=== PATIENT | male | born 1950 | race Caucasian/White ===

== ENCOUNTER 2017-08-27 18:04 | Inpatient (IN) | payer MEDICARE, MEDICAID ==
[2017-08-27] MEDS ORDERED: Pantoprazole 40 mg EC Tab PO STA (18:21)
--- NOTE | 2017-08-27 18:21 | ED Physician Chart ---
ED Chief Complaint/HPI - Patient Information Date Seen:: 08/27/17 Time Seen:: 18:21 Chief Complaint:: Left leg pain, unsteady gait History of Present Illness:: 67 yo male with a history of diabetic neuropathy, has left leg pain and unsteady gait requiring walker and/or wheelchair for 2 years worsening for a few weeks. [facility] and was brought to ER for further evaluation. He has a history of left lower extremity DVT 2 years ago. Allergies:: Allergies Allergy/AdvReac Type Severity Reaction Status Date / Time aspirin Allergy Verified 08/27/17 18:05 Vitals:: Vital Signs - 8 hr 08/27/17 18:10 Temp 99.6 F HR 62 RR 17 BP 151/78 O2 Sat % 97 ED Review of Systems - Review of Systems General/Constitutional: No fever, No chills, Weakness Skin: No skin lesions Head: No headache Eyes: No loss of vision Neck: No neck pain Cardio Vascular: No chest pain, edema Pulmonary: No SOB GI: No nausea, No vomiting G/U: No dysuria Musculoskeletal: Other (leg pain) Psychiatric: Depression ED Past Medical History - Past Medical History Obtainable: Yes Past Medical History: HTN, DM, Asthma/COPD, DVT/PE Social History: Non Smoker, No Alcohol, No Drug Use Surgical History: other (basal cell carcinoma removal) Family Medical History - Family Member Mother History Unknown: Yes ED Physical Exam - Physical Examination General/Constitutional: Awake, Alert Other Gen/Cons comments:: oriented to self, time and place. Head: Atraumatic Eyes: PERRL, EOMI Skin: No ecchymosis ENMT: External ears, nose nl Neck: Full ROM w/o pain Respiratory: Clear to Auscultation, No Wheeze/Rhonchi/Rales Cardio Vascular: RRR, No murmur, gallop, rubs, NL S1 S2 GI: No tenderness/rebounding/guarding Other Extremities comments:: Right ankle edema 2+ Other Neuro/Psych comments:: DTR bilateral patellar reflex 1+, decreased sensation on the left lower extremity ED Assessment - Assessment General Assessment: 67 yo male has DM II, diabetic neuropathy, anemia, right lower extremity edema, unsteady gait and dehydration. Critical Care Time: 45 min Excludes all billable procedures: Yes This condition life threatening/high prob of deterioration: No Assessment/Comments:: CBC, CMP, A1c, BNP, Trop I right lower extremity venous u/s to rule out DVT given history of DVT. Lumbar spine X ray to evaluate potential degenerative lumbar spine disease causing lumbar radiculopathy. ED Septic Shock - . Is Septic Shock (SBP<90, OR Lactate>4 mmol\L) present?: No - <6hrs of presentation: Vital Signs: Vital Signs - 8 hr 08/27/17 18:10 Temp 99.6 F HR 62 RR 17 BP 151/78 O2 Sat % 97
[2017-08-27] MEDS ORDERED: Pantoprazole 40 mg EC Tab PO ONE (18:25)
[2017-08-27 19:16] LABS: % BASOPHILS 0.1 % (0.0-2.0); % EOSINOPHILS 1.9 % (0.0-5.0); % LYMPHOCYTES 22.8 % (20.0-50.0); % MONOCYTES 5.5 % (2.0-10.0); % NEUTROPHILS 69.7 % (40.0-80.0); HEMOGLOBIN 11.9 gm/dL (12-16); MEAN CELL VOLUME 90.6 fl (80-99); MEAN CORPUSCULAR HEMOGLOBIN 30.7 pg (27.0-31.0); MEAN CORPUSCULAR HGB CONC 33.9 pg (28.0-36.0); MEAN PLATELET VOLUME 10.8 fl; NEUTROPHILE ABSOLUTE 5.4 Th/cmm (1.8-8.0); PLATELET COUNT 128 Th/cmm (150-400); RED BLOOD COUNT 3.86 Mil/cmm (3.80-5.80); RED CELL DISTRIBUTION WIDTH 12.6 % (11.5-20.0); WHITE BLOOD COUNT 7.6 Th/cmm (4.8-10.8)
[2017-08-27 19:34] LABS: ALB/GLOB RATIO 1.2 (1.0-1.8); ALKALINE PHOSPHATASE 87 U/L (34-104); ANION GAP 9.5 (7.0-16.0); BILIRUBIN,TOTAL 0.2 mg/dL (0.3-1.0); BUN - UREA NITROGEN 30 mg/dL (7-25); BUN/CREATININE RATIO 23.1; CALCIUM SERUM 9.3 mg/dL (8.6-10.3); CARBON DIOXIDE 23.9 mEq/L (21.0-31.0); CHLORIDE 111 mEq/L (98-107); CREATININE - SERUM 1.3 mg/dL (0.7-1.3); GLUCOSE 143 mg/dL (70-105); POTASSIUM SERUM 4.4 mEq/L (3.5-5.1); SGOT 12 U/L (13-39); SGPT/ALT 16 U/L (7-52); SODIUM SERUM 140 mEq/L (136-145)
[2017-08-27 19:42] LABS: BNP 33.5 pg/mL (5.0-100.0)
--- NOTE | 2017-08-27 22:49 | ER Physician Documentation ---
DATE OF SERVICE: HISTORY OF PRESENT ILLNESS: I was endorsed by previous ER physician, Dr. Barraza who advised that to call Dr. Miller who referred the patient to the Emergency Room because of the patient having pain in the left lower extremity. He had a previous history of some kind of venous problems in the legs or arterial problem in the leg and his leg is hurting. He has diabetes mellitus and other medical problems. Laboratory workup was done. He ordered EKG, which was within normal limits. Troponin was within normal limits. Hemoglobin A1c is elevated to 6.6 and the patient's electrolytes were sodium 140, potassium 4.4, chloride 111, CO2 23.9, glucose is 143, BUN 30, creatinine is 1.3, BUN and creatinine ratio is 23.1, albumin is 3.8, SGOT 12, and SGPT is 16. The patient was on multiple medications. Just I am dictating in case of if Dr. Barraza has not dictated. [facility] believe a [facility]term care facility, [facility] just in case if Dr. Barraza has not dictated, I just will mention what he is taking in order to facilitate the availability to Dr. Miller about the medication is solifenacin succinate, that is VESIcare 5 mg p.o. daily; Tylenol on a p.r.n. basis; Tylenol with codeine 300 mg/30 mg #3 p.r.n.; guaifenesin; Robitussin-DM; Tylenol p.r.n.; Pepcid 20 mg p.o. b.i.d.; Plavix 75 mg p.o. once a day; amlodipine 10 mg p.o. daily; multivitamin 1 capsule daily; gabapentin 300 mg p.o. daily; metformin 500 mg p.o. b.i.d.; magnesium hydroxide 30 mL p.r.n.; psyllium 1 packet p.o. daily, melatonin 10 mg p.o. at bedtime; lisinopril 5 mg p.o. daily; loperamide 2 mg p.o. q.6 hourly; atorvastatin; calcium; Lipitor 40 mg p.o. at bedtime; Coreg 12.5 mg b.i.d.; and docusate sodium 100 mg b.i.d. FINAL DIAGNOSES: 1. Pain in the lower extremities. 2. Diabetes mellitus. 3. The patient has peripheral neuropathy. 4. The patient has cough. 5. History of constipation. 6. Hypertension. 7. Hypercholesterolemia. 8. Hypertensive heart disease. 9. Inability to walk and uses walker to walk. The plan is to admit the patient and do further workup as needed. We will call Dr. Miller and ask what further things he wants to do and I believe he would like to admit the patient, so we will give him more advice and follow up his instructions. So plan, I was told that he would like to admit the patient to do a workup on this patient, probably ultrasound of the carotids, ultrasound of the lower extremities. EKG, I saw was within normal limits. [facility]# [id number]
[2017-08-27 23:40] VITALS: BP 131/82
[2017-08-28] MEDS: INSULIN ASPART SLIDING SCALE 100 UNITS/ML UNIT SUBQ SCH ×4 (00:50→17:24)
[2017-08-28 05:26] LABS: % BASOPHILS 0.2 % (0.0-2.0); % EOSINOPHILS 1.8 % (0.0-5.0); % LYMPHOCYTES 28.5 % (20.0-50.0); % MONOCYTES 8.6 % (2.0-10.0); % NEUTROPHILS 60.9 % (40.0-80.0); MEAN CELL VOLUME 90.4 fl (80-99); MEAN CORPUSCULAR HEMOGLOBIN 30.1 pg (27.0-31.0); MEAN CORPUSCULAR HGB CONC 33.3 pg (28.0-36.0); NEUTROPHILE ABSOLUTE 4.8 Th/cmm (1.8-8.0); PLATELET COUNT 128 Th/cmm (150-400); RED BLOOD COUNT 3.65 Mil/cmm (3.80-5.80); RED CELL DISTRIBUTION WIDTH 12.6 % (11.5-20.0); WHITE BLOOD COUNT 7.9 Th/cmm (4.8-10.8)
[2017-08-28 05:39] LABS: BUN - UREA NITROGEN 31 mg/dL (7-25); BUN/CREATININE RATIO 23.8; CARBON DIOXIDE 22.9 mEq/L (21.0-31.0); CHLORIDE 113 mEq/L (98-107); CHOLESTEROL 87 mg/dL (<200); CREATININE - SERUM 1.3 mg/dL (0.7-1.3); GLUCOSE 157 mg/dL (70-105); POTASSIUM SERUM 3.9 mEq/L (3.5-5.1); SODIUM SERUM 142 mEq/L (136-145); TRIGLYCERIDES 143 mg/dL (<150)
--- NOTE | 2017-08-28 07:37 | Diagnostic Imaging Report ---
Portable chest x-ray Time: 1859 hours History: Cough Allowing for portable technique the heart size is normal. No focal pulmonary parenchymal processes. No hilar or mediastinal abnormalities. Impression: No acute abnormalities.
--- NOTE | 2017-08-28 12:49 | Diagnostic Imaging Report ---
Bilateral lower extremity DVT study HISTORY: Pain, weakness COMPARISON: None Technique: Longitudinal and transverse sonographic images of the bilateral lower extremity veins were obtained with doppler analysis. FINDINGS: There is normal compressibility, augmentation and phasicity of the bilateral common femoral, superficial femoral, popliteal, and posterior tibial veins. No thrombus is visualized. IMPRESSION: No evidence of thrombus within the bilateral lower extremity veins.
--- NOTE | 2017-08-28 12:52 | Diagnostic Imaging Report ---
Bilateral lower extremity arterial Doppler study HISTORY: Pain COMPARISON: None Technique: Longitudinal and transverse sonographic images of the bilateral lower extremity arteries were obtained with doppler analysis. FINDINGS: Exam of the right side demonstrates moderate generalized atherosclerotic vascular disease. There is triphasic flow extending from the right common femoral artery to the right posterior tibial artery. There is monophasic flow and decreased velocity of the right dorsalis pedis artery at 22 cm/second. Right WES:1 Exam of the left side demonstrates moderate atherosclerotic vascular disease greatest distally. There is triphasic flow extending from the left common femoral to the left popliteal arteries. There is biphasic flow within the left tibialis anterior, tibialis posterior, and dorsalis pedis arteries. Increased velocity of the left posterior tibialis artery is seen is 135 cm/second. Left WES: 1 IMPRESSION: Moderate generalized atherosclerotic vascular disease, greatest distally. No sonographic evidence of occlusion. If indicated CT angiography of the lower extremities may also be obtained.
[2017-08-28] MEDS ORDERED: Fleet Enema 135 mL RC PRN (14:18)
[2017-08-28] MEDS ORDERED: APAP/Codeine 300 mg/30 mg Tab PO PRN (14:18)
[2017-08-28] MEDS ORDERED: Guaifenesin DM 10 ML UDC PO PRN (14:18)
[2017-08-28] MEDS ORDERED: Acetaminophen 500 MG TAB PO PRN (14:18)
[2017-08-28] MEDS ORDERED: Magnesium Hydroxide (MOM) 30 mL UDC PO PRN (14:18)
[2017-08-28] MEDS ORDERED: VTE Chemical Prophylaxis Screen/Admission MC PRN (15:56)
[2017-08-28] MEDS ORDERED: Non-Formulary Item 1 EA (Melatonin [Melatonin] 10 MG) PO SCH (21:00)
[2017-08-29] MEDS: INSULIN ASPART SLIDING SCALE 100 UNITS/ML UNIT SUBQ SCH ×4 (00:13→17:32)
[2017-08-29] MEDS ORDERED: Non-Formulary Item 1 EA (Solifenacin Succinate [Vesicare] 5 MG) PO SCH (09:00)
[2017-08-29 09:30] LABS: % BASOPHILS 0.6 % (0.0-2.0); % EOSINOPHILS 2.4 % (0.0-5.0); % LYMPHOCYTES 28.7 % (20.0-50.0); % MONOCYTES 7.7 % (2.0-10.0); % NEUTROPHILS 60.6 % (40.0-80.0); HEMATOCRIT 36.1 % (41.0-60); MEAN CELL VOLUME 91.3 fl (80-99); MEAN CORPUSCULAR HEMOGLOBIN 30.5 pg (27.0-31.0); MEAN CORPUSCULAR HGB CONC 33.4 pg (28.0-36.0); MEAN PLATELET VOLUME 10.6 fl; NEUTROPHILE ABSOLUTE 5.1 Th/cmm (1.8-8.0); PLATELET COUNT 132 Th/cmm (150-400); RED BLOOD COUNT 3.95 Mil/cmm (3.80-5.80); RED CELL DISTRIBUTION WIDTH 12.7 % (11.5-20.0); WHITE BLOOD COUNT 8.6 Th/cmm (4.8-10.8)
[2017-08-29 09:50] LABS: ANION GAP 9.4 (7.0-16.0); BUN - UREA NITROGEN 25 mg/dL (7-25); BUN/CREATININE RATIO 19.2; CALCIUM SERUM 8.7 mg/dL (8.6-10.3); CARBON DIOXIDE 23.5 mEq/L (21.0-31.0); CHLORIDE 110 mEq/L (98-107); CREATININE - SERUM 1.3 mg/dL (0.7-1.3); GLUCOSE 181 mg/dL (70-105); POTASSIUM SERUM 3.9 mEq/L (3.5-5.1); SODIUM SERUM 139 mEq/L (136-145)
[2017-08-29] MEDS: Multivitamin Tab PO SCH (09:56)
--- NOTE | 2017-08-29 12:00 | Diagnostic Imaging Report ---
Stenosis Findings: Real-time ultrasound examination of the extracranial carotid circulation was performed utilizing color Doppler technique. The study demonstrates calcified plaque formation along the course of common carotid arteries extending into origin of the external and external carotid arteries bilaterally with mild to moderate plaquing in the origin of internal carotid arteries bilaterally with subintimal thickening carotid bulbs bilaterally. Right internal carotid artery ratio 0.8 left internal correlation 1.9. Antegrade flow is noted in the vertebral circulation bilaterally. IMPRESSION: Mild to moderate plaque formation in the origin internal carotid arteries bilaterally without significant stenosis or alteration of flow. The intimal thickening carotid bulbs bilaterally.
[2017-08-30] MEDS: INSULIN ASPART SLIDING SCALE 100 UNITS/ML UNIT SUBQ SCH ×3 (01:13→12:33)
[2017-08-30] MEDS: Multivitamin Tab PO SCH (10:05)
--- NOTE | 2017-08-30 20:54 | History & Physical ---
ADMIT DATE: 08/27/2017 HISTORY OF PRESENT ILLNESS: A very well known patient to me. The patient lives in a correction, having a problem walking, and ataxia. The patient was complaining of leg pain. The patient is known to have a history of diabetes, history of hypertension, history of peripheral vascular disease, and the patient was evaluated in [facility], was seen by ____ and followed by ____ and the patient was admitted for severe neuropathy and ataxia, rule out TIA. PAST MEDICAL HISTORY: Hypertension, history of diabetes, history of cough, history of hypertensive cardiovascular disease, and difficulty walking. PHYSICAL EXAMINATION: HEAD: Normal. ENT: Normal. NECK: Supple and nontender. LUNGS: Clear. CARDIOVASCULAR SYSTEM: S1 and S2 heard. ABDOMEN: Soft. Bowel sounds are heard. CENTRAL NERVOUS SYSTEM: The patient is awake and alert, but complaining of severe neuropathy pain. DIAGNOSES: Severe neuropathy, ataxia, anemia, right lower extremity pain, unsteady gait, dehydration, diabetes, and hypertension. PLAN: The patient is being admitted for further workup with neurological and cardiovascular studies and I will follow the patient. JOB# [id number]
--- NOTE | 2017-09-01 22:36 | Discharge Summary ---
DATE OF DISCHARGE: 08/30/2017 COURSE OF TREATMENT: This is a 67-year-old male who was admitted from assisted facility through the Emergency Room due to severe leg pain on which series of treatment were done in the Emergency Room and the patient was found to have neuropathy. The patient was admitted to med/surg unit for observation and possible series of ultrasound with the diagnosis of severe neuropathy. The patient was discharged back to [facility]. Medication reconciliation done accordingly. Dr. Miller to follow the patient in assisted facility. JOB# [id number]
== END 2017-08-30 13:58 | disposition home or self-care (01) | DRG 74 ==
LOC: ER 18:04 → MSI 20:30 → TELE 08-28 02:31
PROVIDERS: ADMIT Internal Medicine; ATTEND Internal Medicine
DX: E11.42 Type 2 diabetes mellitus with diabetic polyneuropathy (principal); E11.51 Type 2 diabetes mellitus with diabetic peripheral angiopathy without gangrene; I11.9 Hypertensive heart disease without heart failure; K59.00 Constipation, unspecified; E86.0 Dehydration; J44.9 Chronic obstructive pulmonary disease, unspecified; D64.9 Anemia, unspecified; E78.00 Pure hypercholesterolemia, unspecified; R27.0 Ataxia, unspecified; Z88.8 Allergy status to other drugs, medicaments and biological substances; Z86.718 Personal history of other venous thrombosis and embolism
CPT/HCPCS: 36415-UA; 71010-TC; 80048-TC; 80053-TC; 80061-TC; 82948-90; 83036-90; 83880-TC; 84443-TC; 84484-TC; 85025-TC; 93005; 93880-TC; 93925-TC; 93970-TC-50; 97530; J1815; X3904; Z7502; Z7610

== ENCOUNTER 2018-05-03 14:40 | Inpatient (IN) | payer MEDICARE, MEDICAID ==
--- NOTE | 2018-05-03 15:17 | ED Physician Chart ---
ED Chief Complaint/HPI - Patient Information Date Seen:: 05/03/18 Time Seen:: 14:20 Chief Complaint:: Dizziness History of Present Illness:: onset x 3 days of weakness, dizziness, gait changes, unsteady gait, and vertigo ; no report of trauma, H/As, neck pain, C/P, SOB, Abd. Pain, A/N/V/D/C, fever, chills, or urinary s/s Allergies:: Allergies Allergy/AdvReac Type Severity Reaction Status Date / Time aspirin Allergy Verified 08/27/17 18:05 Historian:: Patient, EMS Review:: Nurse's Note Reviewed, Old Chart Reviewed, EMS run form Reviewed ED Review of Systems - Review of Systems General/Constitutional: No fever, No chills, No weight loss, No weakness, No diaphoresis, No edema, No loss of appetite Skin: No skin lesions, No rash, No bruising Head: No headache, No light-headedness Eyes: No loss of vision, No pain, No diplopia ENT: No earache, No nasal drainage, No sore throat, No tinnitus Neck: No neck pain, No swelling, No thyromegaly, No stiffness, No mass noted Cardio Vascular: No chest pain, No palpitations, No PND, No orthopnea, No edema Pulmonary: No SOB, No cough, No sputum, No wheezing GI: No nausea, No vomiting, No diarrhea, No pain, No melena, No hematochezia, No constipation, No hematemesis G/U: No dysuria, No frequency, No hematuria, No nacturia Musculoskeletal: No bone or joint pain, No back pain, No muscle pain Endocrine: No polyuria, No polydipsia Psychiatric: No prior psych history, No depression, No anxiety, No suicidal ideation, No homicidal ideation, No auditory hallucination, No visual hallucination Hematopoietic: No bruising, No lymphadenopathy Allergic/Immuno: No urticaria, No angioedema Neurological: Syncope, No focal symptoms, Weakness, No paresthesia, No headache , No seizure, Dizziness, No confusion, Vertigo ED Past Medical History - Past Medical History Obtainable: Yes Past Medical History: HTN, Dyslipidemia Family History: HTN Social History: Non Smoker, No Alcohol, No Drug Use, Single, Care Facility Surgical History: None Psychiatricy History: None Medication: Reviewed Family Medical History - Family Member Mother History Unknown: Yes ED Physical Exam - Physical Examination General/Constitutional: Awake, Well-developed, well-nourished, Alert, No distress, GCS 15, Non-toxic appearing, Ambulatory Head: Atraumatic Eyes: Lids, conjuctiva normal, PERRL, EOMI Skin: Nl inspection, No rash, No skin lesions, No ecchymosis, Well hydrated, No lymphadenopathy ENMT: External ears, nose nl, TM canals nl, Nasal exam nl, Lips, teeth, gums nl , Oropharynx nl, Tonsils nl Neck: Nontender, Full ROM w/o pain, No JVD, No nuchal rigidity, No bruit, No mass, No stridor Respiratory: Nl effort/Exclusion, Clear to Auscultation, No Wheeze/Rhonchi/Rales Cardio Vascular: RRR, No murmur, gallop, rubs, NL S1 S2, Carotid/Femoral/Distal pulses equal bilaterally GI: No tenderness/rebounding/guarding, No organomegaly, No hernia, Normal BS's, Nondistended, No mass/bruits, No McBurney tenderness, Rectum exam nl : No CVA tenderness Extremities: No tenderness or effusion, Full ROM, normal strength in all extremities, No edema, Normal digits & nails Neuro/Psych: Alert/oriented, DTR's symmetric, Normal sensory exam, Normal motor strength, Judgement/insight normal, Mood normal, Normal gait, No focal deficits Misc: Normal back, No paraspinal tenderness ED Labs/Radiology/EKG Results - Lab Results Comments:: + Anemia - Radiology Results Comments:: NAD - EKG Interpretations EKG Time:: 15:03 Rate & Rhythm: 66; NSR Comments:: non-specific st-t changes ED Septic Shock - . Is Septic Shock (SBP<90, OR Lactate>4 mmol\L) present?: No ED Reassessment (Disposition) - Reassessment Reassessment Condition:: Improved - Diagnosis Diagnosis:: Dizziness; Vertigo; TIA; Cardiac Arrythmias; Anemia - Aftercare/Follow up Instructions Aftercare/Follow-Up Instructions:: Counseled pt regarding lab results/diagnosis & need follow up, Counseled pt & family regarding lab results/diagnosis & need follow up - Patient Disposition Discharge/Transfer:: Acute Care w/in this hosp Accepting Physician:: Dr. Miller Time Called:: 1700 Time Responded:: 17:00 Admitted to:: Telemetry Spoke to:: Dr. Miller Admitting Medical Physician:: Dr. Miller Condition at Disposition:: Stable, Improved
[2018-05-03 15:34] LABS: EOSINOPHILE ABSOLUTE 0.2 Th/cmm (0.1-0.4); LYMPHOCYTE ABSOLUTE 1.7 Th/cmm (1.5-3.0); NEUTROPHILE ABSOLUTE 4.3 Th/cmm (1.8-8.0)
[2018-05-03 15:35] LABS: INR 1.08 (0.5-1.4); PROTHROMBIN TIME (TEST) 11.2 SECONDS (9.5-11.5)
[2018-05-03 15:37] LABS: % BASOPHILS 0.8 % (0.0-2.0); % EOSINOPHILS 2.9 % (0.0-5.0); % LYMPHOCYTES 23.4 % (20.0-50.0); % MONOCYTES 12.2 % (2.0-10.0); % NEUTROPHILS 60.7 % (40.0-80.0); BASOPHILE ABSOLUTE 0.1 Th/cumm (0-0.2); HEMATOCRIT 32.9 % (41.0-60); HEMOGLOBIN 11.2 gm/dL (12-16); MEAN CELL VOLUME 90.4 fl (80-99); MEAN CORPUSCULAR HEMOGLOBIN 30.9 pg (27.0-31.0); MEAN CORPUSCULAR HGB CONC 34.2 pg (28.0-36.0); MONOCYTE ABSOLUTE 0.9 Th/cmm (0.3-1.0); PLATELET COUNT 137 Th/cmm (150-400); RED BLOOD COUNT 3.64 Mil/cmm (3.80-5.80); RED CELL DISTRIBUTION WIDTH 14.1 % (11.5-20.0); WHITE BLOOD COUNT 7.2 Th/cmm (4.8-10.8)
[2018-05-03 15:39] LABS: ALB/GLOB RATIO 1.1 (1.0-1.8); ALBUMIN 3.7 gm/dL (4.2-5.5); ANION GAP 12.1 (7.0-16.0); BILIRUBIN,TOTAL 0.3 mg/dL (0.3-1.0); CALCIUM SERUM 9.2 mg/dL (8.6-10.3); CARBON DIOXIDE 23.2 mEq/L (21.0-31.0); CREATININE - SERUM 1.8 mg/dL (0.7-1.3); GFR AFRICAN-AMERICAN 48.2 ml/min (>90); GFR NON AFRICAN-AMERICAN 39.8 ml/min; POTASSIUM SERUM 4.3 mEq/L (3.5-5.1)
[2018-05-03] MEDS ORDERED: Fleet Enema 135 mL RC PRN (21:02)
[2018-05-03] MEDS ORDERED: Magnesium Hydroxide (MOM) 30 mL UDC PO PRN (21:02)
[2018-05-03] MEDS: Sodium Chloride 0.45% 1,000 ML IV SCH (22:24)
[2018-05-03] MEDS: Atorvastatin Calcium 10 MG TAB PO SCH (22:56)
[2018-05-03] MEDS: INSULIN ASPART SLIDING SCALE 100 UNITS/ML UNIT SUBQ SCH (23:08)
[2018-05-04] MEDS: Guaifenesin DM 10 ML UDC PO PRN (00:28)
[2018-05-04] MEDS: INSULIN ASPART SLIDING SCALE 100 UNITS/ML UNIT SUBQ SCH ×3 (05:41→19:21)
[2018-05-04 06:31] LABS: ALB/GLOB RATIO 1.2 (1.0-1.8); ALBUMIN 3.5 gm/dL (4.2-5.5); ALKALINE PHOSPHATASE 88 U/L (34-104); ANION GAP 9.8 (7.0-16.0); BILIRUBIN,TOTAL 0.3 mg/dL (0.3-1.0); BUN - UREA NITROGEN 31 mg/dL (7-25); CALCIUM SERUM 8.9 mg/dL (8.6-10.3); CARBON DIOXIDE 23.2 mEq/L (21.0-31.0); CHLORIDE 111 mEq/L (98-107); CHOLESTEROL 93 mg/dL (<200); CREATININE - SERUM 1.4 mg/dL (0.7-1.3); GFR AFRICAN-AMERICAN > 60.0 ml/min (>90); GFR NON AFRICAN-AMERICAN 53.3 ml/min; GLUCOSE 162 mg/dL (70-105); HDL -HIGH DENSITY LIPOPROTEIN 29 mg/dL (23-92); SGOT 14 U/L (13-39); SGPT/ALT 17 U/L (7-52); SODIUM SERUM 140 mEq/L (136-145); TOTAL PROTEIN,SERUM 6.5 gm/dL (6.0-8.3); TRIGLYCERIDES 157 mg/dL (<150)
[2018-05-04 06:44] LABS: % BASOPHILS 0.6 % (0.0-2.0); % EOSINOPHILS 3.6 % (0.0-5.0); % LYMPHOCYTES 27.7 % (20.0-50.0); % NEUTROPHILS 57.1 % (40.0-80.0); EOSINOPHILE ABSOLUTE 0.2 Th/cmm (0.1-0.4); HEMATOCRIT 31.3 % (41.0-60); HEMOGLOBIN 10.9 gm/dL (12-16); LYMPHOCYTE ABSOLUTE 1.9 Th/cmm (1.5-3.0); MEAN CELL VOLUME 90.1 fl (80-99); MEAN CORPUSCULAR HEMOGLOBIN 31.3 pg (27.0-31.0); MEAN CORPUSCULAR HGB CONC 34.7 pg (28.0-36.0); MEAN PLATELET VOLUME 10.2 fl; MONOCYTE ABSOLUTE 0.7 Th/cmm (0.3-1.0); NEUTROPHILE ABSOLUTE 3.9 Th/cmm (1.8-8.0); PLATELET COUNT 129 Th/cmm (150-400); RED BLOOD COUNT 3.47 Mil/cmm (3.80-5.80); RED CELL DISTRIBUTION WIDTH 14.2 % (11.5-20.0); WHITE BLOOD COUNT 6.7 Th/cmm (4.8-10.8)
[2018-05-04] MEDS: Multivitamin Tab PO SCH ×2 (09:23→10:36)
--- NOTE | 2018-05-04 09:43 | Diagnostic Imaging Report ---
Exam: CT examination of brain. HISTORY: Unsteady gait. Total DLP equals 728 CTDI equals 40.9 Findings: Multiple contiguous thin section of the brain were obtained from the base of skull to the vertex without the administration of contrast material, no prior studies available comparison. The study demonstrates a prominence of cerebral sulci and ventricles. There is no evidence for hemorrhage midline shift or edema. Atherosclerotic vascular calcification appreciated. Bony calvarium is intact. The paranasal sinuses are well aerated. Mild mucosal thickening of the right mastoid air cells noted. IMPRESSION: Mild atrophy. Atherosclerotic vascular changes.
--- NOTE | 2018-05-04 10:03 | Diagnostic Imaging Report ---
Portable chest x-ray Time: 1513 History: Chest pain Allowing for portable technique the heart size is normal. No focal pulmonary parenchymal processes. No hilar or mediastinal abnormalities. Impression: No acute abnormalities.
--- NOTE | 2018-05-04 16:58 | History & Physical ---
ADMIT DATE: 05/04/2018 HISTORY OF PRESENT ILLNESS: This is a 68-year-old male who was admitted from a group home facility to the Emergency Room due to 3-day onset of dizziness. The patient denies any fall episode. Denies any loss of consciousness. REVIEW OF SYSTEMS: GENERAL: This is a 68-year-old male that appears as stated. Denies any weight loss. Denies any fever. HEAD: Positive dizziness. Denies headache. EYES: Denies eye pain. Denies blurring of vision. NECK: Denies neck pain. Denies nuchal rigidity. CHEST: Denies chest pain. Denies palpitation. PULMONARY: Denies coughing. Denies shortness of breath. GASTROINTESTINAL: Denies abdominal pain. Denies constipation. Denies diarrhea. MUSCULOSKELETAL: Denies muscle pain. Denies joint pain. SOCIAL HISTORY: The patient lives in a group home facility prior to hospitalization. PAST MEDICAL HISTORY: Includes hypertension, osteoarthritis, gout, hyperlipidemia, coronary artery disease, gastroesophageal reflux disease, neuropathy, diabetes mellitus. PAST SURGICAL HISTORY: Unremarkable. FAMILY HISTORY: Unremarkable. PHYSICAL EXAMINATION: VITAL SIGNS: Temperature 97.8, heart rate of 73, blood pressure 126/70, respiration of 20, 98% on room air. HEENT: Head is atraumatic and normocephalic. Eyes: Bilateral conjunctivae are clear. Bilateral pupils equal, round and reactive. NECK: Supple. No JVD. CARDIOVASCULAR: S1 and S2, without murmur. CHEST: Clear to auscultation. GASTROINTESTINAL: Soft and nontender without guarding. Positive bowel sounds. MUSCULOSKELETAL: No clubbing. No cyanosis noted. ASSESSMENT: 1. Vertigo. 2. Anemia. 3. Hypertension. 4. Osteoarthritis. 5. Gout. 6. Hyperlipidemia. 7. Coronary artery disease. 8. Gastroesophageal reflux disease. 9. Neuropathy. PLAN: We will keep the patient inpatient to telemetry. We will also get a consult with a neurologist. We will do medication reconciliation accordingly. Treatment plans were discussed with the patient's nurse. Treatment plans were discussed with Dr. Miller. JOB# [id number]
[2018-05-04 18:30] LABS: A1C % 7.6 % (4.0-6.0)
[2018-05-04] MEDS: Sodium Chloride 0.45% 1,000 ML IV SCH (19:18)
[2018-05-04] MEDS ORDERED: Maalox 30 mL Cup PO PRN (20:45)
[2018-05-04] MEDS ORDERED: Non-Formulary Item 1 EA (Melatonin [Melatonin] 10 MG) PO SCH (21:00)
[2018-05-04] MEDS ORDERED: Non-Formulary Item 1 EA (Atorvastatin Calcium [Lipitor] 40 MG) PO SCH (21:00)
[2018-05-04] MEDS: Atorvastatin Calcium 10 MG TAB PO SCH (22:23)
[2018-05-05] MEDS: Guaifenesin DM 10 ML UDC PO PRN ×2 (00:01→21:52)
[2018-05-05] MEDS: INSULIN ASPART SLIDING SCALE 100 UNITS/ML UNIT SUBQ SCH ×5 (00:47→23:51)
--- NOTE | 2018-05-05 09:43 | Diagnostic Imaging Report ---
Exam: Ultrasound summation abdomen HISTORY: Abdominal pain Findings: Real-time ultrasound examination abdomen performed multiple planes the study demonstrates normal echogenicity liver parenchyma. There is evidence for 2.5 x 2.57 the cyst in the right lobe of liver There is evidence for a sludge in gallbladder. There is no evidence for pericholecystic fluid collection. The common bile duct measures 4 mm The pancreas is not seen. There is evidence for a severe hydronephrosis of right kidney. There is evidence for hydronephrosis of left kidney. Left renal calculus measuring 2.2 cm appreciated. The spleen is intact. No free fluid is noted. IMPRESSION: 1. Gallbladder sludge 2. Bilateral hydronephrosis 3. Left renal calculus
--- NOTE | 2018-05-05 10:13 | GI Progress Note ---
Subjective - Review of Systems Service Date: 05/05/18 Subjective: EVENTS NOTED. TEODORA CLEARS. NO ABD PAIN. Objective - Results Result Diagrams: 05/04/18 06:00 05/04/18 06:00 Recent Labs: Laboratory Last Values WBC 6.7 Th/cmm (4.8-10.8) 05/04/18 06:00 RBC 3.47 Mil/cmm (3.80-5.80) L 05/04/18 06:00 Hgb 10.9 gm/dL (12-16) L 05/04/18 06:00 Hct 31.3 % (41.0-60) L 05/04/18 06:00 MCV 90.1 fl (80-99) 05/04/18 06:00 MCH 31.3 pg (27.0-31.0) H 05/04/18 06:00 MCHC Differential 34.7 pg (28.0-36.0) 05/04/18 06:00 RDW 14.2 % (11.5-20.0) 05/04/18 06:00 Plt Count 129 Th/cmm (150-400) L 05/04/18 06:00 MPV 10.2 fl 05/04/18 06:00 Neutrophils % 57.1 % (40.0-80.0) 05/04/18 06:00 Lymphocytes % 27.7 % (20.0-50.0) 05/04/18 06:00 Monocytes % 11.0 % (2.0-10.0) H 05/04/18 06:00 Eosinophils % 3.6 % (0.0-5.0) 05/04/18 06:00 Basophils % 0.6 % (0.0-2.0) 05/04/18 06:00 PT 11.2 SECONDS (9.5-11.5) 05/03/18 15:10 INR 1.08 (0.5-1.4) 05/03/18 15:10 Sodium 140 mEq/L (136-145) 05/04/18 06:00 Potassium 4.0 mEq/L (3.5-5.1) 05/04/18 06:00 Chloride 111 mEq/L (98-107) H 05/04/18 06:00 Carbon Dioxide 23.2 mEq/L (21.0-31.0) 05/04/18 06:00 Anion Gap 9.8 (7.0-16.0) 05/04/18 06:00 BUN 31 mg/dL (7-25) H 05/04/18 06:00 Creatinine 1.4 mg/dL (0.7-1.3) H 05/04/18 06:00 Est GFR ( Amer) > 60.0 ml/min (>90) 05/04/18 06:00 Est GFR (Non-Af Amer) 53.3 ml/min 05/04/18 06:00 BUN/Creatinine Ratio 22.1 05/04/18 06:00 Glucose 162 mg/dL (70-105) H 05/04/18 06:00 POC Glucose 145 MG/DL (70 - 105) H 05/05/18 06:57 Hemoglobin A1c % 7.6 % (4.0-6.0) H 05/03/18 15:10 Calcium 8.9 mg/dL (8.6-10.3) 05/04/18 06:00 Total Bilirubin 0.3 mg/dL (0.3-1.0) 05/04/18 06:00 AST 14 U/L (13-39) 05/04/18 06:00 ALT 17 U/L (7-52) 05/04/18 06:00 Alkaline Phosphatase 88 U/L (34-104) 05/04/18 06:00 Creatine Kinase 131 U/L (30-223) 05/03/18 15:10 Troponin I 0.01 ng/mL (0.01-0.05) 05/03/18 15:10 B-Natriuretic Peptide 116.0 pg/mL (5.0-100.0) H 05/03/18 15:10 Total Protein 6.5 gm/dL (6.0-8.3) 05/04/18 06:00 Albumin 3.5 gm/dL (4.2-5.5) L 05/04/18 06:00 Globulin 3.0 gm/dL 05/04/18 06:00 Albumin/Globulin Ratio 1.2 (1.0-1.8) 05/04/18 06:00 Triglycerides 157 mg/dL (<150) H 05/04/18 06:00 Cholesterol 93 mg/dL (<200) 05/04/18 06:00 LDL Cholesterol Direct 42 mg/dL (75-193) L 05/04/18 06:00 HDL Cholesterol 29 mg/dL (23-92) 05/04/18 06:00 TSH 6.87 uIU/ml (0.34-5.60) H 05/04/18 06:00 - Physical Exam Vitals and I&O: Vital Signs Temp 97.9 F 05/05/18 07:45 Pulse 63 05/05/18 07:45 Resp 18 05/05/18 07:45 BP 140/68 05/05/18 07:45 Pulse Ox 100 05/05/18 07:45 Intake & Output 05/04/18 05/05/18 05/05/18 18:59 06:59 18:59 Intake Total 1500 150 Output Total 700 Balance 800 150 Weight (lbs) 101.423 kg 101.151 kg Intake: Intake, IV Amount 1000 Sodium Chloride 0.45% 1, 1000 000 ml @ 50 mls/hr IV . Q20H [facility] Rx#:[id number] Oral 500 150 Output: Urine 700 Stool 0 Other: # Voids 3 # Bowel Movements 0 Weight Source Bedscale Bedscale Active Medications: Current Medications Acetaminophen (Tylenol) 650 mg PO Q4H PRN PRN Reason: Pain or Fever >101 Stop: 07/02/18 21:01 Acetaminophen/Codeine Phosphate (Tylenol W/Codeine #3) 1 tab PO Q8H PRN PRN Reason: FOR PAIN IF TYLENOL INEFFECTIV Stop: 07/02/18 21:01 Al Hydrox/Mg Hydrox/Simethicone (Maalox) 30 ml PO Q4HR PRN PRN Reason: Heartburn Stop: 07/03/18 20:44 Last Admin: 05/04/18 22:23 Dose: 30 ml Allopurinol (Zyloprim) 100 mg PO DAILY [facility] Stop: 07/03/18 08:59 Last Admin: 05/04/18 10:36 Dose: 100 mg Amlodipine Besylate (Norvasc) 10 mg PO DAILY [facility] Stop: 07/03/18 08:59 Last Admin: 05/04/18 10:37 Dose: 10 mg Atorvastatin Calcium (Lipitor) 40 mg PO HS [facility] Stop: 07/02/18 22:59 Last Admin: 05/04/18 22:23 Dose: 40 mg Bisacodyl (Dulcolax 10 Mg Supp) 10 mg RC DAILY PRN PRN Reason: IF MOM INEFFECTIVE Stop: 07/02/18 21:01 Carvedilol (Coreg) 12.5 mg PO BID [facility] Stop: 07/03/18 08:59 Last Admin: 05/04/18 16:51 Dose: 12.5 mg Clopidogrel Bisulfate (Plavix) 75 mg PO DAILY [facility] Stop: 07/03/18 08:59 Last Admin: 05/04/18 10:37 Dose: 75 mg Diphenhydramine HCl (Benadryl) 25 mg PO Q8HR [facility] Stop: 07/03/18 04:59 Last Admin: 05/05/18 06:08 Dose: Not Given Docusate Sodium (Colace) 100 mg PO BID [facility] Stop: 07/03/18 08:59 Last Admin: 05/04/18 16:55 Dose: Not Given Gabapentin (Neurontin) 300 mg PO DAILY [facility] Stop: 07/03/18 08:59 Last Admin: 05/04/18 10:36 Dose: 300 mg Guaifenesin/Dextromethorphan (Robitussin Dm) 10 ml PO Q6H PRN PRN Reason: Cough Stop: 07/02/18 21:01 Last Admin: 05/05/18 00:01 Dose: 10 ml Sodium Chloride (Nacl 0.45%) 1,000 mls @ 50 mls/hr IV .Q20H [facility] Stop: 07/02/18 22:14 Last Admin: 05/04/18 19:18 Dose: 50 mls/hr Insulin Aspart (Novolog Insulin Sliding Scale) 0 units SUBQ Q6HR [facility]; Protocol Stop: 07/03/18 00:00 Last Admin: 05/05/18 07:01 Dose: Not Given Lisinopril (Zestril) 5 mg PO DAILY [facility] Stop: 07/03/18 08:59 Last Admin: 05/04/18 10:37 Dose: 5 mg Loperamide HCl (Imodium) 2 mg PO Q6H PRN PRN Reason: Diarrhea Stop: 07/02/18 21:01 Magnesium Hydroxide (Milk Of Magnesia) 30 ml PO HS PRN PRN Reason: Constipation Stop: 07/02/18 21:01 Metformin HCl (Glucophage) 500 mg PO BID [facility] Stop: 07/03/18 08:59 Last Admin: 05/04/18 16:50 Dose: 500 mg Miscellaneous (Melatonin [Melatonin]) 10 mg PO HS [facility] Stop: 07/03/18 20:59 Miscellaneous (Solifenacin Succinate [Vesicare]) 5 mg PO DAILY [facility] Stop: 07/03/18 08:59 Multivitamins/Vitamin C (Theragran) 1 tab PO DAILY [facility] Stop: 07/03/18 08:59 Last Admin: 05/04/18 10:36 Dose: 1 tab Pantoprazole Sodium (Protonix) 40 mg IVP DAILY [facility] Stop: 07/04/18 03:29 Last Admin: 05/05/18 03:12 Dose: 40 mg Psyllium Hydrophilic Mucilloid (Metamucil) 1 pkt PO DAILY PRN PRN Reason: BOWEL MANAGEMENT Stop: 07/02/18 21:01 Sodium Phosphate (Fleet Enema) 135 ml RC Q48H PRN PRN Reason: IF DULCOLAX INEFFECTIVE Stop: 07/02/18 21:01 Zolpidem Tartrate (Ambien) 5 mg PO HS PRN PRN Reason: Insomnia Stop: 07/02/18 21:01 Last Admin: 05/05/18 00:01 Dose: 5 mg General: Alert, Cooperative HEENT: Atraumatic Neck: Supple Cardiovascular: Regular rate Lungs: Clear to auscultation Abdomen: Bowel sounds, Soft, Obese, no Tender Assessment/Plan - Assessment Assessment: 1. VAGUE ABD PAIN. 2. ANEMIA. 3. OBESITY. - Plan Plan: 1. EGD AND COLONOSCOPY TOMORROW. 2. BOWEL PREP OVERNIGHT. 3. CLEAR LIQUIDS TODAY. 4. MONITOR HGB.
[2018-05-05] MEDS: Multivitamin Tab PO SCH ×2 (10:14→11:23)
--- NOTE | 2018-05-05 10:23 | Consultation ---
DATE OF CONSULTATION: 05/04/2018 GASTROENTEROLOGY CONSULTATION REQUESTING PHYSICIAN: Dr. Hansel Miller. REASON FOR CONSULTATION: Abdominal pain. HISTORY OF PRESENT ILLNESS: A 68-year-old male who is otherwise a poor historian, admitted for weakness and dizziness and unsteady gait. He was also noted to have chronic acid reflux. He also complained of vague left lower quadrant abdominal pain that he gets with intake of caffeine, aspirin and NSAIDs. He reports occasional rectal bleeding. He last reported colonoscopy 25-30 years ago, which may have shown polyps. He has never had a previous endoscopy. He denies nausea, vomiting, diarrhea or constipation. He does have some fecal urgency and incontinence at times. PAST MEDICAL HISTORY: As above. MEDICATIONS: Here are Tylenol with codeine, allopurinol, Norvasc, Lipitor, Dulcolax suppository p.r.n., carvedilol, Plavix, Benadryl, Colace, Pepcid, Neurontin, Robitussin p.r.n., lisinopril, Imodium, milk of magnesia, Glucophage, VESIcare, melatonin, multivitamin, Metamucil, Fleet enema p.r.n., Ambien p.r.n. ALLERGIES: ASPIRIN. SOCIAL HISTORY: No recent tobacco, alcohol or drugs. FAMILY HISTORY: Noncontributory. REVIEW OF SYSTEMS: A comprehensive 12-point review of systems conducted and is only positive for those signs and symptoms present in history of present illness. PHYSICAL EXAMINATION: VITAL SIGNS: Temperature of 98.4, blood pressure is 118/69, pulse is 85, respirations 19, and O2 sat 98%. GENERAL: The patient is well-developed, well-nourished, obese male who is in no acute distress. He is awake. He is alert. HEENT: Sclerae nonicteric. Oropharynx is clear. CARDIOVASCULAR: Regular rate and rhythm. LUNGS: Clear to auscultation bilaterally. ABDOMEN: Soft, nontender, nondistended. Obese habitus. EXTREMITIES: No clubbing, cyanosis or edema. RECTAL: Deferred. LABORATORY AND IMAGING DATA: WBC 6.7, hemoglobin 10.9 which is slightly low, platelet count is 129 which is slightly low. INR is normal. Creatinine is 1.4, which is mildly elevated. Liver enzymes are normal. Albumin is 3.5. IMPRESSION: 1. Vague abdominal pain with GERD and mild anemia, rule out peptic ulcer disease, gastritis, GERD, occult neoplasm, colitis, diverticular disease, hemorrhoids, etc. 2. History of hypertension. 3. History of hyperlipidemia. 4. History of obesity. 5. History of colon polyps. RECOMMENDATIONS: 1. Upper endoscopy and colonoscopy likely in a couple of days. 2. Bowel preparation tomorrow. 3. Monitor hemoglobin, transfuse as necessary. 4. Pepcid. 5. Colace. 6. Hold Plavix. Thank you, Dr. Hansel Miller for involving us in the care of your patient. If you have any further questions, please call us. [facility]# [id number]
--- NOTE | 2018-05-05 11:22 | General Progress Note ---
Subjective - Review of Systems Service Date: 05/05/18 Events since last encounter: patient awake alert c/o dizziness unstedy gait Objective - Results Result Diagrams: 05/04/18 06:00 05/04/18 06:00 Recent Labs: Laboratory Last Values WBC 6.7 Th/cmm (4.8-10.8) 05/04/18 06:00 RBC 3.47 Mil/cmm (3.80-5.80) L 05/04/18 06:00 Hgb 10.9 gm/dL (12-16) L 05/04/18 06:00 Hct 31.3 % (41.0-60) L 05/04/18 06:00 MCV 90.1 fl (80-99) 05/04/18 06:00 MCH 31.3 pg (27.0-31.0) H 05/04/18 06:00 MCHC Differential 34.7 pg (28.0-36.0) 05/04/18 06:00 RDW 14.2 % (11.5-20.0) 05/04/18 06:00 Plt Count 129 Th/cmm (150-400) L 05/04/18 06:00 MPV 10.2 fl 05/04/18 06:00 Neutrophils % 57.1 % (40.0-80.0) 05/04/18 06:00 Lymphocytes % 27.7 % (20.0-50.0) 05/04/18 06:00 Monocytes % 11.0 % (2.0-10.0) H 05/04/18 06:00 Eosinophils % 3.6 % (0.0-5.0) 05/04/18 06:00 Basophils % 0.6 % (0.0-2.0) 05/04/18 06:00 PT 11.2 SECONDS (9.5-11.5) 05/03/18 15:10 INR 1.08 (0.5-1.4) 05/03/18 15:10 Sodium 140 mEq/L (136-145) 05/04/18 06:00 Potassium 4.0 mEq/L (3.5-5.1) 05/04/18 06:00 Chloride 111 mEq/L (98-107) H 05/04/18 06:00 Carbon Dioxide 23.2 mEq/L (21.0-31.0) 05/04/18 06:00 Anion Gap 9.8 (7.0-16.0) 05/04/18 06:00 BUN 31 mg/dL (7-25) H 05/04/18 06:00 Creatinine 1.4 mg/dL (0.7-1.3) H 05/04/18 06:00 Est GFR ( Amer) > 60.0 ml/min (>90) 05/04/18 06:00 Est GFR (Non-Af Amer) 53.3 ml/min 05/04/18 06:00 BUN/Creatinine Ratio 22.1 05/04/18 06:00 Glucose 162 mg/dL (70-105) H 05/04/18 06:00 POC Glucose 145 MG/DL (70 - 105) H 05/05/18 06:57 Hemoglobin A1c % 7.6 % (4.0-6.0) H 05/03/18 15:10 Calcium 8.9 mg/dL (8.6-10.3) 05/04/18 06:00 Total Bilirubin 0.3 mg/dL (0.3-1.0) 05/04/18 06:00 AST 14 U/L (13-39) 05/04/18 06:00 ALT 17 U/L (7-52) 05/04/18 06:00 Alkaline Phosphatase 88 U/L (34-104) 05/04/18 06:00 Creatine Kinase 131 U/L (30-223) 05/03/18 15:10 Troponin I 0.01 ng/mL (0.01-0.05) 05/03/18 15:10 B-Natriuretic Peptide 116.0 pg/mL (5.0-100.0) H 05/03/18 15:10 Total Protein 6.5 gm/dL (6.0-8.3) 05/04/18 06:00 Albumin 3.5 gm/dL (4.2-5.5) L 05/04/18 06:00 Globulin 3.0 gm/dL 05/04/18 06:00 Albumin/Globulin Ratio 1.2 (1.0-1.8) 05/04/18 06:00 Triglycerides 157 mg/dL (<150) H 05/04/18 06:00 Cholesterol 93 mg/dL (<200) 05/04/18 06:00 LDL Cholesterol Direct 42 mg/dL (75-193) L 05/04/18 06:00 HDL Cholesterol 29 mg/dL (23-92) 05/04/18 06:00 TSH 6.87 uIU/ml (0.34-5.60) H 05/04/18 06:00 - Physical Exam Vitals and I&O: Vital Signs Temp 97.9 F 05/05/18 07:45 Pulse 78 05/05/18 10:14 Resp 18 05/05/18 07:45 BP 126/83 05/05/18 10:14 Pulse Ox 100 05/05/18 07:45 Intake & Output 05/04/18 05/05/18 05/05/18 18:59 06:59 18:59 Intake Total 1500 150 Output Total 700 Balance 800 150 Weight (lbs) 101.423 kg 101.151 kg Intake: Intake, IV Amount 1000 Sodium Chloride 0.45% 1, 1000 000 ml @ 50 mls/hr IV . Q20H [facility] Rx#:[id number] Oral 500 150 Output: Urine 700 Stool 0 Other: # Voids 3 # Bowel Movements 0 Weight Source Bedscale Bedscale Active Medications: Current Medications Acetaminophen (Tylenol) 650 mg PO Q4H PRN PRN Reason: Pain or Fever >101 Stop: 07/02/18 21:01 Acetaminophen/Codeine Phosphate (Tylenol W/Codeine #3) 1 tab PO Q8H PRN PRN Reason: FOR PAIN IF TYLENOL INEFFECTIV Stop: 07/02/18 21:01 Al Hydrox/Mg Hydrox/Simethicone (Maalox) 30 ml PO Q4HR PRN PRN Reason: Heartburn Stop: 07/03/18 20:44 Last Admin: 05/04/18 22:23 Dose: 30 ml Allopurinol (Zyloprim) 100 mg PO DAILY [facility] Stop: 07/03/18 08:59 Last Admin: 05/05/18 10:12 Dose: Not Given Amlodipine Besylate (Norvasc) 10 mg PO DAILY [facility] Stop: 07/03/18 08:59 Last Admin: 05/05/18 10:13 Dose: Not Given Atorvastatin Calcium (Lipitor) 40 mg PO HS [facility] Stop: 07/02/18 22:59 Last Admin: 06/30/18 22:23 Dose: 40 mg Bisacodyl (Dulcolax 10 Mg Supp) 10 mg RC DAILY PRN PRN Reason: IF MOM INEFFECTIVE Stop: 07/02/18 21:01 Bisacodyl (Dulcolax 5 Mg Ec Tab) 10 mg PO X1 ONE Stop: 05/05/18 16:01 Carvedilol (Coreg) 12.5 mg PO BID [facility] Stop: 07/03/18 08:59 Last Admin: 05/05/18 10:13 Dose: Not Given Clopidogrel Bisulfate (Plavix) 75 mg PO DAILY [facility] Stop: 07/03/18 08:59 Last Admin: 05/05/18 10:13 Dose: Not Given Diphenhydramine HCl (Benadryl) 25 mg PO Q8HR [facility] Stop: 07/03/18 04:59 Last Admin: 05/05/18 06:08 Dose: Not Given Docusate Sodium (Colace) 100 mg PO BID [facility] Stop: 07/03/18 08:59 Last Admin: 05/05/18 10:13 Dose: Not Given Gabapentin (Neurontin) 300 mg PO DAILY [facility] Stop: 07/03/18 08:59 Last Admin: 05/05/18 10:13 Dose: Not Given Guaifenesin/Dextromethorphan (Robitussin Dm) 10 ml PO Q6H PRN PRN Reason: Cough Stop: 07/02/18 21:01 Last Admin: 05/05/18 00:01 Dose: 10 ml Sodium Chloride (Nacl 0.45%) 1,000 mls @ 50 mls/hr IV .Q20H [facility] Stop: 07/02/18 22:14 Last Admin: 05/04/18 19:18 Dose: 50 mls/hr Insulin Aspart (Novolog Insulin Sliding Scale) 0 units SUBQ Q6HR [facility]; Protocol Stop: 07/03/18 00:00 Last Admin: 05/05/18 07:01 Dose: Not Given Lisinopril (Zestril) 5 mg PO DAILY [facility] Stop: 07/03/18 08:59 Last Admin: 05/05/18 10:14 Dose: Not Given Loperamide HCl (Imodium) 2 mg PO Q6H PRN PRN Reason: Diarrhea Stop: 07/02/18 21:01 Magnesium Hydroxide (Milk Of Magnesia) 30 ml PO HS PRN PRN Reason: Constipation Stop: 07/02/18 21:01 Metformin HCl (Glucophage) 500 mg PO BID [facility] Stop: 07/03/18 08:59 Last Admin: 05/05/18 10:14 Dose: Not Given Miscellaneous (Melatonin [Melatonin]) 10 mg PO HS [facility] Stop: 07/03/18 20:59 Miscellaneous (Solifenacin Succinate [Vesicare]) 5 mg PO DAILY [facility] Stop: 07/03/18 08:59 Multivitamins/Vitamin C (Theragran) 1 tab PO DAILY [facility] Stop: 07/03/18 08:59 Last Admin: 05/05/18 10:14 Dose: Not Given Pantoprazole Sodium (Protonix) 40 mg IVP DAILY [facility] Stop: 07/04/18 03:29 Last Admin: 05/05/18 10:15 Dose: Not Given Psyllium Hydrophilic Mucilloid (Metamucil) 1 pkt PO DAILY PRN PRN Reason: BOWEL MANAGEMENT Stop: 07/02/18 21:01 Sodium Phosphate (Fleet Enema) 135 ml RC Q48H PRN PRN Reason: IF DULCOLAX INEFFECTIVE Stop: 07/02/18 21:01 Zolpidem Tartrate (Ambien) 5 mg PO HS PRN PRN Reason: Insomnia Stop: 07/02/18 21:01 Last Admin: 05/05/18 00:01 Dose: 5 mg General: Alert, Cooperative HEENT: Atraumatic Neck: Supple Cardiovascular: Regular rate Lungs: Clear to auscultation Abdomen: Bowel sounds, Soft, Obese, no Tender Assessment/Plan - Problem List Patient Problems: All Active Problems Anemia (Acute) D64.9 CAD (coronary artery disease) (Acute) I25.10 Gastroesophageal reflux disease (Acute) K21.9 Gout (Acute) M10.9 HTN (hypertension) (Acute) I10 Hyperlipidemia (Acute) E78.5 Neuropathy (Acute) G62.9 Osteoarthritis (Acute) M19.90 Vertigo (Acute) R42 - Plan Plan: will monitor
[2018-05-05] MEDS: Sodium Chloride 0.45% 1,000 ML IV SCH (13:42)
[2018-05-05] MEDS: Atorvastatin Calcium 10 MG TAB PO SCH (20:26)
--- NOTE | 2018-05-05 22:29 | Consultation ---
DATE OF CONSULTATION: 05/05/2018 ATTENDING PHYSICIAN: Dr. June Miller. [address] [employer] REPORTER: Dr. Matt Webster. REASON FOR CONSULTATION: Electrolyte imbalance, fluid management and worsening kidney function. HISTORY OF PRESENT ILLNESS: This is a 68-year-old male with past medical history of chronic kidney disease, who came in because of occasional dizziness. Three days prior to admission, the patient developed occasional dizziness exacerbated by turning sideways. He has been using a walker to ambulate. He also had associated plantar pain involving both feet. A few hours prior to admission, he also experienced weakness along with this worsening dizziness. He was then brought to the Emergency Room. CT scan of the head revealed atherosclerotic vascular changes. Chest x-ray showed no acute disease. Abdominal ultrasound revealed gallbladder sludge, bilateral hydronephrosis with left calculi. He was admitted with BUN/creatinine of 35/1.8. He was started on gentle hydration with improvement of BUN/creatinine today to 31/1.4. He did not have any fever/chills, nausea and vomiting, diarrhea, hematuria. PAST MEDICAL HISTORY: 1. History of chronic kidney disease. This was diagnosed a year ago. As per patient, he had labs drawn last November, which confirmed that he has CKD stage 3. He does have a history of bilateral hydronephrosis possibly due to calculi. 2. Type 2 diabetes mellitus. 3. Essential hypertension. 4. BPH. 5. Gout. 6. Dyslipidemia. 7. 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 Diabetic neuropathy. CURRENT MEDICATIONS: He is currently on acetaminophen, allopurinol, amlodipine, APAP/codeine, atorvastatin, bisacodyl, carvedilol, clopidogrel, diphenhydramine, famotidine, Neurontin, aspart, lisinopril, loperamide, magnesium hydroxide, metformin, multivitamins, pantoprazole, and zolpidem. ALLERGIES: ALLERGIC TO ASPIRIN. SOCIAL HISTORY: No history of smoking. He used to drink alcoholic beverages during his younger years. He is a network cabler, but retired in 2013. FAMILY HISTORY: Significant for diabetes on both sides. REVIEW OF SYSTEMS: GENERAL: He did complain of generalized weakness, also some dizziness. Appetite had been fair. No fever, no chills. HEENT: No mention of headaches. CHEST AND CARDIOVASCULAR: No chest pain, palpitations, diaphoresis or cough. He does have a history of hypertension. ENDOCRINE: History of diabetes, lipid abnormalities. MUSCULOSKELETAL: Multiple joint arthralgias. GENITOURINARY: History of chronic kidney disease. Denied any dysuria, no hematuria. HEMATOLOGIC: He has mild anemia. NEUROPSYCH: He has diabetic neuropathy. PHYSICAL EXAMINATION: GENERAL: The patient is alert, verbal, comfortable. VITAL SIGNS: Blood pressure is 135/70, pulse 68, temperature 97.1 degrees. SKIN: Good turgor, warm, no rash, no jaundice appreciated. HEENT: Head normocephalic, atraumatic. Eyes: Extraocular muscles intact. Pupils equal, round, reactive to light and accommodates. Anicteric sclerae. [place] conjunctivae. Nose, midline nasal septum. Mouth, moist mucosa, adequate dentition. NECK: Supple, no adenopathy, no thyromegaly, no bruits. Trachea palpated in the midline. CHEST AND CARDIOVASCULAR: S1, S2. No rub, murmur, nor gallop appreciated. Point of maximal impulse fifth intercostal space, left midclavicular line. No abdominal or femoral bruits appreciated. LUNGS: Equal expansion, no use of accessory muscles. No supraclavicular retractions. Decreased breath sounds. Clear to auscultation without any wheeze. ABDOMEN: Globular, soft. Positive for bowel sounds. No bruits either diastolic or systolic. RECTAL: Lax sphincter tone. GENITOURINARY: Normal appearing male genitalia. MUSCULOSKELETAL: No effusions present in his joints with adequate range of motion. EXTREMITIES: No evidence of any edema, cyanosis nor clubbing with palpable femoral, popliteal and dorsalis pedis pulses. NEUROLOGIC: The patient is awake, verbal, motor is 5/5. Cranial nerves 3-12 intact. Sensory intact. LABORATORY DATA: Did reveal white count 6.7, hemoglobin 10.9, hematocrit 31.3, platelets 129, polys 57%. Sodium was 140, potassium 4, chloride 111, bicarbonate 23, BUN 31, creatinine 1.4, glucose 162, calcium 8.9, albumin 3.5, TSH 6.87. Hemoglobin A1c is 7.6%. IMPRESSION: 1. Chronic kidney disease stage 2. The patient's chronic kidney disease is secondary to diabetic neuropathy with longstanding history of diabetes and also significant symptoms suggestive of diabetic neuropathy. He may also have some underlying hypertensive nephrosclerosis. 2. Bilateral hydronephrosis, acute on chronic event secondary to bilateral renal calculi or possibly longstanding history of BPH suggestive of outlet obstruction. 3. Benign prostatic hypertrophy. 4. Occasional vertigo suggestive of benign paroxysmal positional vertigo, also consider the possibility of evolving CVA with history of CVA in the past. 5. Subclinical hypothyroidism. 6. Cholelithiasis. 7. Thrombocytopenia. 8. Type 2 diabetes mellitus with chronic kidney disease. 9. Essential hypertension with chronic kidney disease. 10. Benign prostatic hypertrophy. 11. History of gout. 12. Dyslipidemia. 13. Status post cerebrovascular accident with longstanding history of ataxia. 14. Diabetic neuropathy. PLAN: 1. Urinalysis. 2. Urine spot sodium. 3. Urine microalbumin to creatinine ratio. 4. CT scan of the abdomen and pelvis. 5. Electrolytes as well as uric acid. 6. Free T4 and total T3. Thank you, Dr. Miller, for this consult. We will follow the patient closely with you. [facility]# [id number]
[2018-05-06] MEDS: INSULIN ASPART SLIDING SCALE 100 UNITS/ML UNIT SUBQ SCH ×3 (06:41→18:18)
[2018-05-06 06:44] LABS: % BASOPHILS 0.9 % (0.0-2.0); % LYMPHOCYTES 22.2 % (20.0-50.0); % MONOCYTES 7.4 % (2.0-10.0); % NEUTROPHILS 66.5 % (40.0-80.0); ANION GAP 12.2 (7.0-16.0); BASOPHILE ABSOLUTE 0.1 Th/cumm (0-0.2); BUN - UREA NITROGEN 18 mg/dL (7-25); CARBON DIOXIDE 23.7 mEq/L (21.0-31.0); CHLORIDE 108 mEq/L (98-107); CREATININE - SERUM 1.1 mg/dL (0.7-1.3); EOSINOPHILE ABSOLUTE 0.3 Th/cmm (0.1-0.4); GFR AFRICAN-AMERICAN > 60.0 ml/min (>90); GFR NON AFRICAN-AMERICAN > 60.0 ml/min; GLUCOSE 135 mg/dL (70-105); HEMATOCRIT 34.8 % (41.0-60); HEMOGLOBIN 11.6 gm/dL (12-16); MAGNESIUM 1.7 mg/dL (1.9-2.7); MEAN CELL VOLUME 90.3 fl (80-99); MEAN CORPUSCULAR HEMOGLOBIN 30.1 pg (27.0-31.0); MEAN CORPUSCULAR HGB CONC 33.4 pg (28.0-36.0); MEAN PLATELET VOLUME 10.5 fl; MONOCYTE ABSOLUTE 0.7 Th/cmm (0.3-1.0); NEUTROPHILE ABSOLUTE 5.9 Th/cmm (1.8-8.0); PHOSPHOROUS 2.3 mg/dL (2.5-5.0); PLATELET COUNT 136 Th/cmm (150-400); POTASSIUM SERUM 3.9 mEq/L (3.5-5.1); RED BLOOD COUNT 3.86 Mil/cmm (3.80-5.80); SODIUM SERUM 140 mEq/L (136-145)
[2018-05-06 06:49] LABS: INR 1.07 (0.5-1.4); PROTHROMBIN TIME (TEST) 11.1 SECONDS (9.5-11.5)
--- NOTE | 2018-05-06 07:36 | Diagnostic Imaging Report ---
Exam: CT examination abdomen pelvis HISTORY: Hydronephrosis Total DLP equals 850 CTDI equals 16.4. Findings: Multiple contiguous thin section of the abdomen pelvis obtained from lower thorax to the pubic symphysis without administration of contrast material, no prior studies available comparison. The study demonstrates a atelectatic changes in lung bases bilaterally with small bilateral pleural effusions. Mild peribronchial thickening in the left base might be related to early pneumonic infiltrate. There is evidence for ill-defined the 3 cm cyst in the right lobe of liver. The gallbladder is intact. This pancreas and spleen are normal. There is evidence of for stomach distended with fluid. There is evidence for significant bilateral hydronephrosis with the small renal calculi bilaterally. The aorta is calcified. The adrenal glands are normal. Atherosclerotic vascular calcifications of the mesenteric vessels are noted. The urinary bladder is distended. There is a question of a 2 mm calculus in the right ureterovesicular junction. The urinary bladder wall thickening is noted. Prostate gland is enlarged. IMPRESSION: 1. 3 cm cyst right lobe liver. Significant bilateral hydronephrosis with renal calculi. Question of 2 mm calculus impacted in the right distal ureter at the ureterovesical junction. Bladder wall thickening.
[2018-05-06] MEDS: Multivitamin Tab PO SCH (08:52)
[2018-05-06] MEDS ORDERED: Lidocaine 2% Gel 5 mL TP ONE (12:50)
[2018-05-06] MEDS ORDERED: Propofol 10 mg/mL 20mL Vial **SURGERY USE ONLY IV ONE (12:50)
--- NOTE | 2018-05-06 14:56 | General Progress Note ---
Subjective - Review of Systems Service Date: 05/06/18 Subjective: alert, verbal, concerned about kidney fnc Objective - Results Result Diagrams: 05/06/18 06:06 05/06/18 06:06 Recent Labs: Laboratory Last Values WBC 9.0 Th/cmm (4.8-10.8) 05/06/18 06:06 RBC 3.86 Mil/cmm (3.80-5.80) 05/06/18 06:06 Hgb 11.6 gm/dL (12-16) L 05/06/18 06:06 Hct 34.8 % (41.0-60) L 05/06/18 06:06 MCV 90.3 fl (80-99) 05/06/18 06:06 MCH 30.1 pg (27.0-31.0) 05/06/18 06:06 MCHC Differential 33.4 pg (28.0-36.0) 05/06/18 06:06 RDW 14.0 % (11.5-20.0) 05/06/18 06:06 Plt Count 136 Th/cmm (150-400) L 05/06/18 06:06 MPV 10.5 fl 05/06/18 06:06 Neutrophils % 66.5 % (40.0-80.0) 05/06/18 06:06 Lymphocytes % 22.2 % (20.0-50.0) 05/06/18 06:06 Monocytes % 7.4 % (2.0-10.0) 05/06/18 06:06 Eosinophils % 3.0 % (0.0-5.0) 05/06/18 06:06 Basophils % 0.9 % (0.0-2.0) 05/06/18 06:06 PT 11.1 SECONDS (9.5-11.5) 05/06/18 06:06 INR 1.07 (0.5-1.4) 05/06/18 06:06 Sodium 140 mEq/L (136-145) 05/06/18 06:06 Potassium 3.9 mEq/L (3.5-5.1) 05/06/18 06:06 Chloride 108 mEq/L (98-107) H 05/06/18 06:06 Carbon Dioxide 23.7 mEq/L (21.0-31.0) 05/06/18 06:06 Anion Gap 12.2 (7.0-16.0) 05/06/18 06:06 BUN 18 mg/dL (7-25) 05/06/18 06:06 Creatinine 1.1 mg/dL (0.7-1.3) 05/06/18 06:06 Est GFR ( Amer) > 60.0 ml/min (>90) 05/06/18 06:06 Est GFR (Non-Af Amer) > 60.0 ml/min 05/06/18 06:06 BUN/Creatinine Ratio 16.4 05/06/18 06:06 Glucose 135 mg/dL (70-105) H 05/06/18 06:06 POC Glucose 105 MG/DL (70 - 105) 05/06/18 12:21 Hemoglobin A1c % 7.6 % (4.0-6.0) H 05/03/18 15:10 Uric Acid 6.0 mg/dL (4.4-7.6) 05/06/18 06:06 Calcium 9.0 mg/dL (8.6-10.3) 05/06/18 06:06 Phosphorus 2.3 mg/dL (2.5-5.0) L 05/06/18 06:06 Magnesium 1.7 mg/dL (1.9-2.7) L 05/06/18 06:06 Total Bilirubin 0.3 mg/dL (0.3-1.0) 05/04/18 06:00 AST 14 U/L (13-39) 05/04/18 06:00 ALT 17 U/L (7-52) 05/04/18 06:00 Alkaline Phosphatase 88 U/L (34-104) 05/04/18 06:00 Creatine Kinase 131 U/L (30-223) 05/03/18 15:10 Troponin I 0.01 ng/mL (0.01-0.05) 05/03/18 15:10 B-Natriuretic Peptide 116.0 pg/mL (5.0-100.0) H 05/03/18 15:10 Total Protein 6.5 gm/dL (6.0-8.3) 05/04/18 06:00 Albumin 3.5 gm/dL (4.2-5.5) L 05/04/18 06:00 Globulin 3.0 gm/dL 05/04/18 06:00 Albumin/Globulin Ratio 1.2 (1.0-1.8) 05/04/18 06:00 Triglycerides 157 mg/dL (<150) H 05/04/18 06:00 Cholesterol 93 mg/dL (<200) 05/04/18 06:00 LDL Cholesterol Direct 42 mg/dL (75-193) L 05/04/18 06:00 HDL Cholesterol 29 mg/dL (23-92) 05/04/18 06:00 TSH 6.87 uIU/ml (0.34-5.60) H 05/04/18 06:00 - Physical Exam Vitals and I&O: Vital Signs Temp 96.8 F 05/06/18 12:30 Pulse 80 05/06/18 12:30 Resp 18 05/06/18 12:30 BP 128/71 05/06/18 12:30 Pulse Ox 97 05/06/18 12:30 Intake & Output 05/05/18 05/06/18 05/06/18 18:59 06:59 18:59 Intake Total 1420 1500 Output Total 500 Balance 920 1500 Weight (lbs) 101.151 kg 101.151 kg Intake: Intake, IV Amount 920 Sodium Chloride 0.45% 1, 920 000 ml @ 50 mls/hr IV . Q20H [facility] Rx#:[id number] Oral 500 1500 Output: Urine 500 Other: # Voids 3 3 # Bowel Movements 2 6 Weight Source Bedscale Bedscale Active Medications: Current Medications Acetaminophen (Tylenol) 650 mg PO Q4H PRN PRN Reason: Pain or Fever >101 Stop: 07/02/18 21:01 Acetaminophen/Codeine Phosphate (Tylenol W/Codeine #3) 1 tab PO Q8H PRN PRN Reason: FOR PAIN IF TYLENOL INEFFECTIV Stop: 07/02/18 21:01 Al Hydrox/Mg Hydrox/Simethicone (Maalox) 30 ml PO Q4HR PRN PRN Reason: Heartburn Stop: 07/03/18 20:44 Last Admin: 05/04/18 22:23 Dose: 30 ml Allopurinol (Zyloprim) 100 mg PO DAILY [facility] Stop: 07/03/18 08:59 Last Admin: 05/06/18 08:51 Dose: Not Given Amlodipine Besylate (Norvasc) 10 mg PO DAILY [facility] Stop: 07/03/18 08:59 Last Admin: 05/06/18 08:51 Dose: Not Given Atorvastatin Calcium (Lipitor) 40 mg PO HS [facility] Stop: 07/02/18 22:59 Last Admin: 05/05/18 20:26 Dose: 40 mg Bisacodyl (Dulcolax 10 Mg Supp) 10 mg RC DAILY PRN PRN Reason: IF MOM INEFFECTIVE Stop: 07/02/18 21:01 Carvedilol (Coreg) 12.5 mg PO BID [facility] Stop: 07/03/18 08:59 Last Admin: 05/06/18 08:52 Dose: Not Given Clopidogrel Bisulfate (Plavix) 75 mg PO DAILY [facility] Stop: 07/03/18 08:59 Last Admin: 05/06/18 08:52 Dose: Not Given Diphenhydramine HCl (Benadryl) 25 mg PO Q8HR [facility] Stop: 07/03/18 04:59 Last Admin: 05/06/18 04:52 Dose: Not Given Docusate Sodium (Colace) 100 mg PO BID [facility] Stop: 07/03/18 08:59 Last Admin: 05/06/18 08:52 Dose: Not Given Gabapentin (Neurontin) 300 mg PO DAILY [facility] Stop: 07/03/18 08:59 Last Admin: 05/06/18 08:52 Dose: Not Given Guaifenesin/Dextromethorphan (Robitussin Dm) 10 ml PO Q6H PRN PRN Reason: Cough Stop: 07/02/18 21:01 Last Admin: 05/05/18 21:52 Dose: 10 ml Sodium Chloride (Nacl 0.45%) 1,000 mls @ 50 mls/hr IV .Q20H [facility] Stop: 07/02/18 22:14 Last Admin: 05/05/18 13:42 Dose: 50 mls/hr Insulin Aspart (Novolog Insulin Sliding Scale) 0 units SUBQ Q6HR [facility]; Protocol Stop: 07/03/18 00:00 Last Admin: 05/06/18 06:41 Dose: Not Given Lisinopril (Zestril) 5 mg PO DAILY [facility] Stop: 07/03/18 08:59 Last Admin: 05/06/18 08:52 Dose: Not Given Loperamide HCl (Imodium) 2 mg PO Q6H PRN PRN Reason: Diarrhea Stop: 07/02/18 21:01 Magnesium Hydroxide (Milk Of Magnesia) 30 ml PO HS PRN PRN Reason: Constipation Stop: 07/02/18 21:01 Meclizine HCl (Antivert) 12.5 mg PO Q8H PRN PRN Reason: Dizziness Stop: 07/04/18 15:54 Metformin HCl (Glucophage) 500 mg PO BID [facility] Stop: 07/03/18 08:59 Last Admin: 05/06/18 08:52 Dose: Not Given Miscellaneous (Solifenacin Succinate [Vesicare]) 5 mg PO DAILY [facility] Stop: 07/03/18 08:59 Multivitamins/Vitamin C (Theragran) 1 tab PO DAILY [facility] Stop: 07/03/18 08:59 Last Admin: 05/06/18 08:52 Dose: Not Given Pantoprazole Sodium (Protonix) 40 mg IVP DAILY [facility] Stop: 07/04/18 03:29 Last Admin: 05/06/18 11:10 Dose: Not Given Psyllium Hydrophilic Mucilloid (Metamucil) 1 pkt PO DAILY PRN PRN Reason: BOWEL MANAGEMENT Stop: 07/02/18 21:01 Sodium Phosphate (Fleet Enema) 135 ml RC Q48H PRN PRN Reason: IF DULCOLAX INEFFECTIVE Stop: 07/02/18 21:01 Zolpidem Tartrate (Ambien) 5 mg PO HS PRN PRN Reason: Insomnia Stop: 07/02/18 21:01 Last Admin: 05/05/18 00:01 Dose: 5 mg General: Alert, Cooperative, No acute distress HEENT: Atraumatic, Mucous membr. moist/pink Neck: Supple, +2 carotid pulse wo bruit Cardiovascular: Regular rate, Normal S1, Normal S2 Lungs: Clear to auscultation Abdomen: Bowel sounds, Soft, Obese, no Tender Extremities: no Edema Neurological: Normal tone, Sensation intact, Cranial nerves 3-12 NL Skin: no Rash Psych/Mental Status: Mood NL Assessment/Plan - Problem List Patient Problems: All Active Problems Anemia (Acute) D64.9 CAD (coronary artery disease) (Acute) I25.10 Gastroesophageal reflux disease (Acute) K21.9 Gout (Acute) M10.9 HTN (hypertension) (Acute) I10 Hyperlipidemia (Acute) E78.5 Neuropathy (Acute) G62.9 Osteoarthritis (Acute) M19.90 Vertigo (Acute) R42 - Assessment Assessment: CKD B/L [place] 2/2 renal calculi BPH w/ bladder distension Occ. Vertigo BPPV Cholelithiais Subclinical Hypothyroidism T2DM w/ CKD Ess Htn w/ CKD - Plan Plan: Lab - Result Diagrams 05/06/18 06:06 05/06/18 06:06 Current Medications Acetaminophen (Tylenol) 650 mg PO Q4H PRN PRN Reason: Pain or Fever >101 Stop: 07/02/18 21:01 Acetaminophen/Codeine Phosphate (Tylenol W/Codeine #3) 1 tab PO Q8H PRN PRN Reason: FOR PAIN IF TYLENOL INEFFECTIV Stop: 07/02/18 21:01 Al Hydrox/Mg Hydrox/Simethicone (Maalox) 30 ml PO Q4HR PRN PRN Reason: Heartburn Stop: 07/03/18 20:44 Last Admin: 05/04/18 22:23 Dose: 30 ml Allopurinol (Zyloprim) 100 mg PO DAILY [facility] Stop: 07/03/18 08:59 Last Admin: 05/06/18 08:51 Dose: Not Given Amlodipine Besylate (Norvasc) 10 mg PO DAILY [facility] Stop: 07/03/18 08:59 Last Admin: 05/06/18 08:51 Dose: Not Given Atorvastatin Calcium (Lipitor) 40 mg PO HS [facility] Stop: 07/02/18 22:59 Last Admin: 05/05/18 20:26 Dose: 40 mg Bisacodyl (Dulcolax 10 Mg Supp) 10 mg RC DAILY PRN PRN Reason: IF MOM INEFFECTIVE Stop: 07/02/18 21:01 Carvedilol (Coreg) 12.5 mg PO BID [facility] Stop: 07/03/18 08:59 Last Admin: 05/06/18 08:52 Dose: Not Given Clopidogrel Bisulfate (Plavix) 75 mg PO DAILY [facility] Stop: 07/03/18 08:59 Last Admin: 05/06/18 08:52 Dose: Not Given Diphenhydramine HCl (Benadryl) 25 mg PO Q8HR [facility] Stop: 07/03/18 04:59 Last Admin: 05/06/18 04:52 Dose: Not Given Docusate Sodium (Colace) 100 mg PO BID [facility] Stop: 07/03/18 08:59 Last Admin: 05/06/18 08:52 Dose: Not Given Gabapentin (Neurontin) 300 mg PO DAILY [facility] Stop: 07/03/18 08:59 Last Admin: 05/06/18 08:52 Dose: Not Given Guaifenesin/Dextromethorphan (Robitussin Dm) 10 ml PO Q6H PRN PRN Reason: Cough Stop: 07/02/18 21:01 Last Admin: 05/05/18 21:52 Dose: 10 ml Sodium Chloride (Nacl 0.45%) 1,000 mls @ 50 mls/hr IV .Q20H [facility] Stop: 07/02/18 22:14 Last Admin: 05/05/18 13:42 Dose: 50 mls/hr Insulin Aspart (Novolog Insulin Sliding Scale) 0 units SUBQ Q6HR [facility]; Protocol Stop: 07/03/18 00:00 Last Admin: 05/06/18 06:41 Dose: Not Given Lisinopril (Zestril) 5 mg PO DAILY [facility] Stop: 07/03/18 08:59 Last Admin: 05/06/18 08:52 Dose: Not Given Loperamide HCl (Imodium) 2 mg PO Q6H PRN PRN Reason: Diarrhea Stop: 07/02/18 21:01 Magnesium Hydroxide (Milk Of Magnesia) 30 ml PO HS PRN PRN Reason: Constipation Stop: 07/02/18 21:01 Meclizine HCl (Antivert) 12.5 mg PO Q8H PRN PRN Reason: Dizziness Stop: 07/04/18 15:54 Metformin HCl (Glucophage) 500 mg PO BID [facility] Stop: 07/03/18 08:59 Last Admin: 05/06/18 08:52 Dose: Not Given Miscellaneous (Solifenacin Succinate [Vesicare]) 5 mg PO DAILY [facility] Stop: 07/03/18 08:59 Multivitamins/Vitamin C (Theragran) 1 tab PO DAILY [facility] Stop: 07/03/18 08:59 Last Admin: 05/06/18 08:52 Dose: Not Given Pantoprazole Sodium (Protonix) 40 mg IVP DAILY [facility] Stop: 07/04/18 03:29 Last Admin: 05/06/18 11:10 Dose: Not Given Psyllium Hydrophilic Mucilloid (Metamucil) 1 pkt PO DAILY PRN PRN Reason: BOWEL MANAGEMENT Stop: 07/02/18 21:01 Sodium Phosphate (Fleet Enema) 135 ml RC Q48H PRN PRN Reason: IF DULCOLAX INEFFECTIVE Stop: 07/02/18 21:01 Zolpidem Tartrate (Ambien) 5 mg PO HS PRN PRN Reason: Insomnia Stop: 07/02/18 21:01 Last Admin: 05/05/18 00:01 Dose: 5 mg Lab - Result Diagrams 05/06/18 06:06 05/06/18 06:06 Kidney fnc improved awaiting Urology input f/u electrolytes
[2018-05-06] MEDS ORDERED: Potassium Phosphate 20 MMOLE in Sodium Chloride 0.9% 250 ML IV ONE (16:00)
--- NOTE | 2018-05-06 16:19 | General Progress Note ---
Subjective - Review of Systems Events since last encounter: awake in no distress Objective - Results Result Diagrams: 05/06/18 06:06 05/06/18 06:06 Recent Labs: Laboratory Last Values WBC 9.0 Th/cmm (4.8-10.8) 05/06/18 06:06 RBC 3.86 Mil/cmm (3.80-5.80) 05/06/18 06:06 Hgb 11.6 gm/dL (12-16) L 05/06/18 06:06 Hct 34.8 % (41.0-60) L 05/06/18 06:06 MCV 90.3 fl (80-99) 05/06/18 06:06 MCH 30.1 pg (27.0-31.0) 05/06/18 06:06 MCHC Differential 33.4 pg (28.0-36.0) 05/06/18 06:06 RDW 14.0 % (11.5-20.0) 05/06/18 06:06 Plt Count 136 Th/cmm (150-400) L 05/06/18 06:06 MPV 10.5 fl 05/06/18 06:06 Neutrophils % 66.5 % (40.0-80.0) 05/06/18 06:06 Lymphocytes % 22.2 % (20.0-50.0) 05/06/18 06:06 Monocytes % 7.4 % (2.0-10.0) 05/06/18 06:06 Eosinophils % 3.0 % (0.0-5.0) 05/06/18 06:06 Basophils % 0.9 % (0.0-2.0) 05/06/18 06:06 PT 11.1 SECONDS (9.5-11.5) 05/06/18 06:06 INR 1.07 (0.5-1.4) 05/06/18 06:06 Sodium 140 mEq/L (136-145) 05/06/18 06:06 Potassium 3.9 mEq/L (3.5-5.1) 05/06/18 06:06 Chloride 108 mEq/L (98-107) H 05/06/18 06:06 Carbon Dioxide 23.7 mEq/L (21.0-31.0) 05/06/18 06:06 Anion Gap 12.2 (7.0-16.0) 05/06/18 06:06 BUN 18 mg/dL (7-25) 05/06/18 06:06 Creatinine 1.1 mg/dL (0.7-1.3) 05/06/18 06:06 Est GFR ( Amer) > 60.0 ml/min (>90) 05/06/18 06:06 Est GFR (Non-Af Amer) > 60.0 ml/min 05/06/18 06:06 BUN/Creatinine Ratio 16.4 05/06/18 06:06 Glucose 135 mg/dL (70-105) H 05/06/18 06:06 POC Glucose 105 MG/DL (70 - 105) 05/06/18 12:21 Hemoglobin A1c % 7.6 % (4.0-6.0) H 05/03/18 15:10 Uric Acid 6.0 mg/dL (4.4-7.6) 05/06/18 06:06 Calcium 9.0 mg/dL (8.6-10.3) 05/06/18 06:06 Phosphorus 2.3 mg/dL (2.5-5.0) L 05/06/18 06:06 Magnesium 1.7 mg/dL (1.9-2.7) L 05/06/18 06:06 Total Bilirubin 0.3 mg/dL (0.3-1.0) 05/04/18 06:00 AST 14 U/L (13-39) 05/04/18 06:00 ALT 17 U/L (7-52) 05/04/18 06:00 Alkaline Phosphatase 88 U/L (34-104) 05/04/18 06:00 Creatine Kinase 131 U/L (30-223) 05/03/18 15:10 Troponin I 0.01 ng/mL (0.01-0.05) 05/03/18 15:10 B-Natriuretic Peptide 116.0 pg/mL (5.0-100.0) H 05/03/18 15:10 Total Protein 6.5 gm/dL (6.0-8.3) 05/04/18 06:00 Albumin 3.5 gm/dL (4.2-5.5) L 05/04/18 06:00 Globulin 3.0 gm/dL 05/04/18 06:00 Albumin/Globulin Ratio 1.2 (1.0-1.8) 05/04/18 06:00 Triglycerides 157 mg/dL (<150) H 05/04/18 06:00 Cholesterol 93 mg/dL (<200) 05/04/18 06:00 LDL Cholesterol Direct 42 mg/dL (75-193) L 05/04/18 06:00 HDL Cholesterol 29 mg/dL (23-92) 05/04/18 06:00 TSH 6.87 uIU/ml (0.34-5.60) H 05/04/18 06:00 - Physical Exam Vitals and I&O: Vital Signs Temp 97.3 F 05/06/18 15:30 Pulse 72 05/06/18 15:30 Resp 18 05/06/18 15:30 BP 146/72 05/06/18 15:30 Pulse Ox 98 05/06/18 15:30 Intake & Output 05/05/18 05/06/18 05/06/18 18:59 06:59 18:59 Intake Total 1420 1500 Output Total 500 Balance 920 1500 Weight (lbs) 101.151 kg 101.151 kg Intake: Intake, IV Amount 920 Sodium Chloride 0.45% 1, 920 000 ml @ 50 mls/hr IV . Q20H [facility] Rx#:[id number] Oral 500 1500 Output: Urine 500 Other: # Voids 3 3 # Bowel Movements 2 6 Weight Source Bedscale Bedscale Active Medications: Current Medications Acetaminophen (Tylenol) 650 mg PO Q4H PRN PRN Reason: Pain or Fever >101 Stop: 07/02/18 21:01 Acetaminophen/Codeine Phosphate (Tylenol W/Codeine #3) 1 tab PO Q8H PRN PRN Reason: FOR PAIN IF TYLENOL INEFFECTIV Stop: 07/02/18 21:01 Al Hydrox/Mg Hydrox/Simethicone (Maalox) 30 ml PO Q4HR PRN PRN Reason: Heartburn Stop: 07/03/18 20:44 Last Admin: 05/04/18 22:23 Dose: 30 ml Allopurinol (Zyloprim) 100 mg PO DAILY [facility] Stop: 07/03/18 08:59 Last Admin: 05/06/18 08:51 Dose: Not Given Amlodipine Besylate (Norvasc) 10 mg PO DAILY [facility] Stop: 07/03/18 08:59 Last Admin: 05/06/18 08:51 Dose: Not Given Atorvastatin Calcium (Lipitor) 40 mg PO HS [facility] Stop: 07/02/18 22:59 Last Admin: 05/05/18 20:26 Dose: 40 mg Bisacodyl (Dulcolax 10 Mg Supp) 10 mg RC DAILY PRN PRN Reason: IF MOM INEFFECTIVE Stop: 07/02/18 21:01 Carvedilol (Coreg) 12.5 mg PO BID [facility] Stop: 07/03/18 08:59 Last Admin: 05/06/18 08:52 Dose: Not Given Clopidogrel Bisulfate (Plavix) 75 mg PO DAILY [facility] Stop: 07/03/18 08:59 Last Admin: 05/06/18 08:52 Dose: Not Given Diphenhydramine HCl (Benadryl) 25 mg PO Q8HR [facility] Stop: 07/03/18 04:59 Last Admin: 05/06/18 04:52 Dose: Not Given Docusate Sodium (Colace) 100 mg PO BID [facility] Stop: 07/03/18 08:59 Last Admin: 05/06/18 08:52 Dose: Not Given Gabapentin (Neurontin) 300 mg PO DAILY [facility] Stop: 07/03/18 08:59 Last Admin: 05/06/18 08:52 Dose: Not Given Guaifenesin/Dextromethorphan (Robitussin Dm) 10 ml PO Q6H PRN PRN Reason: Cough Stop: 07/02/18 21:01 Last Admin: 05/05/18 21:52 Dose: 10 ml Sodium Chloride (Nacl 0.45%) 1,000 mls @ 50 mls/hr IV .Q20H [facility] Stop: 07/02/18 22:14 Last Admin: 05/05/18 13:42 Dose: 50 mls/hr Potassium Phosphate 20 mmole/ (Sodium Chloride) 256.6667 mls @ 42.5 mls/hr IV X1 ONE Stop: 05/06/18 22:02 Magnesium Sulfate 2 gm/ Sodium (Chloride) 54 mls @ 25 mls/hr IV X1 ONE Stop: 05/06/18 18:09 Insulin Aspart (Novolog Insulin Sliding Scale) 0 units SUBQ Q6HR [facility]; Protocol Stop: 07/03/18 00:00 Last Admin: 05/06/18 06:41 Dose: Not Given Lisinopril (Zestril) 5 mg PO DAILY [facility] Stop: 07/03/18 08:59 Last Admin: 05/06/18 08:52 Dose: Not Given Loperamide HCl (Imodium) 2 mg PO Q6H PRN PRN Reason: Diarrhea Stop: 07/02/18 21:01 Magnesium Hydroxide (Milk Of Magnesia) 30 ml PO HS PRN PRN Reason: Constipation Stop: 07/02/18 21:01 Meclizine HCl (Antivert) 12.5 mg PO Q8H PRN PRN Reason: Dizziness Stop: 07/04/18 15:54 Metformin HCl (Glucophage) 500 mg PO BID [facility] Stop: 07/03/18 08:59 Last Admin: 05/06/18 08:52 Dose: Not Given Miscellaneous (Solifenacin Succinate [Vesicare]) 5 mg PO DAILY [facility] Stop: 07/03/18 08:59 Multivitamins/Vitamin C (Theragran) 1 tab PO DAILY [facility] Stop: 07/03/18 08:59 Last Admin: 05/06/18 08:52 Dose: Not Given Pantoprazole Sodium (Protonix) 40 mg IVP DAILY [facility] Stop: 07/04/18 03:29 Last Admin: 05/06/18 11:10 Dose: Not Given Psyllium Hydrophilic Mucilloid (Metamucil) 1 pkt PO DAILY PRN PRN Reason: BOWEL MANAGEMENT Stop: 07/02/18 21:01 Sodium Phosphate (Fleet Enema) 135 ml RC Q48H PRN PRN Reason: IF DULCOLAX INEFFECTIVE Stop: 07/02/18 21:01 Zolpidem Tartrate (Ambien) 5 mg PO HS PRN PRN Reason: Insomnia Stop: 07/02/18 21:01 Last Admin: 05/05/18 00:01 Dose: 5 mg General: Alert, Cooperative, No acute distress HEENT: Atraumatic, Mucous membr. moist/pink Neck: Supple, +2 carotid pulse wo bruit Cardiovascular: Regular rate, Normal S1, Normal S2 Lungs: Clear to auscultation Abdomen: Bowel sounds, Soft, Obese, no Tender Extremities: no Edema Neurological: Normal tone, Sensation intact, Cranial nerves 3-12 NL Skin: no Rash Psych/Mental Status: Mood NL Assessment/Plan - Problem List Patient Problems: All Active Problems Anemia (Acute) D64.9 CAD (coronary artery disease) (Acute) I25.10 Gastroesophageal reflux disease (Acute) K21.9 Gout (Acute) M10.9 HTN (hypertension) (Acute) I10 Hyperlipidemia (Acute) E78.5 Neuropathy (Acute) G62.9 Osteoarthritis (Acute) M19.90 Vertigo (Acute) R42 - Plan Plan: will monitor
[2018-05-06] MEDS: APAP/Codeine 300 mg/30 mg Tab PO PRN (16:34)
--- NOTE | 2018-05-06 18:12 | Operative Report ---
DATE OF SURGERY: 05/06/2018 INPATIENT GASTROINTESTINAL PROCEDURE PROCEDURE: EGD with biopsy, colonoscopy snare polypectomy. REFERRING PHYSICIAN: Dr. Miller. REASON FOR PROCEDURE: Abdominal pain. CONSENT: Risks, benefits, alternatives, nature, indication, possible outcomes were discussed. Mentioned bleeding, infection, perforation, , disability, cardiopulmonary distress and arrest, missed lesion and cancers, need for surgery. The patient expressed understanding and provided informed consent. PREOPERATIVE DIAGNOSIS: Abdominal pain. POSTOPERATIVE DIAGNOSES: Esophagitis, gastritis, colon polyps. MEDICATIONS: MAC provided by anesthesiologist. DESCRIPTION OF PROCEDURE: The patient was placed in left side. Upper endoscope advanced from mouth to second portion of the duodenum. Scope was brought back in stomach. Retroflexion view of fundus, cardia, lesser curvature. Scope was straightened. Biopsy taken. Scope was removed. COMPLICATIONS: None. FINDINGS: 1. GE junction at 40 cm with mild distal esophagitis, status post biopsy. 2. Gastritis, status post biopsy. 3. Normal duodenum. PROCEDURE: Colonoscopy DESCRIPTION OF PROCEDURE: The patient placed on left side, rectal exam was performed and normal. Pediatric colonoscope was advanced from the anus to the cecum confirmed by appendiceal orifice and ileocecal valve. Scope slowly withdrawn, examining the mucosa along the way. Polyps seen, removed by snare polypectomy. Once the scope reached the rectum, retroflexion was performed, scope was straightened, and removed along with air. COMPLICATIONS: None. FINDINGS: 1. A 10 mm rectal polyp removed by snare polypectomy. 2. A 6 mm cecal polyp removed by snare polypectomy. RECOMMENDATIONS: 1. Repeat colonoscopy in 3 years. 2. High fiber diet. 3. Follow up on biopsy. 4. Provide the patient with proton pump inhibitor. Thank you for allowing me to participate. Please call me if any questions. JOB# [id number]
--- NOTE | 2018-05-06 20:15 | Consultation ---
DATE OF CONSULTATION: 05/06/2018 UROLOGY CONSULT Seen for urinary retention and hydronephrosis. The patient is a 68-year-old who came into the Emergency Room for dizziness or vertigo going on for several months. There was also some weakness along with it. He is a resident of a rehab unit for the last 2 years to 3 years for the same problem. He is disabled from this condition and unable to walk without the fear of falling. He did not complain about the urinary problem in any specific way, but admitted to some frequency, slow stream and urgency. He admitted to taking Flomax for a while, which improved the flow and some incontinence issues, he had prior to that. No prostate operations. No knowledge of kidney stones, no urologic surgery. No family history of stone disease or prostate cancer. REVIEW OF SYSTEMS: Dizziness and weakness. No fever or weight loss. No headache or seizures. No chest pain, coughing or shortness of breath. Denies sore throat or blurry vision. No abdominal pain, vomiting or diarrhea. He had skin cancers on the face, no current issues except history of gout. MEDICAL HISTORY: Hypertension and diabetes for more than 3 years. He has arthritis and gout as well. History of hyperlipidemia. No stroke or [place], but there is a history of coronary artery disease. He also has gastroesophageal reflux. He has diabetes related neuropathy. PAST SURGICAL HISTORY: Tonsils, skin cancer excisions and removal of mole from the back area. ALLERGIES: ASPIRIN. HOME MEDICATIONS: Tylenol, Benadryl, allopurinol, Norvasc, Lipitor, Vicodin, Dulcolax, Coreg, Plavix, Pepcid, Neurontin, lisinopril, magnesium hydroxide, melatonin, metformin, VESIcare, Ambien. PHYSICAL EXAMINATION: GENERAL: On exam, he is moderately obese with a BMI of 37.1. VITAL SIGNS: Temperature 97.3, heart rate 72, blood pressure 146/72. HEAD AND NECK: Normocephalic. Trachea central. Pupils equal and reactive. No jaundice. Thyroid and lymph nodes not palpable. Carotid bruit absent. CHEST: Symmetrical. LUNGS: Clear. No rales or rhonchi. HEART: Sounds normal in sinus rhythm, no murmur. ABDOMEN: Morbidly obese, soft, nontender, no organomegaly, mass, or hernia. GENITALIA: Normal male. No scrotal masses. RECTAL: Sphincter tone normal. Prostate is high, difficult to reach and cannot examine adequately. EXTREMITIES: No edema or lymphadenopathy. NEUROLOGIC: Nonfocal. However, he does have significant vertigo problems. There is a diagnosis of stroke resulting in ataxia by one of the consultants. However, there is no other explanation or details provided about this problem. LABORATORY DATA: White count normal at 9.0, hemoglobin 11.6, platelets normal. PT and PTT are normal. Electrolytes normal. BUN 18, creatinine 1.1. Chest x-ray unremarkable. Head CT, mild atrophy, no acute changes. Abdominal ultrasound, gallbladder sludge, bilateral hydronephrosis, left renal calculi and CT scan of abdomen and pelvis shows bilateral hydronephrosis and small bilateral renal calculi. No size or number is mentioned. Bladder is distended, 2 mm stone in the right UVJ area. Bladder is thickened. Prostate is enlarged. GI is seeing him as well as Nephrology for fluid management. He has upper GI planned in the next few days. IMPRESSION: 1. Bilateral hydronephrosis, small bilateral calculi, probably uric acid related. 2. Urinary retention with bilateral hydronephrosis, most likely being a sequelae of outlet obstruction. Javier was placed today and 650 mL was drained verifying the presence of bladder outlet obstruction. 3. Obesity. 4. Diabetes. 5. Hypertension. 6. Gout. 7. Possible history of stroke and ataxia. 8. History of coronary artery disease. 9. Peripheral neuropathy and gastroesophageal reflux disease. Recommend adequate hydration. Javier catheter management with irrigation since there is blood in the Javier now after the bladder was decompressed. Subsequently, will need cystoscopy and possible TURP if the diagnosis is confirmed of bladder outlet obstruction from the prostate. It is conceivable he has an element of diabetic neurogenic bladder and this could have been compounded by VESIcare. This could be evaluated with a cystoscopy as well. His Plavix is currently on hold and we can obtain medical clearance for him to get this procedure over the next few days once the Plavix wears off. The procedure was explained to the patient who understands it and is in agreement to proceed. Pros, cons and complications and options were explained to him. JOB# [id number]
[2018-05-06] MEDS: Atorvastatin Calcium 10 MG TAB PO SCH (20:45)
[2018-05-07] MEDS: INSULIN ASPART SLIDING SCALE 100 UNITS/ML UNIT SUBQ SCH ×4 (00:07→18:22)
[2018-05-07 06:35] LABS: ANION GAP 8.8 (7.0-16.0); BUN - UREA NITROGEN 16 mg/dL (7-25); CALCIUM SERUM 8.9 mg/dL (8.6-10.3); CHLORIDE 107 mEq/L (98-107); CREATININE - SERUM 1.2 mg/dL (0.7-1.3); GFR AFRICAN-AMERICAN > 60.0 ml/min (>90); GFR NON AFRICAN-AMERICAN > 60.0 ml/min; GLUCOSE 154 mg/dL (70-105); PHOSPHOROUS 3.7 mg/dL (2.5-5.0); POTASSIUM SERUM 3.8 mEq/L (3.5-5.1); SODIUM SERUM 139 mEq/L (136-145)
--- NOTE | 2018-05-07 07:40 | GI Progress Note ---
Subjective - Review of Systems Subjective: NO EVENTS Objective - Results Result Diagrams: 05/06/18 06:06 05/07/18 05:25 Recent Labs: Laboratory Last Values WBC 9.0 Th/cmm (4.8-10.8) 05/06/18 06:06 RBC 3.86 Mil/cmm (3.80-5.80) 05/06/18 06:06 Hgb 11.6 gm/dL (12-16) L 05/06/18 06:06 Hct 34.8 % (41.0-60) L 05/06/18 06:06 MCV 90.3 fl (80-99) 05/06/18 06:06 MCH 30.1 pg (27.0-31.0) 05/06/18 06:06 MCHC Differential 33.4 pg (28.0-36.0) 05/06/18 06:06 RDW 14.0 % (11.5-20.0) 05/06/18 06:06 Plt Count 136 Th/cmm (150-400) L 05/06/18 06:06 MPV 10.5 fl 05/06/18 06:06 Neutrophils % 66.5 % (40.0-80.0) 05/06/18 06:06 Lymphocytes % 22.2 % (20.0-50.0) 05/06/18 06:06 Monocytes % 7.4 % (2.0-10.0) 05/06/18 06:06 Eosinophils % 3.0 % (0.0-5.0) 05/06/18 06:06 Basophils % 0.9 % (0.0-2.0) 05/06/18 06:06 PT 11.1 SECONDS (9.5-11.5) 05/06/18 06:06 INR 1.07 (0.5-1.4) 05/06/18 06:06 Sodium 139 mEq/L (136-145) 05/07/18 05:25 Potassium 3.8 mEq/L (3.5-5.1) 05/07/18 05:25 Chloride 107 mEq/L (98-107) 05/07/18 05:25 Carbon Dioxide 27.0 mEq/L (21.0-31.0) 05/07/18 05:25 Anion Gap 8.8 (7.0-16.0) 05/07/18 05:25 BUN 16 mg/dL (7-25) 05/07/18 05:25 Creatinine 1.2 mg/dL (0.7-1.3) 05/07/18 05:25 Est GFR ( Amer) > 60.0 ml/min (>90) 05/07/18 05:25 Est GFR (Non-Af Amer) > 60.0 ml/min 05/07/18 05:25 BUN/Creatinine Ratio 13.3 05/07/18 05:25 Glucose 154 mg/dL (70-105) H 05/07/18 05:25 POC Glucose 205 MG/DL (70 - 105) H 05/06/18 23:54 Hemoglobin A1c % 7.6 % (4.0-6.0) H 05/03/18 15:10 Uric Acid 6.0 mg/dL (4.4-7.6) 05/06/18 06:06 Calcium 8.9 mg/dL (8.6-10.3) 05/07/18 05:25 Phosphorus 3.7 mg/dL (2.5-5.0) 05/07/18 05:25 Magnesium 2.0 mg/dL (1.9-2.7) 05/07/18 05:25 Total Bilirubin 0.3 mg/dL (0.3-1.0) 05/04/18 06:00 AST 14 U/L (13-39) 05/04/18 06:00 ALT 17 U/L (7-52) 05/04/18 06:00 Alkaline Phosphatase 88 U/L (34-104) 05/04/18 06:00 Creatine Kinase 131 U/L (30-223) 05/03/18 15:10 Troponin I 0.01 ng/mL (0.01-0.05) 05/03/18 15:10 B-Natriuretic Peptide 116.0 pg/mL (5.0-100.0) H 05/03/18 15:10 Total Protein 6.5 gm/dL (6.0-8.3) 05/04/18 06:00 Albumin 3.5 gm/dL (4.2-5.5) L 05/04/18 06:00 Globulin 3.0 gm/dL 05/04/18 06:00 Albumin/Globulin Ratio 1.2 (1.0-1.8) 05/04/18 06:00 Triglycerides 157 mg/dL (<150) H 05/04/18 06:00 Cholesterol 93 mg/dL (<200) 05/04/18 06:00 LDL Cholesterol Direct 42 mg/dL (75-193) L 05/04/18 06:00 HDL Cholesterol 29 mg/dL (23-92) 05/04/18 06:00 TSH 6.87 uIU/ml (0.34-5.60) H 05/04/18 06:00 - Physical Exam Vitals and I&O: Vital Signs Temp 97.8 F 05/07/18 04:00 Pulse 59 05/07/18 04:00 Resp 19 05/07/18 04:00 BP 136/79 05/07/18 04:00 Pulse Ox 96 05/07/18 04:00 Intake & Output 05/06/18 05/07/18 05/07/18 18:59 06:59 18:59 Intake Total 1000 200 Output Total 2200 300 Balance -1200 -100 Weight (lbs) 101.151 kg 101.151 kg Intake: Oral 1000 200 Output: Urine 2200 300 Other: # Voids 1 # Bowel Movements 0 1 Weight Source Bedscale Bedscale Active Medications: Current Medications Acetaminophen (Tylenol) 650 mg PO Q4H PRN PRN Reason: Pain or Fever >101 Stop: 07/02/18 21:01 Last Admin: 05/06/18 21:10 Dose: 650 mg Acetaminophen/Codeine Phosphate (Tylenol W/Codeine #3) 1 tab PO Q8H PRN PRN Reason: FOR PAIN IF TYLENOL INEFFECTIV Stop: 07/02/18 21:01 Last Admin: 05/06/18 16:34 Dose: 1 tab Al Hydrox/Mg Hydrox/Simethicone (Maalox) 30 ml PO Q4HR PRN PRN Reason: Heartburn Stop: 07/03/18 20:44 Last Admin: 05/04/18 22:23 Dose: 30 ml Allopurinol (Zyloprim) 100 mg PO DAILY [facility] Stop: 07/03/18 08:59 Last Admin: 05/06/18 08:51 Dose: Not Given Amlodipine Besylate (Norvasc) 10 mg PO DAILY [facility] Stop: 07/03/18 08:59 Last Admin: 05/06/18 08:51 Dose: Not Given Atorvastatin Calcium (Lipitor) 40 mg PO HS [facility] Stop: 07/02/18 22:59 Last Admin: 05/06/18 20:45 Dose: 40 mg Bisacodyl (Dulcolax 10 Mg Supp) 10 mg RC DAILY PRN PRN Reason: IF MOM INEFFECTIVE Stop: 07/02/18 21:01 Carvedilol (Coreg) 12.5 mg PO BID [facility] Stop: 07/03/18 08:59 Last Admin: 05/06/18 16:34 Dose: 12.5 mg Clopidogrel Bisulfate (Plavix) 75 mg PO DAILY [facility] Stop: 07/03/18 08:59 Last Admin: 05/06/18 08:52 Dose: Not Given Diphenhydramine HCl (Benadryl) 25 mg PO Q8HR [facility] Stop: 07/03/18 04:59 Last Admin: 05/07/18 05:00 Dose: 25 mg Docusate Sodium (Colace) 100 mg PO BID [facility] Stop: 07/03/18 08:59 Last Admin: 05/06/18 16:34 Dose: 100 mg Gabapentin (Neurontin) 300 mg PO DAILY [facility] Stop: 07/03/18 08:59 Last Admin: 05/06/18 08:52 Dose: Not Given Guaifenesin/Dextromethorphan (Robitussin Dm) 10 ml PO Q6H PRN PRN Reason: Cough Stop: 07/02/18 21:01 Last Admin: 05/05/18 21:52 Dose: 10 ml Sodium Chloride (Nacl 0.45%) 1,000 mls @ 50 mls/hr IV .Q20H [facility] Stop: 07/02/18 22:14 Last Admin: 05/05/18 13:42 Dose: 50 mls/hr Insulin Aspart (Novolog Insulin Sliding Scale) 0 units SUBQ Q6HR [facility]; Protocol Stop: 07/03/18 00:00 Last Admin: 05/07/18 06:08 Dose: Not Given Lisinopril (Zestril) 5 mg PO DAILY [facility] Stop: 07/03/18 08:59 Last Admin: 05/06/18 08:52 Dose: Not Given Loperamide HCl (Imodium) 2 mg PO Q6H PRN PRN Reason: Diarrhea Stop: 07/02/18 21:01 Magnesium Hydroxide (Milk Of Magnesia) 30 ml PO HS PRN PRN Reason: Constipation Stop: 07/02/18 21:01 Meclizine HCl (Antivert) 12.5 mg PO Q8H PRN PRN Reason: Dizziness Stop: 07/04/18 15:54 Metformin HCl (Glucophage) 500 mg PO BID [facility] Stop: 07/03/18 08:59 Last Admin: 05/06/18 16:33 Dose: 500 mg Miscellaneous (Solifenacin Succinate [Vesicare]) 5 mg PO DAILY [facility] Stop: 07/03/18 08:59 Multivitamins/Vitamin C (Theragran) 1 tab PO DAILY [facility] Stop: 07/03/18 08:59 Last Admin: 05/06/18 08:52 Dose: Not Given Pantoprazole Sodium (Protonix) 40 mg IVP DAILY [facility] Stop: 07/04/18 03:29 Last Admin: 05/06/18 11:10 Dose: Not Given Psyllium Hydrophilic Mucilloid (Metamucil) 1 pkt PO DAILY PRN PRN Reason: BOWEL MANAGEMENT Stop: 07/02/18 21:01 Sodium Phosphate (Fleet Enema) 135 ml RC Q48H PRN PRN Reason: IF DULCOLAX INEFFECTIVE Stop: 07/02/18 21:01 Zolpidem Tartrate (Ambien) 5 mg PO HS PRN PRN Reason: Insomnia Stop: 07/02/18 21:01 Last Admin: 05/07/18 00:13 Dose: 5 mg General: Alert, Cooperative, No acute distress HEENT: Atraumatic, Mucous membr. moist/pink Neck: Supple, +2 carotid pulse wo bruit Cardiovascular: Regular rate, Normal S1, Normal S2 Lungs: Clear to auscultation Abdomen: Bowel sounds, Soft, Obese, no Tender Extremities: no Edema Neurological: Normal tone, Sensation intact, Cranial nerves 3-12 NL Skin: no Rash Psych/Mental Status: Mood NL Assessment/Plan - Problem List Patient Problems: All Active Problems Anemia (Acute) D64.9 CAD (coronary artery disease) (Acute) I25.10 Gastroesophageal reflux disease (Acute) K21.9 Gout (Acute) M10.9 HTN (hypertension) (Acute) I10 Hyperlipidemia (Acute) E78.5 Neuropathy (Acute) G62.9 Osteoarthritis (Acute) M19.90 Vertigo (Acute) R42 - Assessment Assessment: 68 MALE WITH ANEMIA EGD SHOWED MILD ESOPHAGITIS AND GASTRITIS COLO SHOWED COLON POLYPS 1.AWAIT BX 2.CONT PROTONIX 3.REPEAT COLO IN 3 YRS
[2018-05-07 08:12] LABS: T3 FREE 2.6 pg/mL (2.0-4.4); T4 FREE 1.27 ng/dL (0.82-1.77)
[2018-05-07 08:46] LABS: URINE MICROSCOPIC INDICATED? YES; URINE SOURCE FOLEY PORT
[2018-05-07] MEDS: APAP/Codeine 300 mg/30 mg Tab PO PRN ×2 (09:34→17:04)
[2018-05-07] MEDS: Multivitamin Tab PO SCH (09:52)
[2018-05-07 09:59] LABS: URINE BILIRUBIN NEGATIVE (NEGATIVE); URINE CLARITY CLOUDY (CLEAR); URINE COLOR RED; URINE GLUCOSE (UA) NEGATIVE (NEGATIVE)
[2018-05-07 10:00] LABS: URINE BLOOD LARGE (NEGATIVE); URINE KETONE NEGATIVE (NEGATIVE); URINE LEUKOCYTE ESTERASE SMALL (NEGATIVE); URINE NITRATE POSITIVE (NEGATIVE); URINE PH 6.5 (4.6 - 8.0); URINE PROTEIN >300 mg/dL (NEGATIVE); URINE RBC >100 /hpf (0-5)
[2018-05-07 10:01] LABS: URINE BACTERIA MODERATE /hpf (NONE SEEN); URINE EPITHELIAL CELLS RARE /lpf (FEW)
[2018-05-07 11:26] LABS: EOSINOPHIL SMEAR SOURCE URINE; EOSINOPHILS SMEAR COUNT FEW EOSINOPHILS SEEN (NONE SEEN)
--- NOTE | 2018-05-07 14:42 | Pathology Report ---
[id number] Collection date: 05/06/2018 Surgeon: Dr. Genseis Hoff Specimen Description: 1. Duodenum biopsy 2. Antrum biopsy 3. Esophageal biopsy 4. Cecal polyp 5. Rectal polyp Gross Description: Part I: Received in formalin are two damon soft tissue fragments ranging from 0. 1 to 0.2 cm in greatest dimension. Totally submitted in one cassette labeled A. Gross Description: Part II: Received in formalin are two damon soft tissue fragments ranging from 0.1 to 0.2 cm in greatest dimension. Totally submitted in one cassette labeled B. Gross Description: Part III: Received in formalin are two damon soft tissue fragments ranging from 0.1 to 0.2 cm in greatest dimension. Totally submitted in one cassette labeled C. Gross Description: Part IV: Received in formalin are multiple damon soft tissue fragments ranging from 0.2 to 0.3 cm in greatest dimension, aggregating to 0.6 cm. Totally submitted in one cassette labeled D. Gross Description: Part V: Received in formal is a 1.0 x 0.8 x 0.7 cm damon polyp with a well-defined 0.5 cm base stalk that is inked in blue color as the margin. There is a 0.4 cm area of reddish discoloration seen on the surface of the polyp, which appears to represent an area of recent bleeding. The entire specimen is sectioned and totally submitted in two cassettes labeled E1 and E2. Microscopic Description: Part I: The histologic sections show duodenal mucosa with intact intestinal villi, showing no evidence for villous abnormality. Diagnosis: Part I: No evidence of celiac disease/sprue (duodenal biopsy). Microscopic Description: Part II: The histologic sections show gastric mucosa with mild chronic inflammation present consisting of lymphocytes and plasma cells. The Giemsa stain shows no evidence for Helicobacter pylori. Diagnosis: Part II: 1. Mild chronic gastritis, antrum biopsy. 2. The Giemsa stain is negative for Helicobacter pylori. Microscopic Description: Part III: The histologic sections show glandular mucosa with mild to moderate chronic inflammation present consisting of increased numbers of lymphocytes and plasma cells. There is no evidence for ulceration or atypia. The PAS stain shows no evidence for fungal organisms. The Alcian blue stain shows no significant abnormalities. Diagnosis: Part III: Chronic inflammation consistent with chronic esophagogastritis Microscopic Description: Part IV: The histologic sections show colon mucosa with adenomatous glandular changes present consisting of nuclear enlargement and stratification, with mostly tubules formed consistent with tubular adenoma. Diagnosis: Part IV: Benign adenomatous polyp consistent with tubular adenoma ( cecal polyp). Microscopic Description: Part V: The histologic sections show a polypoid portion of colon mucosa with adenomatous glandular changes present consisting of nuclear enlargement and stratification, forming mostly villous structures consistent villous adenoma. Areas of mild to focally moderate dysplasia are identified. The dysplastic changes do not appear to involve the inked margins at the base of polyp stalk. There is also an area of surface ulceration and hemorrhage with a large dilated vessel identified in this area. Diagnosis: Part V: 1. Benign adenomatous polyp consistent with villous adenoma (rectal polyp). 2. There is also an area of surface ulceration and hemorrhage associated with a dilated blood vessel. Comment: There is no evidence for malignancy. [facility]# [id number]
[2018-05-07] MEDS: Sodium Chloride 0.45% 1,000 ML IV SCH (17:17)
--- NOTE | 2018-05-07 19:04 | Discharge Summary ---
DATE OF DISCHARGE: 05/07/2018 SUBJECTIVE: The patient has a Javier catheter since yesterday and it has had blood off and on, requiring frequent irrigation. Occasionally, few small clots have been irrigated out. He is tolerating it well, but requires pain medications for his low back pain. OBJECTIVE: On exam, blood pressure 147/92, temperature 98.8, heart rate 60, respirations 18, saturating at 98%. Abdomen very obese, but soft. No tenderness. Javier catheter with blood-tinged urine or dark pink. Extremities: No edema. Heart and lung sounds normal. LABORATORY DATA: BUN 16, creatinine 1.2. The patient's Plavix has been put on hold from today. I discussed this with Dr. Miller who says the patient is cleared for surgery and should be scheduled after the Plavix effect wears off, which will be Sunday next week. IMPRESSION: 1. Urinary retention with large prostate, now with a Javier and with some hematuria, which is somewhat expected after the Javier insertion. Continue catheter care and maintenance and irrigations. 2. Bilateral hydronephrosis related to bladder outlet obstruction, should improve with time. 3. Possible lower ureteral stone; however, clinically not convincing diagnosis. We will observe and follow with ultrasound. 4. Morbid obesity, no major change. 5. Hypertension. Control is fair. A nice improvement on the diastolic numbers. 6. History of diabetes being managed with a sliding scale. JOB# [id number]
--- NOTE | 2018-05-07 19:30 | General Progress Note ---
Subjective - Review of Systems Service Date: 05/07/18 Subjective: alert, verbal, concerned about kidney fnc, discomfort urethra Objective - Results Result Diagrams: 05/06/18 06:06 05/07/18 05:25 Recent Labs: Laboratory Last Values WBC 9.0 Th/cmm (4.8-10.8) 05/06/18 06:06 RBC 3.86 Mil/cmm (3.80-5.80) 05/06/18 06:06 Hgb 11.6 gm/dL (12-16) L 05/06/18 06:06 Hct 34.8 % (41.0-60) L 05/06/18 06:06 MCV 90.3 fl (80-99) 05/06/18 06:06 MCH 30.1 pg (27.0-31.0) 05/06/18 06:06 MCHC Differential 33.4 pg (28.0-36.0) 05/06/18 06:06 RDW 14.0 % (11.5-20.0) 05/06/18 06:06 Plt Count 136 Th/cmm (150-400) L 05/06/18 06:06 MPV 10.5 fl 05/06/18 06:06 Neutrophils % 66.5 % (40.0-80.0) 05/06/18 06:06 Lymphocytes % 22.2 % (20.0-50.0) 05/06/18 06:06 Monocytes % 7.4 % (2.0-10.0) 05/06/18 06:06 Eosinophils % 3.0 % (0.0-5.0) 05/06/18 06:06 Basophils % 0.9 % (0.0-2.0) 05/06/18 06:06 Eos Smear Source URINE 05/07/18 08:20 Eos Smear Total Cells FEW EOSINOPHILS SEEN (NONE SEEN) 05/07/18 08:20 PT 11.1 SECONDS (9.5-11.5) 05/06/18 06:06 INR 1.07 (0.5-1.4) 05/06/18 06:06 Sodium 139 mEq/L (136-145) 05/07/18 05:25 Potassium 3.8 mEq/L (3.5-5.1) 05/07/18 05:25 Chloride 107 mEq/L (98-107) 05/07/18 05:25 Carbon Dioxide 27.0 mEq/L (21.0-31.0) 05/07/18 05:25 Anion Gap 8.8 (7.0-16.0) 05/07/18 05:25 BUN 16 mg/dL (7-25) 05/07/18 05:25 Creatinine 1.2 mg/dL (0.7-1.3) 05/07/18 05:25 Est GFR ( Amer) > 60.0 ml/min (>90) 05/07/18 05:25 Est GFR (Non-Af Amer) > 60.0 ml/min 05/07/18 05:25 BUN/Creatinine Ratio 13.3 05/07/18 05:25 Glucose 154 mg/dL (70-105) H 05/07/18 05:25 POC Glucose 202 MG/DL (70 - 105) H 05/07/18 17:08 Hemoglobin A1c % 7.6 % (4.0-6.0) H 05/03/18 15:10 Uric Acid 6.0 mg/dL (4.4-7.6) 05/06/18 06:06 Calcium 8.9 mg/dL (8.6-10.3) 05/07/18 05:25 Phosphorus 3.7 mg/dL (2.5-5.0) 05/07/18 05:25 Magnesium 2.0 mg/dL (1.9-2.7) 05/07/18 05:25 Total Bilirubin 0.3 mg/dL (0.3-1.0) 05/04/18 06:00 AST 14 U/L (13-39) 05/04/18 06:00 ALT 17 U/L (7-52) 05/04/18 06:00 Alkaline Phosphatase 88 U/L (34-104) 05/04/18 06:00 Creatine Kinase 131 U/L (30-223) 05/03/18 15:10 Troponin I 0.01 ng/mL (0.01-0.05) 05/03/18 15:10 B-Natriuretic Peptide 116.0 pg/mL (5.0-100.0) H 05/03/18 15:10 Total Protein 6.5 gm/dL (6.0-8.3) 05/04/18 06:00 Albumin 3.5 gm/dL (4.2-5.5) L 05/04/18 06:00 Globulin 3.0 gm/dL 05/04/18 06:00 Albumin/Globulin Ratio 1.2 (1.0-1.8) 05/04/18 06:00 Triglycerides 157 mg/dL (<150) H 05/04/18 06:00 Cholesterol 93 mg/dL (<200) 05/04/18 06:00 LDL Cholesterol Direct 42 mg/dL (75-193) L 05/04/18 06:00 HDL Cholesterol 29 mg/dL (23-92) 05/04/18 06:00 Prostate Specific Ag 1.7 ng/mL (0.0-4.0) 05/06/18 06:06 Free T4 1.27 ng/dL (0.82-1.77) 05/06/18 06:06 Free T3 2.6 pg/mL (2.0-4.4) 05/06/18 06:06 TSH 6.87 uIU/ml (0.34-5.60) H 05/04/18 06:00 Urine Source [place] 05/07/18 08:20 Urine Color RED 05/07/18 08:20 Urine Clarity CLOUDY (CLEAR) 05/07/18 08:20 Urine pH 6.5 (4.6 - 8.0) 05/07/18 08:20 Ur Specific [place] 1.020 (1.005-1.030) 05/07/18 08:20 Urine Protein >300 mg/dL (NEGATIVE) H 05/07/18 08:20 Urine Glucose (UA) NEGATIVE mg/dL (NEGATIVE) 05/07/18 08:20 Urine Ketones NEGATIVE mg/dL (NEGATIVE) 05/07/18 08:20 Urine Blood LARGE (NEGATIVE) H 05/07/18 08:20 Urine Nitrate POSITIVE (NEGATIVE) H 05/07/18 08:20 Urine Bilirubin NEGATIVE (NEGATIVE) 05/07/18 08:20 Urine Urobilinogen 1.0 E.U./dL (0.2 - 1.0) 05/07/18 08:20 Ur Leukocyte Esterase SMALL (NEGATIVE) H 05/07/18 08:20 Urine RBC >100 /hpf (0-5) H 07/03/18 08:20 Urine WBC 2-5 /hpf (0-5) 05/07/18 08:20 Ur Epithelial Cells RARE /lpf (FEW) 05/07/18 08:20 Urine Bacteria MODERATE /hpf (NONE SEEN) H 05/07/18 08:20 Ur Random Sodium 140 mmol/L 05/07/18 08:20 Urine Creatinine 58.0 mg/dl (39.0-259.0) 05/07/18 08:20 - Physical Exam Vitals and I&O: Vital Signs Temp 98.0 F 05/07/18 15:38 Pulse 101 05/07/18 17:04 Resp 18 05/07/18 16:00 BP 124/69 05/07/18 17:04 Pulse Ox 95 05/07/18 15:38 Intake & Output 05/07/18 05/07/18 05/08/18 06:59 18:59 06:59 Intake Total 200 600 Output Total 300 860 Balance -100 -260 Weight (lbs) 101.151 kg 101.151 kg Intake: Oral 200 600 Output: Urine 300 860 Other: # Voids 1 3 # Bowel Movements 1 Weight Source Bedscale Bedscale Active Medications: Current Medications Acetaminophen (Tylenol) 650 mg PO Q4H PRN PRN Reason: Pain or Fever >101 Stop: 07/02/18 21:01 Last Admin: 05/06/18 21:10 Dose: 650 mg Acetaminophen/Codeine Phosphate (Tylenol W/Codeine #3) 1 tab PO Q8H PRN PRN Reason: FOR PAIN IF TYLENOL INEFFECTIV Stop: 07/02/18 21:01 Last Admin: 05/07/18 17:04 Dose: 1 tab Al Hydrox/Mg Hydrox/Simethicone (Maalox) 30 ml PO Q4HR PRN PRN Reason: Heartburn Stop: 07/03/18 20:44 Last Admin: 05/04/18 22:23 Dose: 30 ml Allopurinol (Zyloprim) 100 mg PO DAILY [facility] Stop: 07/03/18 08:59 Last Admin: 05/07/18 09:38 Dose: 100 mg Amlodipine Besylate (Norvasc) 10 mg PO DAILY [facility] Stop: 07/03/18 08:59 Last Admin: 05/07/18 09:38 Dose: 10 mg Atorvastatin Calcium (Lipitor) 40 mg PO HS [facility] Stop: 07/02/18 22:59 Last Admin: 05/06/18 20:45 Dose: 40 mg Bisacodyl (Dulcolax 10 Mg Supp) 10 mg RC DAILY PRN PRN Reason: IF MOM INEFFECTIVE Stop: 07/02/18 21:01 Carvedilol (Coreg) 12.5 mg PO BID [facility] Stop: 07/03/18 08:59 Last Admin: 05/07/18 17:04 Dose: 12.5 mg Clopidogrel Bisulfate (Plavix) 75 mg PO DAILY [facility] Stop: 07/03/18 08:59 Last Admin: 05/07/18 09:37 Dose: Not Given Diphenhydramine HCl (Benadryl) 25 mg PO Q8HR [facility] Stop: 07/03/18 04:59 Last Admin: 05/07/18 12:51 Dose: 25 mg Docusate Sodium (Colace) 100 mg PO BID [facility] Stop: 07/03/18 08:59 Last Admin: 05/07/18 16:44 Dose: Not Given Gabapentin (Neurontin) 300 mg PO DAILY [facility] Stop: 07/03/18 08:59 Last Admin: 05/07/18 09:37 Dose: 300 mg Guaifenesin/Dextromethorphan (Robitussin Dm) 10 ml PO Q6H PRN PRN Reason: Cough Stop: 07/02/18 21:01 Last Admin: 05/05/18 21:52 Dose: 10 ml Sodium Chloride (Nacl 0.45%) 1,000 mls @ 50 mls/hr IV .Q20H [facility] Stop: 07/02/18 22:14 Last Admin: 05/07/18 17:17 Dose: 50 mls/hr Insulin Aspart (Novolog Insulin Sliding Scale) 0 units SUBQ Q6HR [facility]; Protocol Stop: 07/03/18 00:00 Last Admin: 05/07/18 18:22 Dose: 4 units Lisinopril (Zestril) 5 mg PO DAILY [facility] Stop: 07/03/18 08:59 Last Admin: 05/07/18 09:37 Dose: 5 mg Loperamide HCl (Imodium) 2 mg PO Q6H PRN PRN Reason: Diarrhea Stop: 07/02/18 21:01 Magnesium Hydroxide (Milk Of Magnesia) 30 ml PO HS PRN PRN Reason: Constipation Stop: 07/02/18 21:01 Meclizine HCl (Antivert) 12.5 mg PO Q8H PRN PRN Reason: Dizziness Stop: 07/04/18 15:54 Metformin HCl (Glucophage) 500 mg PO BID [facility] Stop: 07/03/18 08:59 Last Admin: 05/07/18 17:04 Dose: 500 mg Miscellaneous (Solifenacin Succinate [Vesicare]) 5 mg PO DAILY [facility] Stop: 07/03/18 08:59 Multivitamins/Vitamin C (Theragran) 1 tab PO DAILY [facility] Stop: 07/03/18 08:59 Last Admin: 05/07/18 09:52 Dose: 1 tab Pantoprazole Sodium (Protonix) 40 mg IVP DAILY [facility] Stop: 07/04/18 03:29 Last Admin: 05/07/18 09:53 Dose: 40 mg Psyllium Hydrophilic Mucilloid (Metamucil) 1 pkt PO DAILY PRN PRN Reason: BOWEL MANAGEMENT Stop: 07/02/18 21:01 Sodium Phosphate (Fleet Enema) 135 ml RC Q48H PRN PRN Reason: IF DULCOLAX INEFFECTIVE Stop: 07/02/18 21:01 Zolpidem Tartrate (Ambien) 5 mg PO HS PRN PRN Reason: Insomnia Stop: 07/02/18 21:01 Last Admin: 05/07/18 00:13 Dose: 5 mg General: Alert, Cooperative, No acute distress HEENT: Atraumatic, Mucous membr. moist/pink Neck: Supple, +2 carotid pulse wo bruit Cardiovascular: Regular rate, Normal S1, Normal S2 Lungs: Clear to auscultation Abdomen: Bowel sounds, Soft, Obese, no Tender Extremities: no Edema Neurological: Normal tone, Sensation intact, Cranial nerves 3-12 NL Skin: no Rash Psych/Mental Status: Mood NL Other physical findings: gross hematuria in [place] Cath Assessment/Plan - Problem List Patient Problems: All Active Problems Anemia (Acute) D64.9 CAD (coronary artery disease) (Acute) I25.10 Gastroesophageal reflux disease (Acute) K21.9 Gout (Acute) M10.9 HTN (hypertension) (Acute) I10 Hyperlipidemia (Acute) E78.5 Neuropathy (Acute) G62.9 Osteoarthritis (Acute) M19.90 Vertigo (Acute) R42 - Assessment Assessment: CKD B/L [place] 2/2 renal calculi BPH w/ bladder distension Occ. Vertigo BPPV Cholelithiais Subclinical Hypothyroidism T2DM w/ CKD Ess Htn w/ CKD Cx UTI Gross Hematuria 2/2 Plavix, trauma - Plan Plan: Lab - Result Diagrams 05/06/18 06:06 05/06/18 06:06 Current Medications Acetaminophen (Tylenol) 650 mg PO Q4H PRN PRN Reason: Pain or Fever >101 Stop: 07/02/18 21:01 Acetaminophen/Codeine Phosphate (Tylenol W/Codeine #3) 1 tab PO Q8H PRN PRN Reason: FOR PAIN IF TYLENOL INEFFECTIV Stop: 07/02/18 21:01 Al Hydrox/Mg Hydrox/Simethicone (Maalox) 30 ml PO Q4HR PRN PRN Reason: Heartburn Stop: 07/03/18 20:44 Last Admin: 05/04/18 22:23 Dose: 30 ml Allopurinol (Zyloprim) 100 mg PO DAILY [facility] Stop: 07/03/18 08:59 Last Admin: 05/06/18 08:51 Dose: Not Given Amlodipine Besylate (Norvasc) 10 mg PO DAILY [facility] Stop: 07/03/18 08:59 Last Admin: 05/06/18 08:51 Dose: Not Given Atorvastatin Calcium (Lipitor) 40 mg PO HS [facility] Stop: 07/02/18 22:59 Last Admin: 05/05/18 20:26 Dose: 40 mg Bisacodyl (Dulcolax 10 Mg Supp) 10 mg RC DAILY PRN PRN Reason: IF MOM INEFFECTIVE Stop: 07/02/18 21:01 Carvedilol (Coreg) 12.5 mg PO BID [facility] Stop: 07/03/18 08:59 Last Admin: 05/06/18 08:52 Dose: Not Given Clopidogrel Bisulfate (Plavix) 75 mg PO DAILY [facility] Stop: 07/03/18 08:59 Last Admin: 05/06/18 08:52 Dose: Not Given Diphenhydramine HCl (Benadryl) 25 mg PO Q8HR [facility] Stop: 07/03/18 04:59 Last Admin: 05/06/18 04:52 Dose: Not Given Docusate Sodium (Colace) 100 mg PO BID [facility] Stop: 07/03/18 08:59 Last Admin: 05/06/18 08:52 Dose: Not Given Gabapentin (Neurontin) 300 mg PO DAILY [facility] Stop: 07/03/18 08:59 Last Admin: 05/06/18 08:52 Dose: Not Given Guaifenesin/Dextromethorphan (Robitussin Dm) 10 ml PO Q6H PRN PRN Reason: Cough Stop: 07/02/18 21:01 Last Admin: 05/05/18 21:52 Dose: 10 ml Sodium Chloride (Nacl 0.45%) 1,000 mls @ 50 mls/hr IV .Q20H [facility] Stop: 07/02/18 22:14 Last Admin: 05/05/18 13:42 Dose: 50 mls/hr Insulin Aspart (Novolog Insulin Sliding Scale) 0 units SUBQ Q6HR [facility]; Protocol Stop: 07/03/18 00:00 Last Admin: 05/06/18 06:41 Dose: Not Given Lisinopril (Zestril) 5 mg PO DAILY [facility] Stop: 07/03/18 08:59 Last Admin: 05/06/18 08:52 Dose: Not Given Loperamide HCl (Imodium) 2 mg PO Q6H PRN PRN Reason: Diarrhea Stop: 07/02/18 21:01 Magnesium Hydroxide (Milk Of Magnesia) 30 ml PO HS PRN PRN Reason: Constipation Stop: 07/02/18 21:01 Meclizine HCl (Antivert) 12.5 mg PO Q8H PRN PRN Reason: Dizziness Stop: 07/04/18 15:54 Metformin HCl (Glucophage) 500 mg PO BID [facility] Stop: 07/03/18 08:59 Last Admin: 05/06/18 08:52 Dose: Not Given Miscellaneous (Solifenacin Succinate [Vesicare]) 5 mg PO DAILY [facility] Stop: 07/03/18 08:59 Multivitamins/Vitamin C (Theragran) 1 tab PO DAILY [facility] Stop: 07/03/18 08:59 Last Admin: 05/06/18 08:52 Dose: Not Given Pantoprazole Sodium (Protonix) 40 mg IVP DAILY [facility] Stop: 07/04/18 03:29 Last Admin: 05/06/18 11:10 Dose: Not Given Psyllium Hydrophilic Mucilloid (Metamucil) 1 pkt PO DAILY PRN PRN Reason: BOWEL MANAGEMENT Stop: 07/02/18 21:01 Sodium Phosphate (Fleet Enema) 135 ml RC Q48H PRN PRN Reason: IF DULCOLAX INEFFECTIVE Stop: 07/02/18 21:01 Zolpidem Tartrate (Ambien) 5 mg PO HS PRN PRN Reason: Insomnia Stop: 07/02/18 21:01 Last Admin: 05/05/18 00:01 Dose: 5 mg Lab - Result Diagrams 05/06/18 06:06 05/07/18 05:25 Kidney fnc much improved Urology input noted off Plavix flush [place] Cath 12/07 to Hematuria, discomfort start Rocephin prophylactically Nutritional Asmnt/Malnutr-PDOC - Dietary Evaluation Malnutrition Findings (Please click <Entered> for more info): Nutritional Asmnt/Malnutrition Start: 05/07/18 17: 24 Text: Status: Complete Freq: Protocol: Document 05/07/18 17:24 LCALISA (Rec: 05/07/18 17:37 NICHOLAS [email or web address]) Nutritional Asmnt/Malnutrition Patient General Information Nutritional Screening Moderate Risk Diagnosis dizziness, vertigo, TIA cardiac arrythmias anemi Pertinent Medical Hx/Surgical Hx HTN, OA, gout, hyperlipidemia, CAD, GERD, neuropathy, DM Subjective Information Pt had EGD and colonoscopy yesterday 05/06. Per EMR, PO intake 75% on full liquid diet . Diet advances to regular at dinner today. Current Diet Order/ Nutrition Support full liquid Pertinent Medications colace, novolog, glucophage, theragran, protonix, nacl 0.45 % Pertinent Labs 05/07 glucose 154, POC 149-277 Nutritional Hx/Data Height 1.65 m Height (Calculated Centimeters) 165.1 Current Weight (lbs) 101.151 kg Weight (Calculated Kilograms) 101.2 Weight (Calculated Grams) 596023.1 Cinebar Body Weight 136 Body Mass Index (BMI) 37.0 Weight Status Obese GI Symptoms GI Symptoms None Last BM 05/06 Difficult in: None Skin Integrity/Comment: intact Current %PO Good (75-100%) Estimated Nutritional Goals BEE in Kcals: Adj wt of IBW Calories/Kcals/Kg 25-30 Kcals Calculated 5131-1384 Protein: Adj wt of IBW Protein g/k-1.2 Protein Calculated 72-84 Fluid: ml 1800-2160ml (1ml/kcal) Nutritional Problem 1. Problem Problem altered nutrition related lab Etiology hx of DM Signs/Symptoms: glucose 154, POC 149-277 Malnutrition Alert Is there a minimum of two criteria No selected? Query Text:Check all the applicable criteria. A minimum of two criteria are recommended for diagnosis of either severe or non-severe malnutrition. Malnutrition Related to Morbid Obesity Malnutrition related to morbid obesity No Intervention/Recommendation Comments 1. Recomend [facility] [place] diet for better glycemic control 2. Monitor PO intake, wt, labs and skin integrity 3. F/U as moderate risk in 3-5 days, 05/10-05/12 Expected Outcomes/Goals Expected Outcomes/Goals 1. PO intake to meet at least 75% of nutritional needs. 2. Wt stability, skin to remain intact, labs to approach WNL.
[2018-05-07] MEDS: Guaifenesin DM 10 ML UDC PO PRN (20:14)
[2018-05-07] MEDS: Atorvastatin Calcium 10 MG TAB PO SCH (20:14)
--- NOTE | 2018-05-07 20:28 | Progress Notes ---
DATE: 05/07/2018 UROLOGY PROGRESS NOTE The patient is doing okay with the catheter, which still has some blood off and on. DICTATION ENDS HERE JOB# [id number]
--- NOTE | 2018-05-07 20:29 | General Progress Note ---
Subjective - Review of Systems Service Date: 05/07/18 Objective - Results Result Diagrams: 05/06/18 06:06 05/07/18 05:25 Recent Labs: Laboratory Last Values WBC 9.0 Th/cmm (4.8-10.8) 05/06/18 06:06 RBC 3.86 Mil/cmm (3.80-5.80) 05/06/18 06:06 Hgb 11.6 gm/dL (12-16) L 05/06/18 06:06 Hct 34.8 % (41.0-60) L 05/06/18 06:06 MCV 90.3 fl (80-99) 05/06/18 06:06 MCH 30.1 pg (27.0-31.0) 05/06/18 06:06 MCHC Differential 33.4 pg (28.0-36.0) 05/06/18 06:06 RDW 14.0 % (11.5-20.0) 05/06/18 06:06 Plt Count 136 Th/cmm (150-400) L 05/06/18 06:06 MPV 10.5 fl 05/06/18 06:06 Neutrophils % 66.5 % (40.0-80.0) 05/06/18 06:06 Lymphocytes % 22.2 % (20.0-50.0) 05/06/18 06:06 Monocytes % 7.4 % (2.0-10.0) 05/06/18 06:06 Eosinophils % 3.0 % (0.0-5.0) 05/06/18 06:06 Basophils % 0.9 % (0.0-2.0) 05/06/18 06:06 Eos Smear Source URINE 05/07/18 08:20 Eos Smear Total Cells FEW EOSINOPHILS SEEN (NONE SEEN) 05/07/18 08:20 PT 11.1 SECONDS (9.5-11.5) 05/06/18 06:06 INR 1.07 (0.5-1.4) 05/06/18 06:06 Sodium 139 mEq/L (136-145) 05/07/18 05:25 Potassium 3.8 mEq/L (3.5-5.1) 05/07/18 05:25 Chloride 107 mEq/L (98-107) 05/07/18 05:25 Carbon Dioxide 27.0 mEq/L (21.0-31.0) 05/07/18 05:25 Anion Gap 8.8 (7.0-16.0) 05/07/18 05:25 BUN 16 mg/dL (7-25) 05/07/18 05:25 Creatinine 1.2 mg/dL (0.7-1.3) 05/07/18 05:25 Est GFR ( Amer) > 60.0 ml/min (>90) 05/07/18 05:25 Est GFR (Non-Af Amer) > 60.0 ml/min 05/07/18 05:25 BUN/Creatinine Ratio 13.3 05/07/18 05:25 Glucose 154 mg/dL (70-105) H 05/07/18 05:25 POC Glucose 202 MG/DL (70 - 105) H 05/07/18 17:08 Hemoglobin A1c % 7.6 % (4.0-6.0) H 05/03/18 15:10 Uric Acid 6.0 mg/dL (4.4-7.6) 05/06/18 06:06 Calcium 8.9 mg/dL (8.6-10.3) 05/07/18 05:25 Phosphorus 3.7 mg/dL (2.5-5.0) 05/07/18 05:25 Magnesium 2.0 mg/dL (1.9-2.7) 05/07/18 05:25 Total Bilirubin 0.3 mg/dL (0.3-1.0) 05/04/18 06:00 AST 14 U/L (13-39) 05/04/18 06:00 ALT 17 U/L (7-52) 05/04/18 06:00 Alkaline Phosphatase 88 U/L (34-104) 05/04/18 06:00 Creatine Kinase 131 U/L (30-223) 05/03/18 15:10 Troponin I 0.01 ng/mL (0.01-0.05) 05/03/18 15:10 B-Natriuretic Peptide 116.0 pg/mL (5.0-100.0) H 05/03/18 15:10 Total Protein 6.5 gm/dL (6.0-8.3) 05/04/18 06:00 Albumin 3.5 gm/dL (4.2-5.5) L 05/04/18 06:00 Globulin 3.0 gm/dL 05/04/18 06:00 Albumin/Globulin Ratio 1.2 (1.0-1.8) 05/04/18 06:00 Triglycerides 157 mg/dL (<150) H 05/04/18 06:00 Cholesterol 93 mg/dL (<200) 05/04/18 06:00 LDL Cholesterol Direct 42 mg/dL (75-193) L 05/04/18 06:00 HDL Cholesterol 29 mg/dL (23-92) 05/04/18 06:00 Prostate Specific Ag 1.7 ng/mL (0.0-4.0) 05/06/18 06:06 Free T4 1.27 ng/dL (0.82-1.77) 05/06/18 06:06 Free T3 2.6 pg/mL (2.0-4.4) 05/06/18 06:06 TSH 6.87 uIU/ml (0.34-5.60) H 05/04/18 06:00 Urine Source [place] 05/07/18 08:20 Urine Color RED 05/07/18 08:20 Urine Clarity CLOUDY (CLEAR) 05/07/18 08:20 Urine pH 6.5 (4.6 - 8.0) 05/07/18 08:20 Ur Specific [place] 1.020 (1.005-1.030) 05/07/18 08:20 Urine Protein >300 mg/dL (NEGATIVE) H 05/07/18 08:20 Urine Glucose (UA) NEGATIVE mg/dL (NEGATIVE) 05/07/18 08:20 Urine Ketones NEGATIVE mg/dL (NEGATIVE) 05/07/18 08:20 Urine Blood LARGE (NEGATIVE) H 05/07/18 08:20 Urine Nitrate POSITIVE (NEGATIVE) H 05/07/18 08:20 Urine Bilirubin NEGATIVE (NEGATIVE) 05/07/18 08:20 Urine Urobilinogen 1.0 E.U./dL (0.2 - 1.0) 05/07/18 08:20 Ur Leukocyte Esterase SMALL (NEGATIVE) H 05/07/18 08:20 Urine RBC >100 /hpf (0-5) H 05/07/18 08:20 Urine WBC 2-5 /hpf (0-5) 05/07/18 08:20 Ur Epithelial Cells RARE /lpf (FEW) 05/07/18 08:20 Urine Bacteria MODERATE /hpf (NONE SEEN) H 05/07/18 08:20 Ur Random Sodium 140 mmol/L 05/07/18 08:20 Urine Creatinine 58.0 mg/dl (39.0-259.0) 05/07/18 08:20 - Physical Exam Vitals and I&O: Vital Signs Temp 98.0 F 05/07/18 15:38 Pulse 101 05/07/18 17:04 Resp 18 05/07/18 16:00 BP 124/69 05/07/18 17:04 Pulse Ox 95 05/07/18 15:38 Intake & Output 05/07/18 05/07/18 05/08/18 06:59 18:59 06:59 Intake Total 200 600 Output Total 300 860 Balance -100 -260 Weight (lbs) 101.151 kg 101.151 kg Intake: Oral 200 600 Output: Urine 300 860 Other: # Voids 1 3 # Bowel Movements 1 Weight Source Bedscale Bedscale Active Medications: Current Medications Acetaminophen (Tylenol) 650 mg PO Q4H PRN PRN Reason: Pain or Fever >101 Stop: 07/02/18 21:01 Last Admin: 05/06/18 21:10 Dose: 650 mg Acetaminophen/Codeine Phosphate (Tylenol W/Codeine #3) 1 tab PO Q8H PRN PRN Reason: FOR PAIN IF TYLENOL INEFFECTIV Stop: 07/02/18 21:01 Last Admin: 05/07/18 17:04 Dose: 1 tab Al Hydrox/Mg Hydrox/Simethicone (Maalox) 30 ml PO Q4HR PRN PRN Reason: Heartburn Stop: 07/03/18 20:44 Last Admin: 05/04/18 22:23 Dose: 30 ml Allopurinol (Zyloprim) 100 mg PO DAILY [facility] Stop: 07/03/18 08:59 Last Admin: 05/07/18 09:38 Dose: 100 mg Amlodipine Besylate (Norvasc) 10 mg PO DAILY [facility] Stop: 07/03/18 08:59 Last Admin: 05/07/18 09:38 Dose: 10 mg Atorvastatin Calcium (Lipitor) 40 mg PO HS [facility] Stop: 07/02/18 22:59 Last Admin: 05/07/18 20:14 Dose: 40 mg Bisacodyl (Dulcolax 10 Mg Supp) 10 mg RC DAILY PRN PRN Reason: IF MOM INEFFECTIVE Stop: 07/02/18 21:01 Carvedilol (Coreg) 12.5 mg PO BID [facility] Stop: 07/03/18 08:59 Last Admin: 05/07/18 17:04 Dose: 12.5 mg Diphenhydramine HCl (Benadryl) 25 mg PO Q8HR [facility] Stop: 07/03/18 04:59 Last Admin: 05/07/18 20:14 Dose: 25 mg Docusate Sodium (Colace) 100 mg PO BID [facility] Stop: 07/03/18 08:59 Last Admin: 05/07/18 16:44 Dose: Not Given Gabapentin (Neurontin) 300 mg PO DAILY [facility] Stop: 07/03/18 08:59 Last Admin: 05/07/18 09:37 Dose: 300 mg Guaifenesin/Dextromethorphan (Robitussin Dm) 10 ml PO Q6H PRN PRN Reason: Cough Stop: 07/02/18 21:01 Last Admin: 05/07/18 20:14 Dose: 10 ml Sodium Chloride (Nacl 0.45%) 1,000 mls @ 50 mls/hr IV .Q20H [facility] Stop: 07/02/18 22:14 Last Admin: 05/07/18 17:17 Dose: 50 mls/hr Ceftriaxone Sodium 1 gm/ (Sodium Chloride) 50 mls @ 100 mls/hr IV Q24HR@2100 [facility] Stop: 07/06/18 20:59 Insulin Aspart (Novolog Insulin Sliding Scale) 0 units SUBQ Q6HR [facility]; Protocol Stop: 07/03/18 00:00 Last Admin: 05/07/18 18:22 Dose: 4 units Lisinopril (Zestril) 5 mg PO DAILY [facility] Stop: 07/03/18 08:59 Last Admin: 05/07/18 09:37 Dose: 5 mg Loperamide HCl (Imodium) 2 mg PO Q6H PRN PRN Reason: Diarrhea Stop: 07/02/18 21:01 Magnesium Hydroxide (Milk Of Magnesia) 30 ml PO HS PRN PRN Reason: Constipation Stop: 07/02/18 21:01 Meclizine HCl (Antivert) 12.5 mg PO Q8H PRN PRN Reason: Dizziness Stop: 07/04/18 15:54 Metformin HCl (Glucophage) 500 mg PO BID [facility] Stop: 07/03/18 08:59 Last Admin: 05/07/18 17:04 Dose: 500 mg Miscellaneous (Solifenacin Succinate [Vesicare]) 5 mg PO DAILY [facility] Stop: 07/03/18 08:59 Multivitamins/Vitamin C (Theragran) 1 tab PO DAILY [facility] Stop: 07/03/18 08:59 Last Admin: 05/07/18 09:52 Dose: 1 tab Pantoprazole Sodium (Protonix) 40 mg IVP DAILY [facility] Stop: 07/04/18 03:29 Last Admin: 05/07/18 09:53 Dose: 40 mg Psyllium Hydrophilic Mucilloid (Metamucil) 1 pkt PO DAILY PRN PRN Reason: BOWEL MANAGEMENT Stop: 07/02/18 21:01 Sodium Phosphate (Fleet Enema) 135 ml RC Q48H PRN PRN Reason: IF DULCOLAX INEFFECTIVE Stop: 07/02/18 21:01 Zolpidem Tartrate (Ambien) 5 mg PO HS PRN PRN Reason: Insomnia Stop: 07/02/18 21:01 Last Admin: 05/07/18 00:13 Dose: 5 mg General: Alert, Cooperative, No acute distress HEENT: Atraumatic, Mucous membr. moist/pink Neck: Supple, +2 carotid pulse wo bruit Cardiovascular: Regular rate, Normal S1, Normal S2 Lungs: Clear to auscultation Abdomen: Bowel sounds, Soft, Obese, no Tender Extremities: no Edema Neurological: Normal tone, Sensation intact, Cranial nerves 3-12 NL Skin: no Rash Psych/Mental Status: Mood NL Assessment/Plan - Problem List Patient Problems: All Active Problems Anemia (Acute) D64.9 CAD (coronary artery disease) (Acute) I25.10 Gastroesophageal reflux disease (Acute) K21.9 Gout (Acute) M10.9 HTN (hypertension) (Acute) I10 Hyperlipidemia (Acute) E78.5 Neuropathy (Acute) G62.9 Osteoarthritis (Acute) M19.90 Vertigo (Acute) R42 - Plan Plan: will monitor Nutritional Asmnt/Malnutr-PDOC - Dietary Evaluation Malnutrition Findings (Please click <Entered> for more info): Nutritional Asmnt/Malnutrition Start: 05/07/18 17: 24 Text: Status: Complete Freq: Protocol: Document 05/07/18 17:24 NICHOLAS (Rec: 05/07/18 17:37 NICHOLAS [email or web address]) Nutritional Asmnt/Malnutrition Patient General Information Nutritional Screening Moderate Risk Diagnosis dizziness, vertigo, TIA cardiac arrythmias anemi Pertinent Medical Hx/Surgical Hx HTN, OA, gout, hyperlipidemia, CAD, GERD, neuropathy, DM Subjective Information Pt had EGD and colonoscopy yesterday 05/06. Per EMR, PO intake 75% on full liquid diet . Diet advances to regular at dinner today. Current Diet Order/ Nutrition Support full liquid Pertinent Medications colace, novolog, glucophage, theragran, protonix, nacl 0.45 % Pertinent Labs 05/07 glucose 154, POC 149-277 Nutritional Hx/Data Height 1.65 m Height (Calculated Centimeters) 165.1 Current Weight (lbs) 101.151 kg Weight (Calculated Kilograms) 101.2 Weight (Calculated Grams) 502734.1 [place] Body Weight 136 Body Mass Index (BMI) 37.0 Weight Status Obese GI Symptoms GI Symptoms None Last BM 05/06 Difficult in: None Skin Integrity/Comment: intact Current %PO Good (75-100%) Estimated Nutritional Goals BEE in Kcals: Adj wt of IBW Calories/Kcals/Kg 25-30 Kcals Calculated 6895-9577 Protein: Adj wt of IBW Protein g/k-1.2 Protein Calculated 72-84 Fluid: ml 1800-2160ml (1ml/kcal) Nutritional Problem 1. Problem Problem altered nutrition related lab Etiology hx of DM Signs/Symptoms: glucose 154, POC 149-277 Malnutrition Alert Is there a minimum of two criteria No selected? Query Text:Check all the applicable criteria. A minimum of two criteria are recommended for diagnosis of either severe or non-severe malnutrition. Malnutrition Related to Morbid Obesity Malnutrition related to morbid obesity No Intervention/Recommendation Comments 1. Recomend CCHO diet for better glycemic control 2. Monitor PO intake, wt, labs and skin integrity 3. F/U as moderate risk in 3-5 days, 05/10-05/12 Expected Outcomes/Goals Expected Outcomes/Goals 1. PO intake to meet at least 75% of nutritional needs. 2. Wt stability, skin to remain intact, labs to approach WNL.
[2018-05-07] MEDS: cefTRIAXone 1 GM in Sodium Chloride 0.9% 50 ML IV SCH (21:23)
[2018-05-08] MEDS: APAP/Codeine 300 mg/30 mg Tab PO PRN ×2 (00:45→08:45)
[2018-05-08] MEDS: INSULIN ASPART SLIDING SCALE 100 UNITS/ML UNIT SUBQ SCH ×5 (00:53→23:33)
[2018-05-08] MEDS: Multivitamin Tab PO SCH (08:45)
--- NOTE | 2018-05-08 09:17 | GI Progress Note ---
Subjective - Review of Systems Subjective: NO EVENTS Objective - Results Result Diagrams: 05/06/18 06:06 05/07/18 05:25 Recent Labs: Laboratory Last Values WBC 9.0 Th/cmm (4.8-10.8) 05/06/18 06:06 RBC 3.86 Mil/cmm (3.80-5.80) 05/06/18 06:06 Hgb 11.6 gm/dL (12-16) L 05/06/18 06:06 Hct 34.8 % (41.0-60) L 05/06/18 06:06 MCV 90.3 fl (80-99) 05/06/18 06:06 MCH 30.1 pg (27.0-31.0) 05/06/18 06:06 MCHC Differential 33.4 pg (28.0-36.0) 05/06/18 06:06 RDW 14.0 % (11.5-20.0) 05/06/18 06:06 Plt Count 136 Th/cmm (150-400) L 05/06/18 06:06 MPV 10.5 fl 05/06/18 06:06 Neutrophils % 66.5 % (40.0-80.0) 05/06/18 06:06 Lymphocytes % 22.2 % (20.0-50.0) 05/06/18 06:06 Monocytes % 7.4 % (2.0-10.0) 05/06/18 06:06 Eosinophils % 3.0 % (0.0-5.0) 05/06/18 06:06 Basophils % 0.9 % (0.0-2.0) 05/06/18 06:06 Eos Smear Source URINE 05/07/18 08:20 Eos Smear Total Cells FEW EOSINOPHILS SEEN (NONE SEEN) 05/07/18 08:20 PT 11.1 SECONDS (9.5-11.5) 05/06/18 06:06 INR 1.07 (0.5-1.4) 05/06/18 06:06 Sodium 139 mEq/L (136-145) 05/07/18 05:25 Potassium 3.8 mEq/L (3.5-5.1) 05/07/18 05:25 Chloride 107 mEq/L (98-107) 05/07/18 05:25 Carbon Dioxide 27.0 mEq/L (21.0-31.0) 05/07/18 05:25 Anion Gap 8.8 (7.0-16.0) 05/07/18 05:25 BUN 16 mg/dL (7-25) 05/07/18 05:25 Creatinine 1.2 mg/dL (0.7-1.3) 05/07/18 05:25 Est GFR ( Amer) > 60.0 ml/min (>90) 05/07/18 05:25 Est GFR (Non-Af Amer) > 60.0 ml/min 05/07/18 05:25 BUN/Creatinine Ratio 13.3 05/07/18 05:25 Glucose 154 mg/dL (70-105) H 05/07/18 05:25 POC Glucose 150 MG/DL (70 - 105) H 05/08/18 07:04 Hemoglobin A1c % 7.6 % (4.0-6.0) H 05/03/18 15:10 Uric Acid 6.0 mg/dL (4.4-7.6) 05/06/18 06:06 Calcium 8.9 mg/dL (8.6-10.3) 05/07/18 05:25 Phosphorus 3.7 mg/dL (2.5-5.0) 05/07/18 05:25 Magnesium 2.0 mg/dL (1.9-2.7) 05/07/18 05:25 Total Bilirubin 0.3 mg/dL (0.3-1.0) 05/04/18 06:00 AST 14 U/L (13-39) 05/04/18 06:00 ALT 17 U/L (7-52) 05/04/18 06:00 Alkaline Phosphatase 88 U/L (34-104) 05/04/18 06:00 Creatine Kinase 131 U/L (30-223) 05/03/18 15:10 Troponin I 0.01 ng/mL (0.01-0.05) 05/03/18 15:10 B-Natriuretic Peptide 116.0 pg/mL (5.0-100.0) H 05/03/18 15:10 Total Protein 6.5 gm/dL (6.0-8.3) 05/04/18 06:00 Albumin 3.5 gm/dL (4.2-5.5) L 05/04/18 06:00 Globulin 3.0 gm/dL 05/04/18 06:00 Albumin/Globulin Ratio 1.2 (1.0-1.8) 05/04/18 06:00 Triglycerides 157 mg/dL (<150) H 05/04/18 06:00 Cholesterol 93 mg/dL (<200) 05/04/18 06:00 LDL Cholesterol Direct 42 mg/dL (75-193) L 05/04/18 06:00 HDL Cholesterol 29 mg/dL (23-92) 05/04/18 06:00 Prostate Specific Ag 1.7 ng/mL (0.0-4.0) 05/06/18 06:06 Free T4 1.27 ng/dL (0.82-1.77) 05/06/18 06:06 Free T3 2.6 pg/mL (2.0-4.4) 05/06/18 06:06 TSH 6.87 uIU/ml (0.34-5.60) H 05/04/18 06:00 Urine Source [place] 05/07/18 08:20 Urine Color RED 05/07/18 08:20 Urine Clarity CLOUDY (CLEAR) 05/07/18 08:20 Urine pH 6.5 (4.6 - 8.0) 05/07/18 08:20 Ur Specific [place] 1.020 (1.005-1.030) 05/07/18 08:20 Urine Protein >300 mg/dL (NEGATIVE) H 05/07/18 08:20 Urine Glucose (UA) NEGATIVE mg/dL (NEGATIVE) 05/07/18 08:20 Urine Ketones NEGATIVE mg/dL (NEGATIVE) 05/07/18 08:20 Urine Blood LARGE (NEGATIVE) H 05/07/18 08:20 Urine Nitrate POSITIVE (NEGATIVE) H 05/07/18 08:20 Urine Bilirubin NEGATIVE (NEGATIVE) 05/07/18 08:20 Urine Urobilinogen 1.0 E.U./dL (0.2 - 1.0) 05/07/18 08:20 Ur Leukocyte Esterase SMALL (NEGATIVE) H 05/07/18 08:20 Urine RBC >100 /hpf (0-5) H 05/07/18 08:20 Urine WBC 2-5 /hpf (0-5) 05/07/18 08:20 Ur Epithelial Cells RARE /lpf (FEW) 05/07/18 08:20 Urine Bacteria MODERATE /hpf (NONE SEEN) H 05/07/18 08:20 Ur Random Sodium 140 mmol/L 05/07/18 08:20 Urine Creatinine 58.0 mg/dl (39.0-259.0) 05/07/18 08:20 - Physical Exam Vitals and I&O: Vital Signs Temp 98.0 F 05/08/18 08:05 Pulse 86 05/08/18 08:47 Resp 18 05/08/18 08:05 BP 130/75 05/08/18 08:47 Pulse Ox 100 05/08/18 08:05 Intake & Output 05/07/18 05/08/18 05/08/18 18:59 06:59 18:59 Intake Total 600 50 Output Total 860 Balance -260 50 Weight (lbs) 101.151 kg Intake: Intake, IV Amount 50 [id number] 1 gm In 50 Sodium Chloride 0.9% 50 ml @ 100 mls/hr IV Q24HR@ 2100 [facility] Rx#:[id number] Oral 600 Output: Urine 860 Other: # Voids 3 Weight Source Bedscale Active Medications: Current Medications Acetaminophen (Tylenol) 650 mg PO Q4H PRN PRN Reason: Pain or Fever >101 Stop: 07/02/18 21:01 Last Admin: 05/08/18 05:00 Dose: 650 mg Acetaminophen/Codeine Phosphate (Tylenol W/Codeine #3) 1 tab PO Q8H PRN PRN Reason: FOR PAIN IF TYLENOL INEFFECTIV Stop: 07/02/18 21:01 Last Admin: 05/08/18 08:45 Dose: 1 tab Al Hydrox/Mg Hydrox/Simethicone (Maalox) 30 ml PO Q4HR PRN PRN Reason: Heartburn Stop: 07/03/18 20:44 Last Admin: 05/04/18 22:23 Dose: 30 ml Allopurinol (Zyloprim) 100 mg PO DAILY [facility] Stop: 07/03/18 08:59 Last Admin: 05/08/18 08:46 Dose: 100 mg Amlodipine Besylate (Norvasc) 10 mg PO DAILY [facility] Stop: 07/03/18 08:59 Last Admin: 05/08/18 08:47 Dose: 10 mg Atorvastatin Calcium (Lipitor) 40 mg PO HS [facility] Stop: 07/02/18 22:59 Last Admin: 05/07/18 20:14 Dose: 40 mg Bisacodyl (Dulcolax 10 Mg Supp) 10 mg RC DAILY PRN PRN Reason: IF MOM INEFFECTIVE Stop: 07/02/18 21:01 Carvedilol (Coreg) 12.5 mg PO BID [facility] Stop: 07/03/18 08:59 Last Admin: 05/08/18 08:47 Dose: 12.5 mg Diphenhydramine HCl (Benadryl) 25 mg PO Q8HR [facility] Stop: 07/03/18 04:59 Last Admin: 05/08/18 04:59 Dose: 25 mg Docusate Sodium (Colace) 100 mg PO BID [facility] Stop: 07/03/18 08:59 Last Admin: 05/08/18 08:46 Dose: Not Given Gabapentin (Neurontin) 300 mg PO DAILY [facility] Stop: 07/03/18 08:59 Last Admin: 05/08/18 08:46 Dose: 300 mg Guaifenesin/Dextromethorphan (Robitussin Dm) 10 ml PO Q6H PRN PRN Reason: Cough Stop: 07/02/18 21:01 Last Admin: 05/07/18 20:14 Dose: 10 ml Sodium Chloride (Nacl 0.45%) 1,000 mls @ 50 mls/hr IV .Q20H [facility] Stop: 07/02/18 22:14 Last Admin: 05/07/18 17:17 Dose: 50 mls/hr Ceftriaxone Sodium 1 gm/ (Sodium Chloride) 50 mls @ 100 mls/hr IV Q24HR@2100 [facility] Stop: 07/06/18 20:59 Last Infusion: 05/07/18 21:53 Dose: Infused Insulin Aspart (Novolog Insulin Sliding Scale) 0 units SUBQ Q6HR [facility]; Protocol Stop: 07/03/18 00:00 Last Admin: 05/08/18 07:06 Dose: Not Given Lisinopril (Zestril) 5 mg PO DAILY [facility] Stop: 07/03/18 08:59 Last Admin: 05/08/18 08:46 Dose: 5 mg Loperamide HCl (Imodium) 2 mg PO Q6H PRN PRN Reason: Diarrhea Stop: 07/02/18 21:01 Magnesium Hydroxide (Milk Of Magnesia) 30 ml PO HS PRN PRN Reason: Constipation Stop: 07/02/18 21:01 Meclizine HCl (Antivert) 12.5 mg PO Q8H PRN PRN Reason: Dizziness Stop: 07/04/18 15:54 Metformin HCl (Glucophage) 500 mg PO BID [facility] Stop: 07/03/18 08:59 Last Admin: 05/08/18 08:57 Dose: 500 mg Miscellaneous (Solifenacin Succinate [Vesicare]) 5 mg PO DAILY [facility] Stop: 07/03/18 08:59 Multivitamins/Vitamin C (Theragran) 1 tab PO DAILY [facility] Stop: 07/03/18 08:59 Last Admin: 05/08/18 08:45 Dose: 1 tab Pantoprazole Sodium (Protonix) 40 mg IVP DAILY [facility] Stop: 07/04/18 03:29 Last Admin: 05/08/18 08:46 Dose: 40 mg Psyllium Hydrophilic Mucilloid (Metamucil) 1 pkt PO DAILY PRN PRN Reason: BOWEL MANAGEMENT Stop: 07/02/18 21:01 Sodium Phosphate (Fleet Enema) 135 ml RC Q48H PRN PRN Reason: IF DULCOLAX INEFFECTIVE Stop: 07/02/18 21:01 Zolpidem Tartrate (Ambien) 5 mg PO HS PRN PRN Reason: Insomnia Stop: 07/02/18 21:01 Last Admin: 05/07/18 00:13 Dose: 5 mg General: Alert, Cooperative, No acute distress HEENT: Atraumatic, Mucous membr. moist/pink Neck: Supple, +2 carotid pulse wo bruit Cardiovascular: Regular rate, Normal S1, Normal S2 Lungs: Clear to auscultation Abdomen: Bowel sounds, Soft, Obese, no Tender Extremities: no Edema Neurological: Normal tone, Sensation intact, Cranial nerves 3-12 NL Skin: no Rash Psych/Mental Status: Mood NL Assessment/Plan - Problem List Patient Problems: All Active Problems Anemia (Acute) D64.9 CAD (coronary artery disease) (Acute) I25.10 Gastroesophageal reflux disease (Acute) K21.9 Gout (Acute) M10.9 HTN (hypertension) (Acute) I10 Hyperlipidemia (Acute) E78.5 Neuropathy (Acute) G62.9 Osteoarthritis (Acute) M19.90 Vertigo (Acute) R42 - Assessment Assessment: 68 MALE WITH ANEMIA EGD SHOWED MILD ESOPHAGITIS AND GASTRITIS COLO SHOWED COLON POLYPS BX RESULTS D/W PATHOLOGIST 1.CONT PROTONIX 2.REPEAT COLO IN 3 YRS 3.WILL SEE NEEDED; CALL IF QUESTIONS
--- NOTE | 2018-05-08 09:24 | General Progress Note ---
Subjective - Review of Systems Service Date: 05/08/18 Events since last encounter: awake hemeaturia awaiting cysto Objective - Results Result Diagrams: 05/06/18 06:06 05/07/18 05:25 Recent Labs: Laboratory Last Values WBC 9.0 Th/cmm (4.8-10.8) 05/06/18 06:06 RBC 3.86 Mil/cmm (3.80-5.80) 05/06/18 06:06 Hgb 11.6 gm/dL (12-16) L 05/06/18 06:06 Hct 34.8 % (41.0-60) L 05/06/18 06:06 MCV 90.3 fl (80-99) 05/06/18 06:06 MCH 30.1 pg (27.0-31.0) 05/06/18 06:06 MCHC Differential 33.4 pg (28.0-36.0) 05/06/18 06:06 RDW 14.0 % (11.5-20.0) 05/06/18 06:06 Plt Count 136 Th/cmm (150-400) L 05/06/18 06:06 MPV 10.5 fl 05/06/18 06:06 Neutrophils % 66.5 % (40.0-80.0) 05/06/18 06:06 Lymphocytes % 22.2 % (20.0-50.0) 05/06/18 06:06 Monocytes % 7.4 % (2.0-10.0) 05/06/18 06:06 Eosinophils % 3.0 % (0.0-5.0) 05/06/18 06:06 Basophils % 0.9 % (0.0-2.0) 05/06/18 06:06 Eos Smear Source URINE 05/07/18 08:20 Eos Smear Total Cells FEW EOSINOPHILS SEEN (NONE SEEN) 05/07/18 08:20 PT 11.1 SECONDS (9.5-11.5) 05/06/18 06:06 INR 1.07 (0.5-1.4) 05/06/18 06:06 Sodium 139 mEq/L (136-145) 05/07/18 05:25 Potassium 3.8 mEq/L (3.5-5.1) 05/07/18 05:25 Chloride 107 mEq/L (98-107) 05/07/18 05:25 Carbon Dioxide 27.0 mEq/L (21.0-31.0) 05/07/18 05:25 Anion Gap 8.8 (7.0-16.0) 05/07/18 05:25 BUN 16 mg/dL (7-25) 05/07/18 05:25 Creatinine 1.2 mg/dL (0.7-1.3) 05/07/18 05:25 Est GFR ( Amer) > 60.0 ml/min (>90) 05/07/18 05:25 Est GFR (Non-Af Amer) > 60.0 ml/min 05/07/18 05:25 BUN/Creatinine Ratio 13.3 05/07/18 05:25 Glucose 154 mg/dL (70-105) H 05/07/18 05:25 POC Glucose 150 MG/DL (70 - 105) H 05/08/18 07:04 Hemoglobin A1c % 7.6 % (4.0-6.0) H 05/03/18 15:10 Uric Acid 6.0 mg/dL (4.4-7.6) 05/06/18 06:06 Calcium 8.9 mg/dL (8.6-10.3) 05/07/18 05:25 Phosphorus 3.7 mg/dL (2.5-5.0) 05/07/18 05:25 Magnesium 2.0 mg/dL (1.9-2.7) 05/07/18 05:25 Total Bilirubin 0.3 mg/dL (0.3-1.0) 05/04/18 06:00 AST 14 U/L (13-39) 05/04/18 06:00 ALT 17 U/L (7-52) 05/04/18 06:00 Alkaline Phosphatase 88 U/L (34-104) 05/04/18 06:00 Creatine Kinase 131 U/L (30-223) 05/03/18 15:10 Troponin I 0.01 ng/mL (0.01-0.05) 05/03/18 15:10 B-Natriuretic Peptide 116.0 pg/mL (5.0-100.0) H 05/03/18 15:10 Total Protein 6.5 gm/dL (6.0-8.3) 05/04/18 06:00 Albumin 3.5 gm/dL (4.2-5.5) L 05/04/18 06:00 Globulin 3.0 gm/dL 05/04/18 06:00 Albumin/Globulin Ratio 1.2 (1.0-1.8) 05/04/18 06:00 Triglycerides 157 mg/dL (<150) H 05/04/18 06:00 Cholesterol 93 mg/dL (<200) 05/04/18 06:00 LDL Cholesterol Direct 42 mg/dL (75-193) L 05/04/18 06:00 HDL Cholesterol 29 mg/dL (23-92) 05/04/18 06:00 Prostate Specific Ag 1.7 ng/mL (0.0-4.0) 05/06/18 06:06 Free T4 1.27 ng/dL (0.82-1.77) 05/06/18 06:06 Free T3 2.6 pg/mL (2.0-4.4) 05/06/18 06:06 TSH 6.87 uIU/ml (0.34-5.60) H 05/04/18 06:00 Urine Source [place] 05/07/18 08:20 Urine Color RED 05/07/18 08:20 Urine Clarity CLOUDY (CLEAR) 05/07/18 08:20 Urine pH 6.5 (4.6 - 8.0) 05/07/18 08:20 Ur Specific [place] 1.020 (1.005-1.030) 05/07/18 08:20 Urine Protein >300 mg/dL (NEGATIVE) H 05/07/18 08:20 Urine Glucose (UA) NEGATIVE mg/dL (NEGATIVE) 05/07/18 08:20 Urine Ketones NEGATIVE mg/dL (NEGATIVE) 05/07/18 08:20 Urine Blood LARGE (NEGATIVE) H 05/07/18 08:20 Urine Nitrate POSITIVE (NEGATIVE) H 05/07/18 08:20 Urine Bilirubin NEGATIVE (NEGATIVE) 05/07/18 08:20 Urine Urobilinogen 1.0 E.U./dL (0.2 - 1.0) 05/07/18 08:20 Ur Leukocyte Esterase SMALL (NEGATIVE) H 05/07/18 08:20 Urine RBC >100 /hpf (0-5) H 05/07/18 08:20 Urine WBC 2-5 /hpf (0-5) 05/07/18 08:20 Ur Epithelial Cells RARE /lpf (FEW) 05/07/18 08:20 Urine Bacteria MODERATE /hpf (NONE SEEN) H 05/07/18 08:20 Ur Random Sodium 140 mmol/L 05/07/18 08:20 Urine Creatinine 58.0 mg/dl (39.0-259.0) 05/07/18 08:20 - Physical Exam Vitals and I&O: Vital Signs Temp 98.0 F 05/08/18 08:05 Pulse 86 05/08/18 08:47 Resp 18 05/08/18 08:05 BP 130/75 05/08/18 08:47 Pulse Ox 100 05/08/18 08:05 Intake & Output 05/07/18 05/08/18 05/08/18 18:59 06:59 18:59 Intake Total 600 50 Output Total 860 Balance -260 50 Weight (lbs) 101.151 kg Intake: Intake, IV Amount 50 [id number] 1 gm In 50 Sodium Chloride 0.9% 50 ml @ 100 mls/hr IV Q24HR@ 2100 [facility] Rx#:[id number] Oral 600 Output: Urine 860 Other: # Voids 3 Weight Source Bedscale Active Medications: Current Medications Acetaminophen (Tylenol) 650 mg PO Q4H PRN PRN Reason: Pain or Fever >101 Stop: 07/02/18 21:01 Last Admin: 05/08/18 05:00 Dose: 650 mg Acetaminophen/Codeine Phosphate (Tylenol W/Codeine #3) 1 tab PO Q8H PRN PRN Reason: FOR PAIN IF TYLENOL INEFFECTIV Stop: 07/02/18 21:01 Last Admin: 05/08/18 08:45 Dose: 1 tab Al Hydrox/Mg Hydrox/Simethicone (Maalox) 30 ml PO Q4HR PRN PRN Reason: Heartburn Stop: 07/03/18 20:44 Last Admin: 05/04/18 22:23 Dose: 30 ml Allopurinol (Zyloprim) 100 mg PO DAILY [facility] Stop: 07/03/18 08:59 Last Admin: 05/08/18 08:46 Dose: 100 mg Amlodipine Besylate (Norvasc) 10 mg PO DAILY [facility] Stop: 07/03/18 08:59 Last Admin: 05/08/18 08:47 Dose: 10 mg Atorvastatin Calcium (Lipitor) 40 mg PO HS [facility] Stop: 07/02/18 22:59 Last Admin: 05/07/18 20:14 Dose: 40 mg Bisacodyl (Dulcolax 10 Mg Supp) 10 mg RC DAILY PRN PRN Reason: IF MOM INEFFECTIVE Stop: 07/02/18 21:01 Carvedilol (Coreg) 12.5 mg PO BID [facility] Stop: 07/03/18 08:59 Last Admin: 05/08/18 08:47 Dose: 12.5 mg Diphenhydramine HCl (Benadryl) 25 mg PO Q8HR ST[facility]ANO Stop: 07/03/18 04:59 Last Admin: 05/08/18 04:59 Dose: 25 mg Docusate Sodium (Colace) 100 mg PO BID [facility] Stop: 07/03/18 08:59 Last Admin: 05/08/18 08:46 Dose: Not Given Gabapentin (Neurontin) 300 mg PO DAILY [facility] Stop: 07/03/18 08:59 Last Admin: 05/08/18 08:46 Dose: 300 mg Guaifenesin/Dextromethorphan (Robitussin Dm) 10 ml PO Q6H PRN PRN Reason: Cough Stop: 07/02/18 21:01 Last Admin: 05/07/18 20:14 Dose: 10 ml Sodium Chloride (Nacl 0.45%) 1,000 mls @ 50 mls/hr IV .Q20H [facility] Stop: 07/02/18 22:14 Last Admin: 05/07/18 17:17 Dose: 50 mls/hr Ceftriaxone Sodium 1 gm/ (Sodium Chloride) 50 mls @ 100 mls/hr IV Q24HR@2100 [facility] Stop: 07/06/18 20:59 Last Infusion: 05/07/18 21:53 Dose: Infused Insulin Aspart (Novolog Insulin Sliding Scale) 0 units SUBQ Q6HR [facility]; Protocol Stop: 07/03/18 00:00 Last Admin: 05/08/18 07:06 Dose: Not Given Lisinopril (Zestril) 5 mg PO DAILY [facility] Stop: 07/03/18 08:59 Last Admin: 05/08/18 08:46 Dose: 5 mg Loperamide HCl (Imodium) 2 mg PO Q6H PRN PRN Reason: Diarrhea Stop: 07/02/18 21:01 Magnesium Hydroxide (Milk Of Magnesia) 30 ml PO HS PRN PRN Reason: Constipation Stop: 07/02/18 21:01 Meclizine HCl (Antivert) 12.5 mg PO Q8H PRN PRN Reason: Dizziness Stop: 07/04/18 15:54 Metformin HCl (Glucophage) 500 mg PO BID [facility] Stop: 07/03/18 08:59 Last Admin: 05/08/18 08:57 Dose: 500 mg Miscellaneous (Solifenacin Succinate [Vesicare]) 5 mg PO DAILY [facility] Stop: 07/03/18 08:59 Multivitamins/Vitamin C (Theragran) 1 tab PO DAILY [facility] Stop: 07/03/18 08:59 Last Admin: 05/08/18 08:45 Dose: 1 tab Pantoprazole Sodium (Protonix) 40 mg IVP DAILY [facility] Stop: 07/04/18 03:29 Last Admin: 05/08/18 08:46 Dose: 40 mg Psyllium Hydrophilic Mucilloid (Metamucil) 1 pkt PO DAILY PRN PRN Reason: BOWEL MANAGEMENT Stop: 07/02/18 21:01 Sodium Phosphate (Fleet Enema) 135 ml RC Q48H PRN PRN Reason: IF DULCOLAX INEFFECTIVE Stop: 07/02/18 21:01 Zolpidem Tartrate (Ambien) 5 mg PO HS PRN PRN Reason: Insomnia Stop: 07/02/18 21:01 Last Admin: 05/07/18 00:13 Dose: 5 mg General: Alert, Cooperative, No acute distress HEENT: Atraumatic, Mucous membr. moist/pink Neck: Supple, +2 carotid pulse wo bruit Cardiovascular: Regular rate, Normal S1, Normal S2 Lungs: Clear to auscultation Abdomen: Bowel sounds, Soft, Obese, no Tender Extremities: no Edema Neurological: Normal tone, Sensation intact, Cranial nerves 3-12 NL Skin: no Rash Psych/Mental Status: Mood NL Assessment/Plan - Problem List Patient Problems: All Active Problems Anemia (Acute) D64.9 CAD (coronary artery disease) (Acute) I25.10 Gastroesophageal reflux disease (Acute) K21.9 Gout (Acute) M10.9 HTN (hypertension) (Acute) I10 Hyperlipidemia (Acute) E78.5 Neuropathy (Acute) G62.9 Osteoarthritis (Acute) M19.90 Vertigo (Acute) R42 - Plan Plan: will monitor Nutritional Asmnt/Malnutr-PDOC - Dietary Evaluation Malnutrition Findings (Please click <Entered> for more info): Nutritional Asmnt/Malnutrition Start: 05/07/18 17: 24 Text: Status: Complete Freq: Protocol: Document 05/07/18 17:24 NICHOLAS (Rec: 05/07/18 17:37 ALISA [id number]) Nutritional Asmnt/Malnutrition Patient General Information Nutritional Screening Moderate Risk Diagnosis dizziness, vertigo, TIA cardiac arrythmias anemi Pertinent Medical Hx/Surgical Hx HTN, OA, gout, hyperlipidemia, CAD, GERD, neuropathy, DM Subjective Information Pt had EGD and colonoscopy yesterday 05/06. Per EMR, PO intake 75% on full liquid diet . Diet advances to regular at dinner today. Current Diet Order/ Nutrition Support full liquid Pertinent Medications colace, novolog, glucophage, theragran, protonix, nacl 0.45 % Pertinent Labs 05/07 glucose 154, POC 149-277 Nutritional Hx/Data Height 1.65 m Height (Calculated Centimeters) 165.1 Current Weight (lbs) 101.151 kg Weight (Calculated Kilograms) 101.2 Weight (Calculated Grams) 412452.1 [place] Body Weight 136 Body Mass Index (BMI) 37.0 Weight Status Obese GI Symptoms GI Symptoms None Last BM 05/06 Difficult in: None Skin Integrity/Comment: intact Current %PO Good (75-100%) Estimated Nutritional Goals BEE in Kcals: Adj wt of IBW Calories/Kcals/Kg 25-30 Kcals Calculated [id number] Protein: Adj wt of IBW Protein g/k-1.2 Protein Calculated 72-84 Fluid: ml 1800-2160ml (1ml/kcal) Nutritional Problem 1. Problem Problem altered nutrition related lab Etiology hx of DM Signs/Symptoms: glucose 154, POC 149-277 Malnutrition Alert Is there a minimum of two criteria No selected? Query Text:Check all the applicable criteria. A minimum of two criteria are recommended for diagnosis of either severe or non-severe malnutrition. Malnutrition Related to Morbid Obesity Malnutrition related to morbid obesity No Intervention/Recommendation Comments 1. Recomend CCHO diet for better glycemic control 2. Monitor PO intake, wt, labs and skin integrity 3. F/U as moderate risk in 3-5 days, 05/10-05/12 Expected Outcomes/Goals Expected Outcomes/Goals 1. PO intake to meet at least 75% of nutritional needs. 2. Wt stability, skin to remain intact, labs to approach WNL.
--- NOTE | 2018-05-08 11:47 | General Progress Note ---
Subjective - Review of Systems Service Date: 05/08/18 Subjective: alert, verbal, discomfort urethra Objective - Results Result Diagrams: 05/06/18 06:06 05/07/18 05:25 Recent Labs: Laboratory Last Values WBC 9.0 Th/cmm (4.8-10.8) 05/06/18 06:06 RBC 3.86 Mil/cmm (3.80-5.80) 05/06/18 06:06 Hgb 11.6 gm/dL (12-16) L 05/06/18 06:06 Hct 34.8 % (41.0-60) L 05/06/18 06:06 MCV 90.3 fl (80-99) 05/06/18 06:06 MCH 30.1 pg (27.0-31.0) 05/06/18 06:06 MCHC Differential 33.4 pg (28.0-36.0) 05/06/18 06:06 RDW 14.0 % (11.5-20.0) 05/06/18 06:06 Plt Count 136 Th/cmm (150-400) L 05/06/18 06:06 MPV 10.5 fl 05/06/18 06:06 Neutrophils % 66.5 % (40.0-80.0) 05/06/18 06:06 Lymphocytes % 22.2 % (20.0-50.0) 05/06/18 06:06 Monocytes % 7.4 % (2.0-10.0) 05/06/18 06:06 Eosinophils % 3.0 % (0.0-5.0) 05/06/18 06:06 Basophils % 0.9 % (0.0-2.0) 05/06/18 06:06 Eos Smear Source URINE 05/07/18 08:20 Eos Smear Total Cells FEW EOSINOPHILS SEEN (NONE SEEN) 05/07/18 08:20 PT 11.1 SECONDS (9.5-11.5) 05/06/18 06:06 INR 1.07 (0.5-1.4) 05/06/18 06:06 Sodium 139 mEq/L (136-145) 05/07/18 05:25 Potassium 3.8 mEq/L (3.5-5.1) 05/07/18 05:25 Chloride 107 mEq/L (98-107) 05/07/18 05:25 Carbon Dioxide 27.0 mEq/L (21.0-31.0) 05/07/18 05:25 Anion Gap 8.8 (7.0-16.0) 05/07/18 05:25 BUN 16 mg/dL (7-25) 05/07/18 05:25 Creatinine 1.2 mg/dL (0.7-1.3) 05/07/18 05:25 Est GFR ( Amer) > 60.0 ml/min (>90) 05/07/18 05:25 Est GFR (Non-Af Amer) > 60.0 ml/min 05/07/18 05:25 BUN/Creatinine Ratio 13.3 05/07/18 05:25 Glucose 154 mg/dL (70-105) H 05/07/18 05:25 POC Glucose 150 MG/DL (70 - 105) H 05/08/18 07:04 Hemoglobin A1c % 7.6 % (4.0-6.0) H 05/03/18 15:10 Uric Acid 6.0 mg/dL (4.4-7.6) 05/06/18 06:06 Calcium 8.9 mg/dL (8.6-10.3) 05/07/18 05:25 Phosphorus 3.7 mg/dL (2.5-5.0) 05/07/18 05:25 Magnesium 2.0 mg/dL (1.9-2.7) 05/07/18 05:25 Total Bilirubin 0.3 mg/dL (0.3-1.0) 05/04/18 06:00 AST 14 U/L (13-39) 05/04/18 06:00 ALT 17 U/L (7-52) 05/04/18 06:00 Alkaline Phosphatase 88 U/L (34-104) 05/04/18 06:00 Creatine Kinase 131 U/L (30-223) 05/03/18 15:10 Troponin I 0.01 ng/mL (0.01-0.05) 05/03/18 15:10 B-Natriuretic Peptide 116.0 pg/mL (5.0-100.0) H 05/03/18 15:10 Total Protein 6.5 gm/dL (6.0-8.3) 05/04/18 06:00 Albumin 3.5 gm/dL (4.2-5.5) L 05/04/18 06:00 Globulin 3.0 gm/dL 05/04/18 06:00 Albumin/Globulin Ratio 1.2 (1.0-1.8) 05/04/18 06:00 Triglycerides 157 mg/dL (<150) H 05/04/18 06:00 Cholesterol 93 mg/dL (<200) 05/04/18 06:00 LDL Cholesterol Direct 42 mg/dL (75-193) L 05/04/18 06:00 HDL Cholesterol 29 mg/dL (23-92) 05/04/18 06:00 Prostate Specific Ag 1.7 ng/mL (0.0-4.0) 05/06/18 06:06 Free T4 1.27 ng/dL (0.82-1.77) 05/06/18 06:06 Free T3 2.6 pg/mL (2.0-4.4) 05/06/18 06:06 TSH 6.87 uIU/ml (0.34-5.60) H 05/04/18 06:00 Urine Source [place] 05/07/18 08:20 Urine Color RED 05/07/18 08:20 Urine Clarity CLOUDY (CLEAR) 05/07/18 08:20 Urine pH 6.5 (4.6 - 8.0) 05/07/18 08:20 Ur Specific [place] 1.020 (1.005-1.030) 05/07/18 08:20 Urine Protein >300 mg/dL (NEGATIVE) H 05/07/18 08:20 Urine Glucose (UA) NEGATIVE mg/dL (NEGATIVE) 05/07/18 08:20 Urine Ketones NEGATIVE mg/dL (NEGATIVE) 05/07/18 08:20 Urine Blood LARGE (NEGATIVE) H 05/07/18 08:20 Urine Nitrate POSITIVE (NEGATIVE) H 05/07/18 08:20 Urine Bilirubin NEGATIVE (NEGATIVE) 05/07/18 08:20 Urine Urobilinogen 1.0 E.U./dL (0.2 - 1.0) 05/07/18 08:20 Ur Leukocyte Esterase SMALL (NEGATIVE) H 05/07/18 08:20 Urine RBC >100 /hpf (0-5) H 05/07/18 08:20 Urine WBC 2-5 /hpf (0-5) 05/07/18 08:20 Ur Epithelial Cells RARE /lpf (FEW) 05/07/18 08:20 Urine Bacteria MODERATE /hpf (NONE SEEN) H 05/07/18 08:20 Ur Random Sodium 140 mmol/L 05/07/18 08:20 Urine Creatinine 58.0 mg/dl (39.0-259.0) 05/07/18 08:20 - Physical Exam Vitals and I&O: Vital Signs Temp 98.0 F 05/08/18 08:05 Pulse 86 05/08/18 08:47 Resp 18 05/08/18 08:05 BP 130/75 05/08/18 08:47 Pulse Ox 100 05/08/18 08:05 Intake & Output 05/07/18 05/08/18 05/08/18 18:59 06:59 18:59 Intake Total 600 50 Output Total 860 Balance -260 50 Weight (lbs) 101.151 kg Intake: Intake, IV Amount 50 cefTRIAXone 1 gm In 50 Sodium Chloride 0.9% 50 ml @ 100 mls/hr IV Q24HR@ 2100 [facility] Rx#:[id number] Oral 600 Output: Urine 860 Other: # Voids 3 Weight Source Bedscale Active Medications: Current Medications Acetaminophen (Tylenol) 650 mg PO Q4H PRN PRN Reason: Pain or Fever >101 Stop: 07/02/18 21:01 Last Admin: 05/08/18 05:00 Dose: 650 mg Acetaminophen/Codeine Phosphate (Tylenol W/Codeine #3) 1 tab PO Q8H PRN PRN Reason: FOR PAIN IF TYLENOL INEFFECTIV Stop: 07/02/18 21:01 Last Admin: 05/08/18 08:45 Dose: 1 tab Al Hydrox/Mg Hydrox/Simethicone (Maalox) 30 ml PO Q4HR PRN PRN Reason: Heartburn Stop: 07/03/18 20:44 Last Admin: 05/04/18 22:23 Dose: 30 ml Allopurinol (Zyloprim) 100 mg PO DAILY [facility] Stop: 07/03/18 08:59 Last Admin: 05/08/18 08:46 Dose: 100 mg Amlodipine Besylate (Norvasc) 10 mg PO DAILY [facility] Stop: 07/03/18 08:59 Last Admin: 05/08/18 08:47 Dose: 10 mg Atorvastatin Calcium (Lipitor) 40 mg PO HS [facility] Stop: 07/02/18 22:59 Last Admin: 05/07/18 20:14 Dose: 40 mg Bisacodyl (Dulcolax 10 Mg Supp) 10 mg RC DAILY PRN PRN Reason: IF MOM INEFFECTIVE Stop: 07/02/18 21:01 Carvedilol (Coreg) 12.5 mg PO BID [facility] Stop: 07/03/18 08:59 Last Admin: 05/08/18 08:47 Dose: 12.5 mg Diphenhydramine HCl (Benadryl) 25 mg PO Q8HR [facility] Stop: 07/03/18 04:59 Last Admin: 05/08/18 04:59 Dose: 25 mg Docusate Sodium (Colace) 100 mg PO BID [facility] Stop: 07/03/18 08:59 Last Admin: 05/08/18 08:46 Dose: Not Given Gabapentin (Neurontin) 300 mg PO DAILY [facility] Stop: 07/03/18 08:59 Last Admin: 05/08/18 08:46 Dose: 300 mg Guaifenesin/Dextromethorphan (Robitussin Dm) 10 ml PO Q6H PRN PRN Reason: Cough Stop: 07/02/18 21:01 Last Admin: 05/07/18 20:14 Dose: 10 ml Sodium Chloride (Nacl 0.45%) 1,000 mls @ 50 mls/hr IV .Q20H [facility] Stop: 07/02/18 22:14 Last Admin: 05/07/18 17:17 Dose: 50 mls/hr Ceftriaxone Sodium 1 gm/ (Sodium Chloride) 50 mls @ 100 mls/hr IV Q24HR@2100 [facility] Stop: 07/06/18 20:59 Last Infusion: 05/07/18 21:53 Dose: Infused Insulin Aspart (Novolog Insulin Sliding Scale) 0 units SUBQ Q6HR [facility]; Protocol Stop: 07/03/18 00:00 Last Admin: 05/08/18 07:06 Dose: Not Given Lisinopril (Zestril) 5 mg PO DAILY [facility] Stop: 07/03/18 08:59 Last Admin: 05/08/18 08:46 Dose: 5 mg Loperamide HCl (Imodium) 2 mg PO Q6H PRN PRN Reason: Diarrhea Stop: 07/02/18 21:01 Magnesium Hydroxide (Milk Of Magnesia) 30 ml PO HS PRN PRN Reason: Constipation Stop: 07/02/18 21:01 Meclizine HCl (Antivert) 12.5 mg PO Q8H PRN PRN Reason: Dizziness Stop: 07/04/18 15:54 Metformin HCl (Glucophage) 500 mg PO BID [facility] Stop: 07/03/18 08:59 Last Admin: 05/08/18 08:57 Dose: 500 mg Miscellaneous (Solifenacin Succinate [Vesicare]) 5 mg PO DAILY [facility] Stop: 07/03/18 08:59 Multivitamins/Vitamin C (Theragran) 1 tab PO DAILY [facility] Stop: 07/03/18 08:59 Last Admin: 05/08/18 08:45 Dose: 1 tab Pantoprazole Sodium (Protonix) 40 mg IVP DAILY [facility] Stop: 07/04/18 03:29 Last Admin: 05/08/18 08:46 Dose: 40 mg Psyllium Hydrophilic Mucilloid (Metamucil) 1 pkt PO DAILY PRN PRN Reason: BOWEL MANAGEMENT Stop: 07/02/18 21:01 Sodium Phosphate (Fleet Enema) 135 ml RC Q48H PRN PRN Reason: IF DULCOLAX INEFFECTIVE Stop: 07/02/18 21:01 Zolpidem Tartrate (Ambien) 5 mg PO HS PRN PRN Reason: Insomnia Stop: 07/02/18 21:01 Last Admin: 05/07/18 00:13 Dose: 5 mg General: Alert, Cooperative, No acute distress HEENT: Atraumatic, Mucous membr. moist/pink Neck: Supple, +2 carotid pulse wo bruit Cardiovascular: Regular rate, Normal S1, Normal S2 Lungs: Clear to auscultation Abdomen: Bowel sounds, Soft, Obese, no Tender Extremities: no Edema Neurological: Normal tone, Sensation intact, Cranial nerves 3-12 NL Skin: no Rash Psych/Mental Status: Mood NL Assessment/Plan - Problem List Patient Problems: All Active Problems Anemia (Acute) D64.9 CAD (coronary artery disease) (Acute) I25.10 Gastroesophageal reflux disease (Acute) K21.9 Gout (Acute) M10.9 HTN (hypertension) (Acute) I10 Hyperlipidemia (Acute) E78.5 Neuropathy (Acute) G62.9 Osteoarthritis (Acute) M19.90 Vertigo (Acute) R42 - Assessment Assessment: CKD B/L [place] 2/2 renal calculi BPH w/ bladder distension Occ. Vertigo BPPV Cholelithiais Subclinical Hypothyroidism T2DM w/ CKD Ess Htn w/ CKD Cx UTI Gross Hematuria 2/2 Plavix, trauma, calculi - Plan Plan: Lab - Result Diagrams 05/06/18 06:06 05/06/18 06:06 Current Medications Acetaminophen (Tylenol) 650 mg PO Q4H PRN PRN Reason: Pain or Fever >101 Stop: 07/02/18 21:01 Acetaminophen/Codeine Phosphate (Tylenol W/Codeine #3) 1 tab PO Q8H PRN PRN Reason: FOR PAIN IF TYLENOL INEFFECTIV Stop: 07/02/18 21:01 Al Hydrox/Mg Hydrox/Simethicone (Maalox) 30 ml PO Q4HR PRN PRN Reason: Heartburn Stop: 07/03/18 20:44 Last Admin: 05/04/18 22:23 Dose: 30 ml Allopurinol (Zyloprim) 100 mg PO DAILY [facility] Stop: 07/03/18 08:59 Last Admin: 05/06/18 08:51 Dose: Not Given Amlodipine Besylate (Norvasc) 10 mg PO DAILY [facility] Stop: 07/03/18 08:59 Last Admin: 05/06/18 08:51 Dose: Not Given Atorvastatin Calcium (Lipitor) 40 mg PO HS [facility] Stop: 07/02/18 22:59 Last Admin: 05/05/18 20:26 Dose: 40 mg Bisacodyl (Dulcolax 10 Mg Supp) 10 mg RC DAILY PRN PRN Reason: IF MOM INEFFECTIVE Stop: 07/02/18 21:01 Carvedilol (Coreg) 12.5 mg PO BID [facility] Stop: 07/03/18 08:59 Last Admin: 05/06/18 08:52 Dose: Not Given Clopidogrel Bisulfate (Plavix) 75 mg PO DAILY [facility] Stop: 07/03/18 08:59 Last Admin: 05/06/18 08:52 Dose: Not Given Diphenhydramine HCl (Benadryl) 25 mg PO Q8HR [facility] Stop: 07/03/18 04:59 Last Admin: 05/06/18 04:52 Dose: Not Given Docusate Sodium (Colace) 100 mg PO BID [facility] Stop: 07/03/18 08:59 Last Admin: 05/06/18 08:52 Dose: Not Given Gabapentin (Neurontin) 300 mg PO DAILY [facility] Stop: 07/03/18 08:59 Last Admin: 05/06/18 08:52 Dose: Not Given Guaifenesin/Dextromethorphan (Robitussin Dm) 10 ml PO Q6H PRN PRN Reason: Cough Stop: 07/02/18 21:01 Last Admin: 05/05/18 21:52 Dose: 10 ml Sodium Chloride (Nacl 0.45%) 1,000 mls @ 50 mls/hr IV .Q20H [facility] Stop: 07/02/18 22:14 Last Admin: 05/05/18 13:42 Dose: 50 mls/hr Insulin Aspart (Novolog Insulin Sliding Scale) 0 units SUBQ Q6HR [facility]; Protocol Stop: 07/03/18 00:00 Last Admin: 05/06/18 06:41 Dose: Not Given Lisinopril (Zestril) 5 mg PO DAILY [facility] Stop: 07/03/18 08:59 Last Admin: 05/06/18 08:52 Dose: Not Given Loperamide HCl (Imodium) 2 mg PO Q6H PRN PRN Reason: Diarrhea Stop: 07/02/18 21:01 Magnesium Hydroxide (Milk Of Magnesia) 30 ml PO HS PRN PRN Reason: Constipation Stop: 07/02/18 21:01 Meclizine HCl (Antivert) 12.5 mg PO Q8H PRN PRN Reason: Dizziness Stop: 07/04/18 15:54 Metformin HCl (Glucophage) 500 mg PO BID [facility] Stop: 07/03/18 08:59 Last Admin: 05/06/18 08:52 Dose: Not Given Miscellaneous (Solifenacin Succinate [Vesicare]) 5 mg PO DAILY [facility] Stop: 07/03/18 08:59 Multivitamins/Vitamin C (Theragran) 1 tab PO DAILY [facility] Stop: 07/03/18 08:59 Last Admin: 05/06/18 08:52 Dose: Not Given Pantoprazole Sodium (Protonix) 40 mg IVP DAILY [facility] Stop: 07/04/18 03:29 Last Admin: 05/06/18 11:10 Dose: Not Given Psyllium Hydrophilic Mucilloid (Metamucil) 1 pkt PO DAILY PRN PRN Reason: BOWEL MANAGEMENT Stop: 07/02/18 21:01 Sodium Phosphate (Fleet Enema) 135 ml RC Q48H PRN PRN Reason: IF DULCOLAX INEFFECTIVE Stop: 07/02/18 21:01 Zolpidem Tartrate (Ambien) 5 mg PO HS PRN PRN Reason: Insomnia Stop: 07/02/18 21:01 Last Admin: 05/05/18 00:01 Dose: 5 mg Lab - Result Diagrams 05/06/18 06:06 05/07/18 05:25 Kidney fnc much improved off Plavix, cystoscopy next wk flush [place] Cath 2/2 to Hematuria, discomfort start Rocephin prophylactically start [place] for pain, DC [place] per Urology Nutritional Asmnt/Malnutr-PDOC - Dietary Evaluation Malnutrition Findings (Please click <Entered> for more info): Nutritional Asmnt/Malnutrition Start: 05/07/18 17: 24 Text: Status: Complete Freq: Protocol: Document 05/07/18 17:24 LCHENG (Rec: 05/07/18 17:37 [email or web address] [id number]) Nutritional Asmnt/Malnutrition Patient General Information Nutritional Screening Moderate Risk Diagnosis dizziness, vertigo, TIA cardiac arrythmias anemi Pertinent Medical Hx/Surgical Hx HTN, OA, gout, hyperlipidemia, CAD, GERD, neuropathy, DM Subjective Information Pt had EGD and colonoscopy yesterday 05/06. Per EMR, PO intake 75% on full liquid diet . Diet advances to regular at dinner today. Current Diet Order/ Nutrition Support full liquid Pertinent Medications colace, novolog, glucophage, theragran, protonix, nacl 0.45 % Pertinent Labs 05/07 glucose 154, POC 149-277 Nutritional Hx/Data Height 1.65 m Height (Calculated Centimeters) 165.1 Current Weight (lbs) 101.151 kg Weight (Calculated Kilograms) 101.2 Weight (Calculated Grams) 540363.1 [place] Body Weight 136 Body Mass Index (BMI) 37.0 Weight Status Obese GI Symptoms GI Symptoms None Last BM 7/2 Difficult in: None Skin Integrity/Comment: intact Current %PO Good (75-100%) Estimated Nutritional Goals BEE in Kcals: Adj wt of IBW Calories/Kcals/Kg 25-30 Kcals Calculated 5143-1532 Protein: Adj wt of IBW Protein g/k-1.2 Protein Calculated 72-84 Fluid: ml 1800-2160ml (1ml/kcal) Nutritional Problem 1. Problem Problem altered nutrition related lab Etiology hx of DM Signs/Symptoms: glucose 154, POC 149-277 Malnutrition Alert Is there a minimum of two criteria No selected? Query Text:Check all the applicable criteria. A minimum of two criteria are recommended for diagnosis of either severe or non-severe malnutrition. Malnutrition Related to Morbid Obesity Malnutrition related to morbid obesity No Intervention/Recommendation Comments 1. Recomend [facility] diet for better glycemic control 2. Monitor PO intake, wt, labs and skin integrity 3. F/U as moderate risk in 3-5 days, 05/10-05/12 Expected Outcomes/Goals Expected Outcomes/Goals 1. PO intake to meet at least 75% of nutritional needs. 2. Wt stability, skin to remain intact, labs to approach WNL.
[2018-05-08] MEDS ORDERED: Hydrocodone/APAP 5mg/325mg Tab ONE (12:08)
[2018-05-08] MEDS: Hydrocodone/APAP 5mg/325mg Tab PO PRN ×3 (12:13→21:15)
[2018-05-08] MEDS ORDERED: Lidocaine 2% Gel 5 mL TP PRN (14:13)
[2018-05-08] MEDS: Sodium Chloride 0.45% 1,000 ML IV SCH (16:58)
[2018-05-08] MEDS: cefTRIAXone 1 GM in Sodium Chloride 0.9% 50 ML IV SCH (20:43)
[2018-05-08] MEDS: Atorvastatin Calcium 10 MG TAB PO SCH (20:43)
--- NOTE | 2018-05-08 21:37 | Progress Notes ---
DATE: 05/08/2018 UROLOGY PROGRESS NOTE SUBJECTIVE: The patient is complaining of pain in and around the penis and the catheter, which is to be expected from the Javier. The bleeding has subsided and the urine is more normal colored with occasional blood and occasional tiny clot. I have explained to him the discomfort associated with the Javier and that it would only be relieved after we remove it. Meanwhile, we will try some lidocaine jelly at the tip of the penis for some little benefit if they provide. I am trying to refrain from using anticholinergics, which will cause constipation to an already difficult situation. OBJECTIVE: VITAL SIGNS: Temperature 98.1, heart rate 81 and blood pressure 127/70. ABDOMEN: Massively obese, but soft. No tender spots. Javier, no blood. EXTREMITIES: No edema. Some pigmentation seen. LABORATORY DATA: Glucose 161, 150 and 177 on last three checks. No CBC was done today. No chemistries. His anticoagulant is on hold in anticipation of a cystoscopy and TURP planned for next week. IMPRESSION: 1. Acute urinary retention with a Javier now stable, but with discomfort. 2. Benign prostatic hypertrophy, most likely cause of retention, awaiting cystoscopy. 3. Bilateral hydronephrosis, probably improved with drainage of the kidneys. 4. History of gout, no recent activity. 5. History of gastrointestinal bleed, stable hemoglobin 6. History of coronary artery disease, no recent chest pain. 7. History of anemia, no recent blood transfusion. JOB# [id number]
[2018-05-09] MEDS: Hydrocodone/APAP 5mg/325mg Tab PO PRN ×4 (01:36→23:59)
[2018-05-09] MEDS: INSULIN ASPART SLIDING SCALE 100 UNITS/ML UNIT SUBQ SCH ×4 (05:56→23:49)
[2018-05-09] MEDS: Multivitamin Tab PO SCH (08:44)
[2018-05-09 09:05] LABS: % EOSINOPHILS 4.7 % (0.0-5.0); % LYMPHOCYTES 18.1 % (20.0-50.0); % MONOCYTES 7.4 % (2.0-10.0); % NEUTROPHILS 68.8 % (40.0-80.0); BASOPHILE ABSOLUTE 0.1 Th/cumm (0-0.2); EOSINOPHILE ABSOLUTE 0.5 Th/cmm (0.1-0.4); HEMATOCRIT 33.8 % (41.0-60); HEMOGLOBIN 11.4 gm/dL (12-16); LYMPHOCYTE ABSOLUTE 1.9 Th/cmm (1.5-3.0); MEAN CELL VOLUME 90.3 fl (80-99); MEAN CORPUSCULAR HEMOGLOBIN 30.4 pg (27.0-31.0); MEAN CORPUSCULAR HGB CONC 33.7 pg (28.0-36.0); MEAN PLATELET VOLUME 9.6 fl; MONOCYTE ABSOLUTE 0.8 Th/cmm (0.3-1.0); PLATELET COUNT 176 Th/cmm (150-400); RED BLOOD COUNT 3.75 Mil/cmm (3.80-5.80); RED CELL DISTRIBUTION WIDTH 13.8 % (11.5-20.0); WHITE BLOOD COUNT 10.3 Th/cmm (4.8-10.8)
[2018-05-09 09:23] LABS: ANION GAP 11.6 (7.0-16.0); BUN - UREA NITROGEN 24 mg/dL (7-25); CARBON DIOXIDE 22.8 mEq/L (21.0-31.0); CHLORIDE 105 mEq/L (98-107); CREATININE - SERUM 1.3 mg/dL (0.7-1.3); GFR AFRICAN-AMERICAN > 60.0 ml/min (>90); GLUCOSE 159 mg/dL (70-105); POTASSIUM SERUM 4.4 mEq/L (3.5-5.1); SODIUM SERUM 135 mEq/L (136-145)
[2018-05-09] MEDS ORDERED: Morphine Sulfate 2 mg/mL 1mL Syr IVP PRN (10:16)
[2018-05-09] MEDS: Morphine Sulfate 2 mg/mL 1mL Syr IVP PRN ×3 (10:38→21:03)
[2018-05-09] MEDS: Sodium Chloride 0.45% 1,000 ML IV SCH (15:18)
--- NOTE | 2018-05-09 16:33 | General Progress Note ---
Subjective - Review of Systems Subjective: patient awake, alert, c/o's of huynh cath discomfort Objective - Results Result Diagrams: 05/09/18 08:38 05/09/18 08:38 Recent Labs: Laboratory Last Values WBC 10.3 Th/cmm (4.8-10.8) 05/09/18 08:38 RBC 3.75 Mil/cmm (3.80-5.80) L 05/09/18 08:38 Hgb 11.4 gm/dL (12-16) L 05/09/18 08:38 Hct 33.8 % (41.0-60) L 05/09/18 08:38 MCV 90.3 fl (80-99) 05/09/18 08:38 MCH 30.4 pg (27.0-31.0) 05/09/18 08:38 MCHC Differential 33.7 pg (28.0-36.0) 05/09/18 08:38 RDW 13.8 % (11.5-20.0) 05/09/18 08:38 Plt Count 176 Th/cmm (150-400) 05/09/18 08:38 MPV 9.6 fl 05/09/18 08:38 Neutrophils % 68.8 % (40.0-80.0) 05/09/18 08:38 Lymphocytes % 18.1 % (20.0-50.0) L 05/09/18 08:38 Monocytes % 7.4 % (2.0-10.0) 05/09/18 08:38 Eosinophils % 4.7 % (0.0-5.0) 05/09/18 08:38 Basophils % 1.0 % (0.0-2.0) 05/09/18 08:38 Eos Smear Source URINE 05/07/18 08:20 Eos Smear Total Cells FEW EOSINOPHILS SEEN (NONE SEEN) 05/07/18 08:20 PT 11.1 SECONDS (9.5-11.5) 05/06/18 06:06 INR 1.07 (0.5-1.4) 05/06/18 06:06 Sodium 135 mEq/L (136-145) L 05/09/18 08:38 Potassium 4.4 mEq/L (3.5-5.1) 05/09/18 08:38 Chloride 105 mEq/L (98-107) 05/09/18 08:38 Carbon Dioxide 22.8 mEq/L (21.0-31.0) 05/09/18 08:38 Anion Gap 11.6 (7.0-16.0) 05/09/18 08:38 BUN 24 mg/dL (7-25) 05/09/18 08:38 Creatinine 1.3 mg/dL (0.7-1.3) 05/09/18 08:38 Est GFR ( Amer) > 60.0 ml/min (>90) 05/09/18 08:38 Est GFR (Non-Af Amer) 58.0 ml/min 05/09/18 08:38 BUN/Creatinine Ratio 18.5 05/09/18 08:38 Glucose 159 mg/dL (70-105) H 05/09/18 08:38 POC Glucose 181 MG/DL (70 - 105) H 05/09/18 16:24 Hemoglobin A1c % 7.6 % (4.0-6.0) H 05/03/18 15:10 Uric Acid 6.0 mg/dL (4.4-7.6) 05/06/18 06:06 Calcium 9.0 mg/dL (8.6-10.3) 05/09/18 08:38 Phosphorus 3.7 mg/dL (2.5-5.0) 05/07/18 05:25 Magnesium 2.0 mg/dL (1.9-2.7) 05/07/18 05:25 Total Bilirubin 0.3 mg/dL (0.3-1.0) 05/04/18 06:00 AST 14 U/L (13-39) 05/04/18 06:00 ALT 17 U/L (7-52) 05/04/18 06:00 Alkaline Phosphatase 88 U/L (34-104) 05/04/18 06:00 Creatine Kinase 131 U/L (30-223) 05/03/18 15:10 Troponin I 0.01 ng/mL (0.01-0.05) 05/03/18 15:10 B-Natriuretic Peptide 116.0 pg/mL (5.0-100.0) H 05/03/18 15:10 Total Protein 6.5 gm/dL (6.0-8.3) 05/04/18 06:00 Albumin 3.5 gm/dL (4.2-5.5) L 05/04/18 06:00 Globulin 3.0 gm/dL 05/04/18 06:00 Albumin/Globulin Ratio 1.2 (1.0-1.8) 05/04/18 06:00 Triglycerides 157 mg/dL (<150) H 05/04/18 06:00 Cholesterol 93 mg/dL (<200) 05/04/18 06:00 LDL Cholesterol Direct 42 mg/dL (75-193) L 05/04/18 06:00 HDL Cholesterol 29 mg/dL (23-92) 05/04/18 06:00 Prostate Specific Ag 1.7 ng/mL (0.0-4.0) 05/06/18 06:06 Free T4 1.27 ng/dL (0.82-1.77) 05/06/18 06:06 Free T3 2.6 pg/mL (2.0-4.4) 05/06/18 06:06 TSH 6.87 uIU/ml (0.34-5.60) H 05/04/18 06:00 Urine Source [place] 05/07/18 08:20 Urine Color RED 05/07/18 08:20 Urine Clarity CLOUDY (CLEAR) 05/07/18 08:20 Urine pH 6.5 (4.6 - 8.0) 05/07/18 08:20 Ur Specific [place] 1.020 (1.005-1.030) 05/07/18 08:20 Urine Protein >300 mg/dL (NEGATIVE) H 05/07/18 08:20 Urine Glucose (UA) NEGATIVE mg/dL (NEGATIVE) 05/07/18 08:20 Urine Ketones NEGATIVE mg/dL (NEGATIVE) 05/07/18 08:20 Urine Blood LARGE (NEGATIVE) H 05/07/18 08:20 Urine Nitrate POSITIVE (NEGATIVE) H 05/07/18 08:20 Urine Bilirubin NEGATIVE (NEGATIVE) 05/07/18 08:20 Urine Urobilinogen 1.0 E.U./dL (0.2 - 1.0) 05/07/18 08:20 Ur Leukocyte Esterase SMALL (NEGATIVE) H 05/07/18 08:20 Urine RBC >100 /hpf (0-5) H 05/07/18 08:20 Urine WBC 2-5 /hpf (0-5) 05/07/18 08:20 Ur Epithelial Cells RARE /lpf (FEW) 05/07/18 08:20 Urine Bacteria MODERATE /hpf (NONE SEEN) H 05/07/18 08:20 Ur Random Sodium 140 mmol/L 05/07/18 08:20 Urine Creatinine 58.0 mg/dl (39.0-259.0) 05/07/18 08:20 - Physical Exam Vitals and I&O: Vital Signs Temp 98.4 F 05/09/18 12:18 Pulse 70 05/09/18 12:18 Resp 18 05/09/18 13:32 BP 128/71 05/09/18 12:18 Pulse Ox 98 05/09/18 12:18 Intake & Output 05/08/18 05/09/18 05/09/18 18:59 06:59 18:59 Intake Total 2200 350 1000 Output Total 1100 800 Balance 1100 -450 1000 Weight (lbs) 100.244 kg 100.244 kg Intake: Intake, IV Amount 1000 50 1000 Sodium Chloride 0.45% 1, 1000 1000 000 ml @ 50 mls/hr IV . Q20H [facility] Rx#:[id number] cefTRIAXone 1 gm In 50 Sodium Chloride 0.9% 50 ml @ 100 mls/hr IV Q24HR@ 2100 [facility] Rx#:[id number] Oral 1200 300 Output: Urine 1100 800 Other: # Bowel Movements 0 0 Stool Characteristics Formed Weight Source Bedscale Bedscale Active Medications: Current Medications Acetaminophen (Tylenol) 650 mg PO Q4H PRN PRN Reason: Pain or Fever >101 Stop: 07/02/18 21:01 Last Admin: 05/08/18 05:00 Dose: 650 mg Acetaminophen/Hydrocodone Bitart ([place] 5mg/325mg) 1 tab PO Q4H PRN PRN Reason: Severe Pain Stop: 07/07/18 11:49 Last Admin: 05/09/18 15:26 Dose: 1 tab Al Hydrox/Mg Hydrox/Simethicone (Maalox) 30 ml PO Q4HR PRN PRN Reason: Heartburn Stop: 07/03/18 20:44 Last Admin: 05/04/18 22:23 Dose: 30 ml Allopurinol (Zyloprim) 100 mg PO DAILY [facility] Stop: 07/03/18 08:59 Last Admin: 05/09/18 08:44 Dose: 100 mg Amlodipine Besylate (Norvasc) 10 mg PO DAILY [facility] Stop: 07/03/18 08:59 Last Admin: 05/09/18 08:44 Dose: 10 mg Atorvastatin Calcium (Lipitor) 40 mg PO HS [facility] Stop: 07/02/18 22:59 Last Admin: 05/08/18 20:43 Dose: 40 mg Bisacodyl (Dulcolax 10 Mg Supp) 10 mg RC DAILY PRN PRN Reason: IF MOM INEFFECTIVE Stop: 07/02/18 21:01 Carvedilol (Coreg) 12.5 mg PO BID [facility] Stop: 07/03/18 08:59 Last Admin: 05/09/18 09:03 Dose: Not Given Diphenhydramine HCl (Benadryl) 25 mg PO Q8HR [facility] Stop: 07/03/18 04:59 Last Admin: 05/09/18 13:12 Dose: Not Given Docusate Sodium (Colace) 100 mg PO BID [facility] Stop: 07/03/18 08:59 Last Admin: 05/09/18 08:39 Dose: 100 mg Gabapentin (Neurontin) 300 mg PO DAILY [facility] Stop: 07/03/18 08:59 Last Admin: 05/09/18 08:44 Dose: 300 mg Guaifenesin/Dextromethorphan (Robitussin Dm) 10 ml PO Q6H PRN PRN Reason: Cough Stop: 07/02/18 21:01 Last Admin: 05/07/18 20:14 Dose: 10 ml Sodium Chloride (Nacl 0.45%) 1,000 mls @ 50 mls/hr IV .Q20H [facility] Stop: 07/02/18 22:14 Last Admin: 05/09/18 15:18 Dose: 50 mls/hr Ceftriaxone Sodium 1 gm/ (Sodium Chloride) 50 mls @ 100 mls/hr IV Q24HR@2100 [facility] Stop: 07/06/18 20:59 Last Infusion: 05/08/18 21:15 Dose: Infused Insulin Aspart (Novolog Insulin Sliding Scale) 0 units SUBQ Q6HR [facility]; Protocol Stop: 07/03/18 00:00 Last Admin: 05/09/18 11:52 Dose: Not Given Lidocaine HCl (Xylocaine 2% Gel) 5 ml TP BID PRN PRN Reason: genital pain Stop: 07/07/18 14:12 Lisinopril (Zestril) 5 mg PO DAILY [facility] Stop: 07/03/18 08:59 Last Admin: 05/09/18 08:43 Dose: 5 mg Loperamide HCl (Imodium) 2 mg PO Q6H PRN PRN Reason: Diarrhea Stop: 07/02/18 21:01 Magnesium Hydroxide (Milk Of Magnesia) 30 ml PO HS PRN PRN Reason: Constipation Stop: 07/02/18 21:01 Meclizine HCl (Antivert) 12.5 mg PO Q8H PRN PRN Reason: Dizziness Stop: 07/04/18 15:54 Metformin HCl (Glucophage) 500 mg PO BID [facility] Stop: 07/03/18 08:59 Last Admin: 05/09/18 08:44 Dose: 500 mg Morphine Sulfate (Morphine) 1 mg IVP Q4H PRN PRN Reason: Pain (Moderate) Stop: 07/08/18 10:15 Morphine Sulfate (Morphine) 2 mg IVP Q4HR PRN PRN Reason: Severe Pain Stop: 07/08/18 10:17 Last Admin: 05/09/18 13:10 Dose: 2 mg Multivitamins/Vitamin C (Theragran) 1 tab PO DAILY [facility] Stop: 07/03/18 08:59 Last Admin: 05/09/18 08:44 Dose: 1 tab Oxybutynin Chloride (Ditropan) 5 mg PO BID [facility] Stop: 07/08/18 08:59 Last Admin: 05/09/18 08:43 Dose: 5 mg Pantoprazole Sodium (Protonix) 40 mg IVP DAILY [facility] Stop: 07/04/18 03:29 Last Admin: 05/09/18 08:38 Dose: 40 mg Psyllium Hydrophilic Mucilloid (Metamucil) 1 pkt PO DAILY PRN PRN Reason: BOWEL MANAGEMENT Stop: 07/02/18 21:01 Sodium Phosphate (Fleet Enema) 135 ml RC Q48H PRN PRN Reason: IF DULCOLAX INEFFECTIVE Stop: 07/02/18 21:01 Zolpidem Tartrate (Ambien) 5 mg PO HS PRN PRN Reason: Insomnia Stop: 07/02/18 21:01 Last Admin: 05/08/18 23:37 Dose: 5 mg General: Alert, Cooperative, No acute distress HEENT: Atraumatic, Mucous membr. moist/pink Neck: Supple, +2 carotid pulse wo bruit Cardiovascular: Regular rate, Normal S1, Normal S2 Lungs: Clear to auscultation Abdomen: Bowel sounds, Soft, Obese, no Tender Extremities: no Edema Neurological: Normal tone, Sensation intact, Cranial nerves 3-12 NL Skin: no Rash Psych/Mental Status: Mood NL Assessment/Plan - Problem List Patient Problems: All Active Problems Anemia (Acute) D64.9 CAD (coronary artery disease) (Acute) I25.10 Gastroesophageal reflux disease (Acute) K21.9 Gout (Acute) M10.9 HTN (hypertension) (Acute) I10 Hyperlipidemia (Acute) E78.5 Neuropathy (Acute) G62.9 Osteoarthritis (Acute) M19.90 Vertigo (Acute) R42 - Plan Plan: will monitor continue current meds Nutritional Asmnt/Malnutr-PDOC - Dietary Evaluation Malnutrition Findings (Please click <Entered> for more info): Nutritional Asmnt/Malnutrition Start: 05/07/18 17: 24 Text: Status: Complete Freq: Protocol: Document 05/07/18 17:24 LCHENG (Rec: 05/07/18 17:37 [email or web address]) Nutritional Asmnt/Malnutrition Patient General Information Nutritional Screening Moderate Risk Diagnosis dizziness, vertigo, TIA cardiac arrythmias anemi Pertinent Medical Hx/Surgical Hx HTN, OA, gout, hyperlipidemia, CAD, GERD, neuropathy, DM Subjective Information Pt had EGD and colonoscopy yesterday 05/06. Per EMR, PO intake 75% on full liquid diet . Diet advances to regular at dinner today. Current Diet Order/ Nutrition Support full liquid Pertinent Medications colace, novolog, glucophage, theragran, protonix, nacl 0.45 % Pertinent Labs 05/07 glucose 154, POC 149-277 Nutritional Hx/Data Height 1.65 m Height (Calculated Centimeters) 165.1 Current Weight (lbs) 101.151 kg Weight (Calculated Kilograms) 101.2 Weight (Calculated Grams) 026862.1 [place] Body Weight 136 Body Mass Index (BMI) 37.0 Weight Status Obese GI Symptoms GI Symptoms None Last BM 7/ Difficult in: None Skin Integrity/Comment: intact Current %PO Good (75-100%) Estimated Nutritional Goals BEE in Kcals: Adj wt of IBW Calories/Kcals/Kg 25-30 Kcals Calculated 2979-4733 Protein: Adj wt of IBW Protein g/k-1.2 Protein Calculated 72-84 Fluid: ml 1800-2160ml (1ml/kcal) Nutritional Problem 1. Problem Problem altered nutrition related lab Etiology hx of DM Signs/Symptoms: glucose 154, POC 149-277 Malnutrition Alert Is there a minimum of two criteria No selected? Query Text:Check all the applicable criteria. A minimum of two criteria are recommended for diagnosis of either severe or non-severe malnutrition. Malnutrition Related to Morbid Obesity Malnutrition related to morbid obesity No Intervention/Recommendation Comments 1. Recomend [facility] diet for better glycemic control 2. Monitor PO intake, wt, labs and skin integrity 3. F/U as moderate risk in 3-5 days, 05/10-05/12 Expected Outcomes/Goals Expected Outcomes/Goals 1. PO intake to meet at least 75% of nutritional needs. 2. Wt stability, skin to remain intact, labs to approach WNL.
[2018-05-09] MEDS: cefTRIAXone 1 GM in Sodium Chloride 0.9% 50 ML IV SCH (21:00)
[2018-05-09] MEDS: Atorvastatin Calcium 10 MG TAB PO SCH (21:02)
--- NOTE | 2018-05-09 23:07 | Progress Notes ---
DATE: SUBJECTIVE: The patient has had trouble with the Javier off and on, requiring frequent irrigations. This morning, I had changed and he improved significantly. Therefore, we deferred or canceled the cystoscopy that I was planning to do in the afternoon; however, after that he has again started having trouble and nurses are noticing significant clotting or clots as well as pain associated with the catheter and clots. PHYSICAL EXAMINATION: VITAL SIGNS: Temperature 98.4, heart rate 60, and blood pressure 123/60. Abdomen is soft and difficult to confirm if his bladder is distended since he is extremely obese, especially at the abdomen. He is tender over the bladder area. EXTREMITIES: No edema. GENITOURINARY: Javier dark pink urine with occasional clots. Urine output recorded is 1900, but there is no mention about the Javier as such. LABORATORY DATA: White count is 10.3, stable hemoglobin 11.4, and also stable platelets 176. PT, PTT were normal on admission. Electrolytes: Sodium 135, BUN 24, creatinine 1.3, and glucose stable at 181, 128, and 159. IMPRESSION: 1. Urinary retention with bleeding, having difficulty with the Javier. I think it is best to do a cystoscopy and evacuate any clots to stabilize the bladder drainage and then wait for definitive TURP on Sunday. We have arranged for the bipolar cautery and by that time, the Plavix effect should have worn off. His continued bleeding may be secondary to the Plavix effect. 2. Bilateral hydronephrosis, stable renal function. 3. History of diabetes, obesity, and coronary artery disease and significant other risk factors. Dr. Miller has cleared the patient for the procedure. JOB# [id number]
[2018-05-10 05:29] LABS: % BASOPHILS 0.3 % (0.0-2.0); % EOSINOPHILS 4.9 % (0.0-5.0); % LYMPHOCYTES 23.3 % (20.0-50.0); % MONOCYTES 8.8 % (2.0-10.0); % NEUTROPHILS 62.7 % (40.0-80.0); EOSINOPHILE ABSOLUTE 0.4 Th/cmm (0.1-0.4); HEMATOCRIT 32.1 % (41.0-60); HEMOGLOBIN 10.8 gm/dL (12-16); LYMPHOCYTE ABSOLUTE 2.1 Th/cmm (1.5-3.0); MEAN CELL VOLUME 91.1 fl (80-99); MEAN CORPUSCULAR HEMOGLOBIN 30.7 pg (27.0-31.0); MEAN CORPUSCULAR HGB CONC 33.7 pg (28.0-36.0); MEAN PLATELET VOLUME 10.1 fl; MONOCYTE ABSOLUTE 0.8 Th/cmm (0.3-1.0); NEUTROPHILE ABSOLUTE 5.5 Th/cmm (1.8-8.0); PLATELET COUNT 184 Th/cmm (150-400); RED BLOOD COUNT 3.52 Mil/cmm (3.80-5.80); RED CELL DISTRIBUTION WIDTH 13.7 % (11.5-20.0); WHITE BLOOD COUNT 8.8 Th/cmm (4.8-10.8)
[2018-05-10 05:37] LABS: INR 1.1 (0.5-1.4); PROTHROMBIN TIME (TEST) 11.5 SECONDS (9.5-11.5)
[2018-05-10 05:47] LABS: ANION GAP 6.7 (7.0-16.0); BUN - UREA NITROGEN 20 mg/dL (7-25); CARBON DIOXIDE 26.2 mEq/L (21.0-31.0); CHLORIDE 106 mEq/L (98-107); CREATININE - SERUM 1.1 mg/dL (0.7-1.3); GFR AFRICAN-AMERICAN > 60.0 ml/min (>90); GFR NON AFRICAN-AMERICAN > 60.0 ml/min; GLUCOSE 138 mg/dL (70-105); POTASSIUM SERUM 3.9 mEq/L (3.5-5.1); SODIUM SERUM 135 mEq/L (136-145)
[2018-05-10] MEDS: INSULIN ASPART SLIDING SCALE 100 UNITS/ML UNIT SUBQ SCH ×2 (05:49→13:41)
[2018-05-10] MEDS ORDERED: PROPOFOL SURGERY USE ONLY IV ONE (09:00)
[2018-05-10] MEDS ORDERED: fentaNYL Citrate 100 mcg/2mL Vial ONE (09:14)
[2018-05-10] MEDS ORDERED: fentaNYL Citrate 100 mcg/2mL Vial IVP PRN (09:32)
[2018-05-10] MEDS: Multivitamin Tab PO SCH (10:57)
[2018-05-10] MEDS: Morphine Sulfate 2 mg/mL 1mL Syr IVP PRN (11:15)
[2018-05-10] MEDS: Hydrocodone/APAP 5mg/325mg Tab PO PRN (11:15)
--- NOTE | 2018-05-10 20:54 | Operative Report ---
DATE OF SURGERY: 05/10/2018 PREOPERATIVE DIAGNOSES: Hematuria, clot retention, and benign prostatic hypertrophy. POSTOPERATIVE DIAGNOSES: Hematuria, clot retention, and benign prostatic hypertrophy. SURGEON: Pablo Armendariz M.D. NAME OF PROCEDURE: Cystoscopy and clot evacuation under general anesthesia. PRESENT ILLNESS: The patient is a 68-year-old who came in with urinary retention and had a Javier placed, after which he started to bleed off and on, probably worsened by his Plavix that was on board. Plavix was stopped soon afterwards and the bleeding improved, but did not stop and required frequent irrigation and even change of the catheter yesterday. Unfortunately, it continued to bother the patient and required very frequent irrigations. Therefore, cystoscopy was recommended. The patient is awaiting definitive procedure, which will be a TURP that is scheduled for Sunday, two days from now. By that time, he will be off the Plavix for about 6 days. FINDINGS: A cystoscopy revealed no stricture and obstructed prostatic fossa with elevated bladder neck. Small lateral lobes, mostly on the anterior side and at the apex. This caused high-grade obstruction. The bladder is heavily trabeculated and there were few clots, which were irrigated out. I did not see any active bleeding to fulgurate and simply replaced a new Javier catheter. His bladder seems to be very sensitive and probably has a lot of spasms in spite of getting the anticholinergics. Therefore, I decided not to keep him on continuous bladder irrigation at this point and see how he does. Blood loss was less than 50 mL. There were no complications. DESCRIPTION OF PROCEDURE: The patient was brought to the operating room, prepped and draped in the dorsal lithotomy position after general anesthesia was induced. After dilating the meatus and the urethra, the cystoscope was advanced under vision and the findings were noted with the 30 and 70 degree lenses. The patient kept pushing during the operation, which made it difficult to examine him very well and to irrigate the bladder very well. I managed to irrigate out the few clots, which helped and I could not see any active bleeding to fulgurate. I then proceeded to replace the Javier, a size 23 way in case he needs continuous irrigation and irrigate the catheter without any problems, with clear returns, and returned the patient to recovery in stable condition. JOB# [id number]
--- NOTE | 2018-05-14 02:14 | Discharge Summary ---
DATE OF DISCHARGE: 05/10/2018 This patient is very well known to me. Patient was admitted on 05/03/2018 for abdominal pain ____ anemia, osteoarthritis, hyperlipidemia, ____ and possible BPH. The patient also ____ renal problem. The patient was admitted on a complete workup including renal as well as ____. The patient had hematuria and continued ____. The patient improved and the patient needed surgery for BPH. We will reschedule in the next visit. The patient was discharged in stable condition ____. We will follow BPH ____ polyneuropathy and peripheral neuropathy, diabetes, autonomic dysfunction ____. JOB# [id number]
== END 2018-05-10 17:25 | DRG 694 ==
LOC: ER 14:40 → MSI 17:30 → TELE 20:37
PROVIDERS: ADMIT Internal Medicine; ATTEND Internal Medicine
PROC: 0DB58ZX Excision of Esophagus, Via Natural or Artificial Opening Endoscopic, Diagnostic (ICD-10-PCS; principal; 2018-05-06)
PROC: 0DB68ZX Excision of Stomach, Via Natural or Artificial Opening Endoscopic, Diagnostic (ICD-10-PCS; 2018-05-06)
PROC: 0DBH8ZZ Excision of Cecum, Via Natural or Artificial Opening Endoscopic (ICD-10-PCS; 2018-05-06)
PROC: 0DBP8ZZ Excision of Rectum, Via Natural or Artificial Opening Endoscopic (ICD-10-PCS; 2018-05-06)
PROC: 0TCB8ZZ Extirpation of Matter from Bladder, Via Natural or Artificial Opening Endoscopic (ICD-10-PCS; 2018-05-10)
DX: N13.2 Hydronephrosis with renal and ureteral calculous obstruction (principal); N40.1 Benign prostatic hyperplasia with lower urinary tract symptoms; H81.10 Benign paroxysmal vertigo, unspecified ear; D64.9 Anemia, unspecified; I25.10 Atherosclerotic heart disease of native coronary artery without angina pectoris; E11.65 Type 2 diabetes mellitus with hyperglycemia; M19.90 Unspecified osteoarthritis, unspecified site; E78.5 Hyperlipidemia, unspecified; M10.9 Gout, unspecified; K29.70 Gastritis, unspecified, without bleeding; K63.5 Polyp of colon; K21.0 Gastro-esophageal reflux disease with esophagitis; E11.22 Type 2 diabetes mellitus with diabetic chronic kidney disease; N18.2 Chronic kidney disease, stage 2 (mild); I69.393 Ataxia following cerebral infarction; E02 Subclinical iodine-deficiency hypothyroidism; E66.01 Morbid (severe) obesity due to excess calories; R33.8 Other retention of urine; I12.9 Hypertensive chronic kidney disease with stage 1 through stage 4 chronic kidney disease, or unspecified chronic kidney disease; R31.0 Gross hematuria; K80.20 Calculus of gallbladder without cholecystitis without obstruction; E11.21 Type 2 diabetes mellitus with diabetic nephropathy; D69.6 Thrombocytopenia, unspecified; E11.42 Type 2 diabetes mellitus with diabetic polyneuropathy; T45.525A Adverse effect of antithrombotic drugs, initial encounter; Y92.89 Other specified places as the place of occurrence of the external cause; Z68.36 Body mass index [BMI] 36.0-36.9, adult; Z82.49 Family history of ischemic heart disease and other diseases of the circulatory system
CPT/HCPCS: 36415-UA; 70450-TC; 71045-TC; 76700-TC; 80048-TC; 80053-TC; 80061-TC; 81001-TC; 81015-TC; 82550-TC; 82570-TC; 82948-90; 83036-90; 83735-TC; 83880-TC; 84100-TC; 84153-90; 84300-TC; 84439-90; 84443-TC; 84479-90; 84484-TC; 84550-TC; 85025-TC; 85610-TC; 85730-TC; 87086-90; 90799; 93005; 94760; A4217; C9113; J0690; J0696; J1815; J2270; J2704; J3010; V2790; X7704; Z7610

== ENCOUNTER 2018-05-17 06:50 | Inpatient (IN) | payer MEDICARE, MEDICAID ==
[2018-05-17] MEDS ORDERED: Magnesium Hydroxide (MOM) 30 mL UDC PO PRN (07:51)
[2018-05-17] MEDS ORDERED: Fleet Enema 135 mL RC PRN (07:51)
[2018-05-17] MEDS ORDERED: Guaifenesin DM 10 ML UDC PO PRN (07:51)
[2018-05-17 08:35] LABS: % BASOPHILS 1.2 % (0.0-2.0); % EOSINOPHILS 5.5 % (0.0-5.0); % LYMPHOCYTES 19.9 % (20.0-50.0); % NEUTROPHILS 64.4 % (40.0-80.0); BASOPHILE ABSOLUTE 0.1 Th/cumm (0-0.2); EOSINOPHILE ABSOLUTE 0.4 Th/cmm (0.1-0.4); HEMATOCRIT 31.6 % (41.0-60); HEMOGLOBIN 10.7 gm/dL (12-16); LYMPHOCYTE ABSOLUTE 1.4 Th/cmm (1.5-3.0); MEAN CELL VOLUME 89.3 fl (80-99); MEAN CORPUSCULAR HEMOGLOBIN 30.3 pg (27.0-31.0); MEAN CORPUSCULAR HGB CONC 33.9 pg (28.0-36.0); MEAN PLATELET VOLUME 9.4 fl; MONOCYTE ABSOLUTE 0.6 Th/cmm (0.3-1.0); NEUTROPHILE ABSOLUTE 4.6 Th/cmm (1.8-8.0); PLATELET COUNT 201 Th/cmm (150-400); RED BLOOD COUNT 3.54 Mil/cmm (3.80-5.80); RED CELL DISTRIBUTION WIDTH 13.5 % (11.5-20.0); WHITE BLOOD COUNT 7.1 Th/cmm (4.8-10.8)
[2018-05-17 08:59] LABS: ANION GAP 11.8 (7.0-16.0); BUN - UREA NITROGEN 27 mg/dL (7-25); CALCIUM SERUM 9.1 mg/dL (8.6-10.3); CARBON DIOXIDE 25.4 mEq/L (21.0-31.0); CHLORIDE 106 mEq/L (98-107); CREATININE - SERUM 1.2 mg/dL (0.7-1.3); GFR AFRICAN-AMERICAN > 60.0 ml/min (>90); GFR NON AFRICAN-AMERICAN > 60.0 ml/min; GLUCOSE 138 mg/dL (70-105); INR 1.05 (0.5-1.4); POTASSIUM SERUM 4.2 mEq/L (3.5-5.1); PROTHROMBIN TIME (TEST) 10.9 SECONDS (9.5-11.5); SODIUM SERUM 139 mEq/L (136-145)
--- NOTE | 2018-05-17 09:05 | Diagnostic Imaging Report ---
Portable chest x-ray HISTORY: Shortness of breath The heart is enlarged. Mild density noted about the right costophrenic angle. A minimal effusion cannot be excluded. No focal pulmonary parenchymal processes. Degenerative changes seen to the spine. IMPRESSION: 1. Cardiomegaly 2. Question minimal right pleural effusion
[2018-05-17] MEDS: D5-0.45NS 1,000 ML IV SCH (09:30)
[2018-05-17] MEDS: Multivitamin Tab PO SCH (09:37)
[2018-05-17] MEDS ORDERED: Lidocaine 2% Gel 5 mL TP ONE (10:15)
[2018-05-17] MEDS ORDERED: Sodium Chloride 0.9% IRR 1,000 ML IV ONE (10:15)
[2018-05-17] MEDS ORDERED: fentaNYL Citrate 100 mcg/2mL Vial ONE (10:40)
[2018-05-17 10:45] VITALS: BP 134/58
[2018-05-17] MEDS ORDERED: Propofol **SURGERY USE ONLY** 20 ML IV ONE (10:48)
[2018-05-17] MEDS ORDERED: Neostigmine 10mg/10mL Vial ONE (10:51)
[2018-05-17] MEDS ORDERED: Albuterol/Ipratropium Neb 3 ML AERS HHN PRN (12:33)
[2018-05-17] MEDS ORDERED: Meperidine 25 mg/mL 1mL Syr ONE (13:25)
[2018-05-17] MEDS ORDERED: Meperidine 25 mg/mL 1mL Syr IVP ONE (13:26)
[2018-05-17] MEDS: APAP/Codeine 300 mg/30 mg Tab PO PRN (14:20)
[2018-05-17] MEDS: HYDROmorphone 2 mg/mL 1mL Vial IVP PRN ×2 (15:00→23:46)
--- NOTE | 2018-05-17 16:00 | Operative Report ---
DATE OF SURGERY: 05/17/2018 PREOPERATIVE DIAGNOSES: Urinary retention and benign prostatic hypertrophy. POSTOPERATIVE DIAGNOSES: Urinary retention and benign prostatic hypertrophy and neurogenic bladder. SURGEON: Pablo Armendariz M.D. PROCEDURE: TURP and cystoscopy under general anesthesia. INDICATIONS: The patient is a 68-year-old morbidly obese gentleman who had urinary retention on his last admission and was treated with a Javier and discharged because he was on anticoagulants and could not have any procedures. After the anticoagulant effect wore off, he was readmitted today for the procedure. FINDINGS: Cystoscopy revealed high-grade obstruction of the prostatic urethra from very small lateral lobes, mostly at the apex and then elevated bladder neck. The gland itself was very small. The bladder was trabeculated with some catheter cystitis changes and very poor visibility as well as very small capacity. TURP was accomplished without difficulty using a bipolar cautery. A wide open channel was created with the verumontanum and the ureters intact. Bleeding was minimal, but the procedure was difficult due to the patient's straining throughout the operation and the small bladder capacity. Blood loss was less than 50 mL. There were no complications. FINDINGS: The patient may have a big prominent element of neurogenic bladder from his diabetes and may have difficulty urinating in spite of this procedure. PROCEDURE: The patient was brought to the operating room, prepped and draped in the dorsal lithotomy position after general anesthesia was induced. After dilating the urethra, the bladder was entered with a 30-degree scope and not examined as well as a 70-degree, but visibility was limited as the patient kept straining and the bladder capacity was extremely small. After verifying the findings, resectoscope was introduced under vision using an optical obturator and resection was begun on the bladder neck, which was elevated at 6 o'clock using a bipolar cautery and a loop. The bladder neck was resected first followed by the left lobe mostly at the apex and then the right lobe followed by the small anterior lobe, all of which were very small, but contributed to significant obstruction visually. Chips were irrigated out periodically, but again the irrigation was difficult due to the very small capacity and the patient continuing to strain. Bleeding points were fulgurated and were minimal to begin with and then a 3-way Javier was introduced with almost clear returns and the patient was brought back to the recovery room without any complications. [facility]# [id number]
[2018-05-17] MEDS: INSULIN ASPART SLIDING SCALE 100 UNITS/ML UNIT SUBQ SCH ×2 (17:39→23:47)
[2018-05-17] MEDS ORDERED: Non-Formulary Item 1 EA (Melatonin [Melatonin] 10 MG) PO SCH (21:00)
[2018-05-18 04:44] LABS: % BASOPHILS 0.8 % (0.0-2.0); % EOSINOPHILS 2.4 % (0.0-5.0); % LYMPHOCYTES 16.2 % (20.0-50.0); % MONOCYTES 9.8 % (2.0-10.0); % NEUTROPHILS 70.8 % (40.0-80.0); BASOPHILE ABSOLUTE 0.1 Th/cumm (0-0.2); EOSINOPHILE ABSOLUTE 0.2 Th/cmm (0.1-0.4); HEMATOCRIT 28.3 % (41.0-60); HEMOGLOBIN 9.3 gm/dL (12-16); LYMPHOCYTE ABSOLUTE 1.4 Th/cmm (1.5-3.0); MEAN CELL VOLUME 89.8 fl (80-99); MEAN CORPUSCULAR HEMOGLOBIN 29.7 pg (27.0-31.0); MEAN CORPUSCULAR HGB CONC 33.1 pg (28.0-36.0); MEAN PLATELET VOLUME 8.9 fl; MONOCYTE ABSOLUTE 0.8 Th/cmm (0.3-1.0); NEUTROPHILE ABSOLUTE 5.9 Th/cmm (1.8-8.0); PLATELET COUNT 210 Th/cmm (150-400); RED BLOOD COUNT 3.15 Mil/cmm (3.80-5.80); RED CELL DISTRIBUTION WIDTH 13.3 % (11.5-20.0); WHITE BLOOD COUNT 8.4 Th/cmm (4.8-10.8)
[2018-05-18 04:59] LABS: ANION GAP 8.7 (7.0-16.0); BUN - UREA NITROGEN 29 mg/dL (7-25); CALCIUM SERUM 8.6 mg/dL (8.6-10.3); CARBON DIOXIDE 24.8 mEq/L (21.0-31.0); CHLORIDE 109 mEq/L (98-107); CREATININE - SERUM 1.4 mg/dL (0.7-1.3); GFR AFRICAN-AMERICAN > 60.0 ml/min (>90); GFR NON AFRICAN-AMERICAN 53.3 ml/min; GLUCOSE 137 mg/dL (70-105); POTASSIUM SERUM 4.5 mEq/L (3.5-5.1); SODIUM SERUM 138 mEq/L (136-145)
[2018-05-18] MEDS: INSULIN ASPART SLIDING SCALE 100 UNITS/ML UNIT SUBQ SCH ×4 (06:08→18:25)
[2018-05-18] MEDS: Multivitamin Tab PO SCH (08:30)
[2018-05-18] MEDS: HYDROmorphone 2 mg/mL 1mL Vial IVP PRN (08:30)
[2018-05-18] MEDS ORDERED: Fleet Enema 135 mL RC PRN (12:17)
--- NOTE | 2018-05-18 14:56 | History & Physical ---
ADMIT DATE: 05/18/2018 CHIEF COMPLAINT: Hematuria. HISTORY OF PRESENT ILLNESS: This is a 68-year-old male who was admitted from a [facility] facility through the Emergency Room due to hematuria. The patient underwent transurethral resection of the prostate and cystoscopy yesterday 05/17/2018. Currently, the patient being seen here in Intensive Care Unit. REVIEW OF SYSTEMS: GENERAL: This is a 68-year-old male that appears as stated. Denies fever. Denies chills. NEUROLOGIC: Denies headache, denies dizziness. EYES: Denies eye pain. Denies blurring of vision. NECK: Denies neck pain. Denies nuchal rigidity. CHEST: Denies chest pain. Denies palpitation. PULMONARY: Denies shortness of breath. Denies coughing. GASTROINTESTINAL: Denies abdominal pain. Denies diarrhea. Denies constipation. MUSCULOSKELETAL: Denies joint pain. Denies muscle pain. SOCIAL HISTORY: The patient lives in a [facility] facility prior to hospitalization. Denies smoking. Denies alcohol use. Denies illicit drug use. FAMILY HISTORY: Unremarkable. PAST SURGICAL HISTORY: The patient is status post TURP with cystoscopy. PAST MEDICAL HISTORY: Includes benign prostatic hypertrophy, diabetes, gout, hyperlipidemia, hypertension, coronary artery disease, osteoarthritis. REVIEW OF SYSTEMS: VITAL SIGNS: Temperature 97.2, heart rate 64, blood pressure 121/65, respirations 12, 97% room air. HEENT: Head is atraumatic and normocephalic. Eyes: Bilateral conjunctivae are clear. Bilateral pupils are equally round and reactive. NECK: Supple. No JVD. CARDIOVASCULAR: S1 and S2, without murmur. PULMONARY: Clear to auscultation. GASTROINTESTINAL: Soft and nontender without guarding. Positive bowel sounds. MUSCULOSKELETAL: No clubbing. No cyanosis noted. ASSESSMENT: 1. Hematuria. 2. Status post transurethral resection of the prostate and cystoscopy. 3. Benign prostatic hypertrophy. 4. Hypertension. 5. Gouty arthritis. 6. Hyperlipidemia. 7. Coronary artery disease. 8. Gastroesophageal reflux disease. 9. Osteoarthritis. 10. Diabetes mellitus. PLAN: We will continue bladder irrigation and follow up with the urologist. We will also going to do medication reconciliation accordingly and provide pain management as needed. Treatment plans were discussed with the patient's nurse. Treatment plans were discussed with Dr. Miller. [facility]# [id number]
[2018-05-18] MEDS: APAP/Codeine 300 mg/30 mg Tab PO PRN (18:24)
[2018-05-19] MEDS: INSULIN ASPART SLIDING SCALE 100 UNITS/ML UNIT SUBQ SCH ×5 (01:02→18:02)
--- NOTE | 2018-05-19 04:58 | Progress Notes ---
DATE: 05/18/2018 UROLOGY FOLLOWUP HOSPITAL COURSE: The patient is postop day 1 after TURP, doing very well and transferred out of the ICU this morning. He has been afebrile and vital signs are stable. Urine has remained clear without significant bleeding or clotting. Exam is unremarkable. LABORATORY DATA: White count 8.4, hemoglobin 9.3, some drop in the hemoglobin from yesterday and electrolytes are normal. BUN 29, creatinine 1.4. Sugars are adequate and under control. IMPRESSION: Stable postop day 1. Recommend continued irrigation today and we will try and stop it tomorrow. Continue to hold the Plavix for now. JOB# [id number]
[2018-05-19] MEDS: D5-0.45NS 1,000 ML IV SCH (05:57)
[2018-05-19 06:41] LABS: % BASOPHILS 0.6 % (0.0-2.0); % EOSINOPHILS 3.6 % (0.0-5.0); % LYMPHOCYTES 18.6 % (20.0-50.0); % MONOCYTES 8.4 % (2.0-10.0); % NEUTROPHILS 68.8 % (40.0-80.0); BASOPHILE ABSOLUTE 0.1 Th/cumm (0-0.2); EOSINOPHILE ABSOLUTE 0.3 Th/cmm (0.1-0.4); HEMATOCRIT 28.5 % (41.0-60); HEMOGLOBIN 9.7 gm/dL (12-16); LYMPHOCYTE ABSOLUTE 1.6 Th/cmm (1.5-3.0); MEAN CELL VOLUME 89.8 fl (80-99); MEAN CORPUSCULAR HEMOGLOBIN 30.4 pg (27.0-31.0); MEAN CORPUSCULAR HGB CONC 33.9 pg (28.0-36.0); MEAN PLATELET VOLUME 9.8 fl; MONOCYTE ABSOLUTE 0.7 Th/cmm (0.3-1.0); NEUTROPHILE ABSOLUTE 5.7 Th/cmm (1.8-8.0); PLATELET COUNT 201 Th/cmm (150-400); RED BLOOD COUNT 3.17 Mil/cmm (3.80-5.80); RED CELL DISTRIBUTION WIDTH 13.3 % (11.5-20.0); WHITE BLOOD COUNT 8.4 Th/cmm (4.8-10.8)
[2018-05-19 06:43] LABS: ANION GAP 8.8 (7.0-16.0); BUN - UREA NITROGEN 26 mg/dL (7-25); CALCIUM SERUM 8.8 mg/dL (8.6-10.3); CARBON DIOXIDE 25.5 mEq/L (21.0-31.0); CHLORIDE 107 mEq/L (98-107); CREATININE - SERUM 1.3 mg/dL (0.7-1.3); GFR AFRICAN-AMERICAN > 60.0 ml/min (>90); GLUCOSE 143 mg/dL (70-105); POTASSIUM SERUM 4.3 mEq/L (3.5-5.1); SODIUM SERUM 137 mEq/L (136-145)
[2018-05-19] MEDS: Multivitamin Tab PO SCH (09:09)
[2018-05-19] MEDS: HYDROmorphone 2 mg/mL 1mL Vial IVP PRN ×2 (12:34→17:09)
--- NOTE | 2018-05-19 13:48 | General Progress Note ---
Subjective - Review of Systems Events since last encounter: awake alert no distress doing well s/p turp Objective - Results Result Diagrams: 05/19/18 05:54 05/19/18 05:54 Recent Labs: Laboratory Last Values WBC 8.4 Th/cmm (4.8-10.8) 05/19/18 05:54 RBC 3.17 Mil/cmm (3.80-5.80) L 05/19/18 05:54 Hgb 9.7 gm/dL (12-16) L 05/19/18 05:54 Hct 28.5 % (41.0-60) L 05/19/18 05:54 MCV 89.8 fl (80-99) 05/19/18 05:54 MCH 30.4 pg (27.0-31.0) 05/19/18 05:54 MCHC Differential 33.9 pg (28.0-36.0) 05/19/18 05:54 RDW 13.3 % (11.5-20.0) 05/19/18 05:54 Plt Count 201 Th/cmm (150-400) 05/19/18 05:54 MPV 9.8 fl 05/19/18 05:54 Neutrophils % 68.8 % (40.0-80.0) 05/19/18 05:54 Lymphocytes % 18.6 % (20.0-50.0) L 05/19/18 05:54 Monocytes % 8.4 % (2.0-10.0) 05/19/18 05:54 Eosinophils % 3.6 % (0.0-5.0) 05/19/18 05:54 Basophils % 0.6 % (0.0-2.0) 05/19/18 05:54 PT 10.9 SECONDS (9.5-11.5) 05/17/18 08:30 INR 1.05 (0.5-1.4) 05/17/18 08:30 PTT (Actin FS) 24.7 SECONDS (26.0-38.0) L 05/17/18 08:30 Sodium 137 mEq/L (136-145) 05/19/18 05:54 Potassium 4.3 mEq/L (3.5-5.1) 05/19/18 05:54 Chloride 107 mEq/L (98-107) 05/19/18 05:54 Carbon Dioxide 25.5 mEq/L (21.0-31.0) 05/19/18 05:54 Anion Gap 8.8 (7.0-16.0) 05/19/18 05:54 BUN 26 mg/dL (7-25) H 05/19/18 05:54 Creatinine 1.3 mg/dL (0.7-1.3) 05/19/18 05:54 Est GFR ( Amer) > 60.0 ml/min (>90) 05/19/18 05:54 Est GFR (Non-Af Amer) 58.0 ml/min 05/19/18 05:54 BUN/Creatinine Ratio 20.0 05/19/18 05:54 Glucose 143 mg/dL (70-105) H 05/19/18 05:54 POC Glucose 174 MG/DL (70 - 105) H 05/19/18 12:06 Calcium 8.8 mg/dL (8.6-10.3) 05/19/18 05:54 - Physical Exam Vitals and I&O: Vital Signs Temp 96.4 F 05/19/18 12:27 Pulse 64 05/19/18 12:27 Resp 18 05/19/18 12:27 BP 141/70 05/19/18 12:27 Pulse Ox 97 05/19/18 12:27 Intake & Output 05/18/18 05/19/18 05/19/18 18:59 06:59 18:59 Intake Total 650 Output Total 1750 1050 400 Balance -1100 -1050 -400 Weight (lbs) 100.698 kg 99.79 kg 99.337 kg Intake: Oral 650 Output: Urine 1750 1050 400 Other: # Bowel Movements 0 0 0 Weight Source Bedscale Bedscale Bedscale Active Medications: Current Medications Acetaminophen (Tylenol) 650 mg PO Q4HR PRN PRN Reason: Pain or Fever >101 Stop: 07/16/18 07:50 Last Admin: 05/19/18 05:52 Dose: 650 mg Acetaminophen/Codeine Phosphate (Tylenol W/Codeine #3) 1 tab PO Q8H PRN PRN Reason: FOR PAIN IF TYLENOL INEFFECTIV Stop: 07/16/18 07:50 Last Admin: 05/18/18 18:24 Dose: 1 tab Albuterol/Ipratropium (Duoneb Neb) 3 ml HHN Q2H PRN PRN Reason: Wheezing Stop: 07/16/18 12:32 Last Admin: 05/17/18 12:39 Dose: 3 ml Allopurinol (Zyloprim) 100 mg PO DAILY [facility] Stop: 07/16/18 08:59 Last Admin: 05/19/18 09:08 Dose: 100 mg Amlodipine Besylate (Norvasc) 10 mg PO DAILY [facility] Stop: 07/16/18 08:59 Last Admin: 05/19/18 09:06 Dose: 10 mg Atorvastatin Calcium (Lipitor) 40 mg PO HS [facility] Stop: 07/16/18 20:59 Last Admin: 05/18/18 21:13 Dose: 40 mg Bisacodyl (Dulcolax 10 Mg Supp) 10 mg RC DAILY PRN PRN Reason: IF MOM INEFFECTIVE Stop: 07/16/18 07:50 Carvedilol (Coreg) 12.5 mg PO BID [facility] Stop: 07/16/18 08:59 Last Admin: 05/19/18 09:08 Dose: 12.5 mg Diphenhydramine HCl (Benadryl) 25 mg PO Q8HR [facility] Stop: 07/16/18 14:59 Last Admin: 05/19/18 12:33 Dose: 25 mg Docusate Sodium (Colace) 100 mg PO BID [facility] Stop: 07/16/18 08:59 Last Admin: 05/19/18 09:06 Dose: 100 mg Famotidine (Pepcid) 20 mg PO BID [facility] Stop: 07/16/18 08:59 Last Admin: 05/19/18 09:06 Dose: 20 mg Gabapentin (Neurontin) 300 mg PO DAILY [facility] Stop: 07/16/18 08:59 Last Admin: 05/19/18 09:06 Dose: 300 mg Guaifenesin/Dextromethorphan (Robitussin Dm) 10 ml PO Q6HR PRN PRN Reason: Cough Stop: 07/16/18 07:50 Last Admin: 05/17/18 20:30 Dose: 10 ml Hydromorphone HCl (Dilaudid) 2 mg IVP Q4HR PRN PRN Reason: Pain (Severe) Stop: 07/16/18 14:51 Last Admin: 05/19/18 12:34 Dose: 2 mg Dextrose/Sodium Chloride (D5-0.45ns) 1,000 mls @ 50 mls/hr IV .Q20H [facility] Stop: 07/16/18 08:14 Last Admin: 05/19/18 05:57 Dose: 50 mls/hr Insulin Aspart (Novolog Insulin Sliding Scale) 0 units SUBQ Q6HR [facility]; Protocol Stop: 07/16/18 11:59 Last Admin: 05/19/18 12:33 Dose: 2 units Lisinopril (Zestril) 5 mg PO DAILY [facility] Stop: 07/16/18 08:59 Last Admin: 05/19/18 09:08 Dose: 5 mg Loperamide HCl (Imodium) 2 mg PO Q6H PRN PRN Reason: Diarrhea Stop: 07/16/18 07:50 Magnesium Hydroxide (Milk Of Magnesia) 30 ml PO HS PRN PRN Reason: Constipation Stop: 07/16/18 07:50 Last Admin: 05/19/18 09:13 Dose: 30 ml Metformin HCl (Glucophage) 500 mg PO BIDWM [facility] Stop: 07/16/18 08:59 Last Admin: 05/19/18 09:12 Dose: 500 mg Multivitamins/Vitamin C (Theragran) 1 tab PO DAILY [facility] Stop: 07/16/18 08:59 Last Admin: 05/19/18 09:09 Dose: 1 tab Ondansetron HCl (Zofran) 4 mg IV Q6H PRN PRN Reason: Nausea / Vomiting Stop: 07/16/18 08:06 Oxybutynin Chloride (Ditropan) 5 mg PO BID [facility] Stop: 07/16/18 08:59 Last Admin: 05/19/18 09:12 Dose: 5 mg Psyllium Hydrophilic Mucilloid (Metamucil) 1 pkt PO DAILY PRN PRN Reason: BOWEL MANAGEMENT Stop: 07/16/18 07:50 Sodium Phosphate (Fleet Enema) 135 ml RC Q48H PRN PRN Reason: IF DULCOLAX INEFFECTIVE Stop: 07/16/18 07:50 Zolpidem Tartrate (Ambien) 5 mg PO HS PRN PRN Reason: Insomnia Stop: 07/16/18 07:50 Last Admin: 05/18/18 21:14 Dose: 5 mg General: No acute distress HEENT: Atraumatic Neck: Supple Cardiovascular: Regular rate, Normal S1, Normal S2 Lungs: Clear to auscultation Abdomen: Bowel sounds - Procedures Procedures: Procedures Procedure Code Date EXCISION OF CECUM, ENDO [id number] 05/03/18 EXCISION OF ESOPHAGUS, ENDO, DIAGN [id number] 05/03/18 EXCISION OF RECTUM, ENDO [id number] 05/03/18 EXCISION OF STOMACH, ENDO, DIAGN [id number] 05/03/18 EXTIRPATION OF MATTER FROM BLADDER, ENDO [id number] 05/03/18 Assessment/Plan - Plan Plan: cpm
--- NOTE | 2018-05-20 | Consultation ---
Consult Note - Consult Note Service Date: 05/19/18 Referring Physician: Lon Miller Consult Note: PHYSICIAN Consultation Note: Date of Admission: 05/17/18 Purpose of Consultation: UTI Chief Complaint: Patient PADMA AVALOS was admitted to location [facility] with GASTRO-ESOPHAGEAL REFLUX DISEASE. History of Present Illness: 68-year-old male admitted Obstructive uropathy 2/2 BPH. TURP performed on 2017. As there was concern for UTI ID consult was called for evalaution. Although, patient has no fever, no chills. Past Medical History: DM2. HTN, BPH. Allergies Allergy/AdvReac Type Severity Reaction Status Date / Time aspirin Allergy Verified 08/27/17 18:05 Vital Signs Temp 97.7 F 05/19/18 20:00 Pulse 62 05/19/18 20:00 Resp 18 05/19/18 20:00 BP 90/65 05/19/18 20:00 Pulse Ox 93 05/19/18 20:00 Intake & Output 05/19/18 05/19/18 05/20/18 06:59 18:59 06:59 Intake Total 1750 Output Total 1050 1325 Balance -1050 425 Weight (lbs) 99.79 kg 99.337 kg Intake: Oral 1750 Output: Urine 1050 1325 Other: # Bowel Movements 0 1 [facility] Laboratory Results - last 24 hr 05/19/18 05/19/18 05/19/18 00:39 05:54 05:54 WBC 8.4 RBC 3.17 L Hgb 9.7 L Hct 28.5 L MCV 89.8 MCH 30.4 MCHC Differential 33.9 RDW 13.3 Plt Count 201 MPV 9.8 Neutrophils % 68.8 Lymphocytes % 18.6 L Monocytes % 8.4 Eosinophils % 3.6 Basophils % 0.6 Sodium 137 Potassium 4.3 Chloride 107 Carbon Dioxide 25.5 Anion Gap 8.8 BUN 26 H Creatinine 1.3 Est GFR ( Amer) > 60.0 Est GFR (Non-Af Amer) 58.0 BUN/Creatinine Ratio 20.0 Glucose 143 H POC Glucose 153 H Calcium 8.8 05/19/18 05/19/18 05/19/18 06:11 12:06 17:57 WBC RBC Hgb Hct MCV MCH MCHC Differential RDW Plt Count MPV Neutrophils % Lymphocytes % Monocytes % Eosinophils % Basophils % Sodium Potassium Chloride Carbon Dioxide Anion Gap BUN Creatinine Est GFR ( Amer) Est GFR (Non-Af Amer) BUN/Creatinine Ratio Glucose POC Glucose 140 H 174 H 170 H Calcium Home Medication Medication Instructions Recorded Type APAP/Codeine 300 mg/30 mg [Tylenol 1 tab PO Q8H PRN 08/27/17 History W/Codeine #3] Acetaminophen [Tylenol Extra 1,000 mg PO Q4HR PRN 08/27/17 History Strength] Acetaminophen [Tylenol] 650 mg PO Q4HR PRN 08/27/17 History Atorvastatin Calcium [Lipitor] 40 mg PO HS 08/27/17 History Bisacodyl [Dulcolax 10 Mg Supp] 10 mg RC DAILY PRN 08/27/17 History Carvedilol [Coreg] 12.5 mg PO BID 08/27/17 History Clopidogrel [Plavix] 75 mg PO DAILY 08/27/17 History Docusate Sodium [Colace] 100 mg PO BID 08/27/17 History Famotidine [Pepcid] 20 mg PO BID 08/27/17 History Fleet Enema 135 ml RC Q48H PRN 08/27/17 History Gabapentin [Neurontin] 300 mg PO DAILY 08/27/17 History Guaifenesin DM [Robitussin DM] 10 ml PO Q6HR PRN 08/27/17 History Lisinopril 5 mg PO DAILY 08/27/17 History Loperamide [Imodium] 2 mg PO Q6H PRN 08/27/17 History Magnesium Hydroxide [Milk of 30 ml PO HS PRN 08/27/17 History Magnesia] Melatonin 10 mg PO HS 08/27/17 History Multivitamin [Multivitamins] 1 cap PO DAILY 08/27/17 History Psyllium [Metamucil] 1 pkt PO DAILY PRN 08/27/17 History Solifenacin Succinate [Vesicare] 5 mg PO DAILY 08/27/17 History amLODIPine Besylate [Norvasc*] 10 mg PO DAILY 08/27/17 History metFORMIN [Glucophage] 500 mg PO BID 08/27/17 History Insulin Aspart Sliding Scale See Protocol SUBQ Q6HR unit 08/30/17 Rx [NovoLOG INSULIN SLIDING SCALE] Zolpidem Tartrate [Ambien] 5 mg PO HS PRN tab 08/30/17 Rx Allopurinol [Zyloprim*] 100 mg PO DAILY 05/03/18 History Diphenhydramine HCl [Benadryl] 1 cap PO Q8HR 05/03/18 History Current Medications Generic Name Dose Route Start Last Admin Trade Name Freq PRN Reason Stop Dose Admin Acetaminophen 650 mg 05/17/18 07:51 05/19/18 05:52 Tylenol PO 07/16/18 07:50 650 mg Q4HR PRN Administration Pain or Fever >101 Acetaminophen/Codeine Phosphate 1 tab 05/17/18 07:51 05/18/18 18:24 Tylenol W/Codeine #3 PO 07/16/18 07:50 1 tab Q8H PRN Administration FOR PAIN IF TYLENOL INEFFECTIV Albuterol/Ipratropium 3 ml 05/17/18 12:33 05/17/18 12:39 Duoneb Neb HHN 07/16/18 12:32 3 ml Q2H PRN Administration Wheezing Allopurinol 100 mg 05/17/18 09:00 05/19/18 09:08 Zyloprim PO 07/16/18 08:59 100 mg DAILY [facility] Administration Amlodipine Besylate 10 mg 05/17/18 09:00 05/19/18 09:06 Norvasc PO 07/16/18 08:59 10 mg DAILY [facility] Administration Atorvastatin Calcium 40 mg 05/17/18 21:00 05/19/18 20:42 Lipitor PO 07/16/18 20:59 40 mg HS [facility] Administration Bisacodyl 10 mg 05/17/18 07:51 Dulcolax 10 Mg Supp RC 07/16/18 07:50 DAILY PRN IF MOM INEFFECTIVE Carvedilol 12.5 mg 05/17/18 09:00 05/19/18 17:04 Coreg PO 07/16/18 08:59 12.5 mg BID [facility] Administration Diphenhydramine HCl 25 mg 05/17/18 15:00 05/19/18 20:43 Benadryl PO 07/16/18 14:59 25 mg Q8HR [facility] Administration Docusate Sodium 100 mg 05/17/18 09:00 05/19/18 17:04 Colace PO 07/16/18 08:59 100 mg BID [facility] Administration Famotidine 20 mg 05/17/18 09:00 07/15/18 17:04 Pepcid PO 07/16/18 08:59 20 mg BID [facility] Administration Gabapentin 300 mg 05/17/18 09:00 05/19/18 09:06 Neurontin PO 07/16/18 08:59 300 mg DAILY [facility] Administration Guaifenesin/Dextromethorphan 10 ml 05/17/18 07:51 05/17/18 20:30 Robitussin Dm PO 07/16/18 07:50 10 ml Q6HR PRN Administration Cough Hydromorphone HCl 2 mg 05/17/18 14:52 05/19/18 17:09 Dilaudid IVP 07/16/18 14:51 2 mg Q4HR PRN Administration Pain (Severe) Dextrose/Sodium Chloride 1,000 mls @ 50 mls/hr 05/17/18 08:15 05/19/18 05:57 D5-0.45ns IV 07/16/18 08:14 50 mls/hr .Q20H [facility] Administration Insulin Aspart 0 units 05/17/18 12:00 05/19/18 18:02 Novolog Insulin Sliding Scale SUBQ 07/16/18 11:59 2 units Q6HR [facility] Administration Protocol Lisinopril 5 mg 05/17/18 09:00 05/19/18 09:08 Zestril PO 07/16/18 08:59 5 mg DAILY [facility] Administration Loperamide HCl 2 mg 05/17/18 07:51 Imodium PO 07/16/18 07:50 Q6H PRN Diarrhea Magnesium Hydroxide 30 ml 05/17/18 07:51 05/19/18 09:13 Milk Of Magnesia PO 07/16/18 07:50 30 ml HS PRN Administration Constipation Metformin HCl 500 mg 05/17/18 09:00 05/19/18 17:04 Glucophage PO 07/16/18 08:59 500 mg BIDWM [facility] Administration Multivitamins/Vitamin C 1 tab 05/17/18 09:00 05/19/18 09:09 Theragran PO 07/16/18 08:59 1 tab DAILY [facility] Administration Ondansetron HCl 4 mg 05/17/18 08:07 Zofran IV 07/16/18 08:06 Q6H PRN Nausea / Vomiting Oxybutynin Chloride 5 mg 05/17/18 09:00 05/19/18 17:04 Ditropan PO 07/16/18 08:59 5 mg BID [facility] Administration Psyllium Hydrophilic Mucilloid 1 pkt 05/17/18 07:51 Metamucil PO 07/16/18 07:50 DAILY PRN BOWEL MANAGEMENT Sodium Phosphate 135 ml 05/17/18 07:51 Fleet Enema RC 07/16/18 07:50 Q48H PRN IF DULCOLAX INEFFECTIVE Zolpidem Tartrate 5 mg 05/17/18 07:51 05/19/18 20:43 Ambien PO 07/16/18 07:50 5 mg HS PRN Administration Insomnia Review of Systems: A 12 point ROS was reviewed with the pertinent positive and negatives noted in the HPI. Social History Smoking Status Unknown if ever smoked Drug Use No Alcohol Use No Physical Exam: General: Comfortable, obese, not in any distress. HEENT: HEad: NC NT. ORal cavity: moist, pink tongue. Eyes no pallor, no icterus , pupioll PERRLA, EOMI. Neck: Supple, no JVD no carotid bruit.NO use of accessory neck muscle. Cardio: S1 and S2 WNL, no rub. Respiratory: CTAP Abdominal: Soft NT ND BS present. Genital/Urinary: Javier draining clear urine. Extremities: NCCE Neurological: AAOx3. Assessment: 1. BPH. 2. S/p TURP. 3. DM2. 4. CAD. 5. HTN 6. Gouty arthritis. 7. Hyperlipidemia. Plan: Will continue same treatment. Keep off antibiotics, get UA urine cultures,. Thank you, Dr Miller for involving me in taking care of this patient,. Tila, Christopher Infante M.D. [id number]
[2018-05-20] MEDS: INSULIN ASPART SLIDING SCALE 100 UNITS/ML UNIT SUBQ SCH ×5 (00:04→17:18)
[2018-05-20] MEDS: HYDROmorphone 2 mg/mL 1mL Vial IVP PRN ×2 (00:11→16:55)
[2018-05-20 05:06] LABS: % BASOPHILS 0.7 % (0.0-2.0); % EOSINOPHILS 3.6 % (0.0-5.0); % LYMPHOCYTES 18.1 % (20.0-50.0); % MONOCYTES 9.4 % (2.0-10.0); % NEUTROPHILS 68.2 % (40.0-80.0); BASOPHILE ABSOLUTE 0.1 Th/cumm (0-0.2); EOSINOPHILE ABSOLUTE 0.3 Th/cmm (0.1-0.4); HEMATOCRIT 28.2 % (41.0-60); HEMOGLOBIN 9.3 gm/dL (12-16); LYMPHOCYTE ABSOLUTE 1.7 Th/cmm (1.5-3.0); MEAN CORPUSCULAR HEMOGLOBIN 29.7 pg (27.0-31.0); MEAN PLATELET VOLUME 9.7 fl; MONOCYTE ABSOLUTE 0.9 Th/cmm (0.3-1.0); NEUTROPHILE ABSOLUTE 6.3 Th/cmm (1.8-8.0); PLATELET COUNT 221 Th/cmm (150-400); RED BLOOD COUNT 3.13 Mil/cmm (3.80-5.80); RED CELL DISTRIBUTION WIDTH 13.4 % (11.5-20.0); WHITE BLOOD COUNT 9.3 Th/cmm (4.8-10.8)
[2018-05-20 05:24] LABS: ANION GAP 10.2 (7.0-16.0); CALCIUM SERUM 8.7 mg/dL (8.6-10.3); CARBON DIOXIDE 24.4 mEq/L (21.0-31.0); CREATININE - SERUM 1.9 mg/dL (0.7-1.3); GFR AFRICAN-AMERICAN 45.3 ml/min (>90); GFR NON AFRICAN-AMERICAN 37.4 ml/min; POTASSIUM SERUM 4.6 mEq/L (3.5-5.1)
[2018-05-20] MEDS: Multivitamin Tab PO SCH (08:16)
[2018-05-20] MEDS: Sodium Chloride 0.45% 1,000 ML IV SCH ×2 (12:17→20:54)
[2018-05-20] MEDS: APAP/Codeine 300 mg/30 mg Tab PO PRN (13:41)
[2018-05-20 15:22] LABS: URINE MICROSCOPIC INDICATED? YES; URINE SOURCE FOLEY PORT
[2018-05-20 15:24] LABS: URINE BILIRUBIN NEGATIVE (NEGATIVE); URINE BLOOD LARGE (NEGATIVE); URINE GLUCOSE (UA) NEGATIVE (NEGATIVE); URINE KETONE NEGATIVE (NEGATIVE); URINE LEUKOCYTE ESTERASE MODERATE (NEGATIVE); URINE NITRATE NEGATIVE (NEGATIVE); URINE PROTEIN 100 mg/dL (NEGATIVE); URINE UROBILINOGEN 0.2 E.U./dL (0.2 - 1.0)
[2018-05-20 15:37] LABS: URINE CLARITY HAZY (CLEAR); URINE COLOR BROWN
[2018-05-20 15:39] LABS: URINE BACTERIA NONE SEEN /hpf (NONE SEEN); URINE EPITHELIAL CELLS NONE SEEN /lpf (FEW); URINE RBC 25-50 /hpf (0-5)
--- NOTE | 2018-05-20 16:12 | General Progress Note ---
Subjective - Review of Systems Events since last encounter: patient doing well denies cp Objective - Results Result Diagrams: 05/20/18 04:40 05/20/18 04:40 Recent Labs: Laboratory Last Values WBC 9.3 Th/cmm (4.8-10.8) 05/20/18 04:40 RBC 3.13 Mil/cmm (3.80-5.80) L 05/20/18 04:40 Hgb 9.3 gm/dL (12-16) L 05/20/18 04:40 Hct 28.2 % (41.0-60) L 05/20/18 04:40 MCV 90.0 fl (80-99) 05/20/18 04:40 MCH 29.7 pg (27.0-31.0) 05/20/18 04:40 MCHC Differential 33.0 pg (28.0-36.0) 05/20/18 04:40 RDW 13.4 % (11.5-20.0) 05/20/18 04:40 Plt Count 221 Th/cmm (150-400) 05/20/18 04:40 MPV 9.7 fl 05/20/18 04:40 Neutrophils % 68.2 % (40.0-80.0) 05/20/18 04:40 Lymphocytes % 18.1 % (20.0-50.0) L 05/20/18 04:40 Monocytes % 9.4 % (2.0-10.0) 05/20/18 04:40 Eosinophils % 3.6 % (0.0-5.0) 05/20/18 04:40 Basophils % 0.7 % (0.0-2.0) 05/20/18 04:40 PT 10.9 SECONDS (9.5-11.5) 05/17/18 08:30 INR 1.05 (0.5-1.4) 05/17/18 08:30 PTT (Actin FS) 24.7 SECONDS (26.0-38.0) L 05/17/18 08:30 Sodium 138 mEq/L (136-145) 05/20/18 04:40 Potassium 4.6 mEq/L (3.5-5.1) 05/20/18 04:40 Chloride 108 mEq/L (98-107) H 05/20/18 04:40 Carbon Dioxide 24.4 mEq/L (21.0-31.0) 05/20/18 04:40 Anion Gap 10.2 (7.0-16.0) 05/20/18 04:40 BUN 29 mg/dL (7-25) H 05/20/18 04:40 Creatinine 1.9 mg/dL (0.7-1.3) H 05/20/18 04:40 Est GFR ( Amer) 45.3 ml/min (>90) 05/20/18 04:40 Est GFR (Non-Af Amer) 37.4 ml/min 05/20/18 04:40 BUN/Creatinine Ratio 15.3 05/20/18 04:40 Glucose 133 mg/dL (70-105) H 05/20/18 04:40 POC Glucose 169 MG/DL (70 - 105) H 05/20/18 11:23 Calcium 8.7 mg/dL (8.6-10.3) 05/20/18 04:40 Urine Source [place] 05/20/18 15:10 Urine Color BROWN 05/20/18 15:10 Urine Clarity HAZY (CLEAR) 05/20/18 15:10 Urine pH 6.0 (4.6 - 8.0) 05/20/18 15:10 Ur Specific [place] 1.015 (1.005-1.030) 05/20/18 15:10 Urine Protein 100 mg/dL (NEGATIVE) H 05/20/18 15:10 Urine Glucose (UA) NEGATIVE mg/dL (NEGATIVE) 05/20/18 15:10 Urine Ketones NEGATIVE mg/dL (NEGATIVE) 05/20/18 15:10 Urine Blood LARGE (NEGATIVE) H 05/20/18 15:10 Urine Nitrate NEGATIVE (NEGATIVE) 05/20/18 15:10 Urine Bilirubin NEGATIVE (NEGATIVE) 05/20/18 15:10 Urine Urobilinogen 0.2 E.U./dL (0.2 - 1.0) 05/20/18 15:10 Ur Leukocyte Esterase MODERATE (NEGATIVE) H 05/20/18 15:10 Urine RBC 25-50 /hpf (0-5) H 05/20/18 15:10 Urine WBC 6-10 /hpf (0-5) 05/20/18 15:10 Ur Epithelial Cells NONE SEEN /lpf (FEW) 05/20/18 15:10 Urine Bacteria NONE SEEN /hpf (NONE SEEN) 05/20/18 15:10 Ur Random Sodium 66 mmol/L 05/20/18 15:10 Urine Creatinine 61.0 mg/dl (39.0-259.0) 05/20/18 15:10 - Physical Exam Vitals and I&O: Vital Signs Temp 98.8 F 05/20/18 16:00 Pulse 65 05/20/18 16:00 Resp 20 05/20/18 16:00 BP 124/65 05/20/18 16:00 Pulse Ox 96 05/20/18 16:00 Intake & Output 05/19/18 05/20/18 05/20/18 18:59 06:59 18:59 Intake Total 1750 200 Output Total 1325 550 Balance 425 -350 Weight (lbs) 99.337 kg 99.337 kg Intake: Oral 1750 200 Output: Urine 1325 550 Other: # Bowel Movements 1 Stool Characteristics Soft Formed Weight Source Bedscale Estimated Active Medications: Current Medications Acetaminophen (Tylenol) 650 mg PO Q4HR PRN PRN Reason: Pain or Fever >101 Stop: 07/16/18 07:50 Last Admin: 05/19/18 05:52 Dose: 650 mg Acetaminophen/Codeine Phosphate (Tylenol W/Codeine #3) 1 tab PO Q8H PRN PRN Reason: FOR PAIN IF TYLENOL INEFFECTIV Stop: 07/16/18 07:50 Last Admin: 05/20/18 13:41 Dose: 1 tab Albuterol/Ipratropium (Duoneb Neb) 3 ml HHN Q2H PRN PRN Reason: Wheezing Stop: 07/16/18 12:32 Last Admin: 05/17/18 12:39 Dose: 3 ml Allopurinol (Zyloprim) 100 mg PO DAILY [facility] Stop: 07/16/18 08:59 Last Admin: 05/20/18 08:14 Dose: 100 mg Amlodipine Besylate (Norvasc) 10 mg PO DAILY [facility] Stop: 07/16/18 08:59 Last Admin: 05/20/18 08:13 Dose: 10 mg Atorvastatin Calcium (Lipitor) 40 mg PO HS [facility] Stop: 07/16/18 20:59 Last Admin: 05/19/18 20:42 Dose: 40 mg Bisacodyl (Dulcolax 10 Mg Supp) 10 mg RC DAILY PRN PRN Reason: IF MOM INEFFECTIVE Stop: 07/16/18 07:50 Carvedilol (Coreg) 12.5 mg PO BID [facility] Stop: 07/16/18 08:59 Last Admin: 05/20/18 08:14 Dose: 12.5 mg Diphenhydramine HCl (Benadryl) 25 mg PO Q8HR [facility] Stop: 07/16/18 14:59 Last Admin: 05/20/18 12:26 Dose: 25 mg Docusate Sodium (Colace) 100 mg PO BID [facility] Stop: 07/16/18 08:59 Last Admin: 05/20/18 08:13 Dose: 100 mg Famotidine (Pepcid) 20 mg PO BID [facility] Stop: 07/16/18 08:59 Last Admin: 05/20/18 08:14 Dose: 20 mg Gabapentin (Neurontin) 300 mg PO DAILY [facility] Stop: 07/16/18 08:59 Last Admin: 05/20/18 08:14 Dose: 300 mg Guaifenesin/Dextromethorphan (Robitussin Dm) 10 ml PO Q6HR PRN PRN Reason: Cough Stop: 07/16/18 07:50 Last Admin: 05/17/18 20:30 Dose: 10 ml Hydromorphone HCl (Dilaudid) 2 mg IVP Q4HR PRN PRN Reason: Pain (Severe) Stop: 07/16/18 14:51 Last Admin: 05/20/18 00:11 Dose: 2 mg Sodium Chloride (Nacl 0.45%) 1,000 mls @ 125 mls/hr IV .Q8H [facility] Stop: 07/19/18 11:29 Last Admin: 05/20/18 12:17 Dose: 125 mls/hr Insulin Aspart (Novolog Insulin Sliding Scale) 0 units SUBQ Q6HR [facility]; Protocol Stop: 07/16/18 11:59 Last Admin: 05/20/18 12:20 Dose: 2 units Lisinopril (Zestril) 5 mg PO DAILY [facility] Stop: 07/16/18 08:59 Last Admin: 05/20/18 08:13 Dose: 5 mg Loperamide HCl (Imodium) 2 mg PO Q6H PRN PRN Reason: Diarrhea Stop: 07/16/18 07:50 Magnesium Hydroxide (Milk Of Magnesia) 30 ml PO HS PRN PRN Reason: Constipation Stop: 07/16/18 07:50 Last Admin: 05/19/18 09:13 Dose: 30 ml Multivitamins/Vitamin C (Theragran) 1 tab PO DAILY [facility] Stop: 07/16/18 08:59 Last Admin: 05/20/18 08:16 Dose: 1 tab Ondansetron HCl (Zofran) 4 mg IV Q6H PRN PRN Reason: Nausea / Vomiting Stop: 07/16/18 08:06 Oxybutynin Chloride (Ditropan) 5 mg PO BID [facility] Stop: 07/16/18 08:59 Last Admin: 05/20/18 08:14 Dose: 5 mg Psyllium Hydrophilic Mucilloid (Metamucil) 1 pkt PO DAILY PRN PRN Reason: BOWEL MANAGEMENT Stop: 07/16/18 07:50 Sodium Phosphate (Fleet Enema) 135 ml RC Q48H PRN PRN Reason: IF DULCOLAX INEFFECTIVE Stop: 07/16/18 07:50 Zolpidem Tartrate (Ambien) 5 mg PO HS PRN PRN Reason: Insomnia Stop: 07/16/18 07:50 Last Admin: 05/19/18 20:43 Dose: 5 mg General: No acute distress HEENT: Atraumatic Neck: Supple Cardiovascular: Regular rate, Normal S1, Normal S2 Lungs: Clear to auscultation Abdomen: Bowel sounds - Procedures Procedures: Procedures Procedure Code Date EXCISION OF CECUM, ENDO [id number] 05/03/18 EXCISION OF ESOPHAGUS, ENDO, DIAGN [id number] 05/03/18 EXCISION OF RECTUM, ENDO [id number] 05/03/18 EXCISION OF STOMACH, ENDO, DIAGN [id number] 05/03/18 EXTIRPATION OF MATTER FROM BLADDER, ENDO [id number] 05/03/18 RESECTION OF PROSTATE, ENDO [id number] 05/17/18 Assessment/Plan - Plan Plan: [facility]
[2018-05-20 16:37] LABS: EOSINOPHIL SMEAR SOURCE URINE; EOSINOPHILS SMEAR COUNT NONE SEEN (NONE SEEN)
[2018-05-21] MEDS: INSULIN ASPART SLIDING SCALE 100 UNITS/ML UNIT SUBQ SCH ×6 (03:01→23:50)
[2018-05-21 05:05] LABS: % BASOPHILS 0.7 % (0.0-2.0); % EOSINOPHILS 5.5 % (0.0-5.0); % LYMPHOCYTES 23.3 % (20.0-50.0); % MONOCYTES 8.8 % (2.0-10.0); % NEUTROPHILS 61.7 % (40.0-80.0); BASOPHILE ABSOLUTE 0.1 Th/cumm (0-0.2); EOSINOPHILE ABSOLUTE 0.4 Th/cmm (0.1-0.4); HEMOGLOBIN 8.8 gm/dL (12-16); LYMPHOCYTE ABSOLUTE 1.7 Th/cmm (1.5-3.0); MEAN CELL VOLUME 90.9 fl (80-99); MEAN CORPUSCULAR HEMOGLOBIN 29.7 pg (27.0-31.0); MEAN CORPUSCULAR HGB CONC 32.7 pg (28.0-36.0); MEAN PLATELET VOLUME 10.2 fl; MONOCYTE ABSOLUTE 0.7 Th/cmm (0.3-1.0); NEUTROPHILE ABSOLUTE 4.5 Th/cmm (1.8-8.0); PLATELET COUNT 228 Th/cmm (150-400); RED BLOOD COUNT 2.97 Mil/cmm (3.80-5.80); RED CELL DISTRIBUTION WIDTH 13.3 % (11.5-20.0); WHITE BLOOD COUNT 7.4 Th/cmm (4.8-10.8)
[2018-05-21 05:25] LABS: ALB/GLOB RATIO 0.8 (1.0-1.8); ALBUMIN 2.7 gm/dL (4.2-5.5); ANION GAP 10.2 (7.0-16.0); BILIRUBIN,TOTAL 0.3 mg/dL (0.3-1.0); CALCIUM SERUM 8.6 mg/dL (8.6-10.3); CARBON DIOXIDE 24.2 mEq/L (21.0-31.0); CREATININE - SERUM 1.5 mg/dL (0.7-1.3); GFR AFRICAN-AMERICAN 59.5 ml/min (>90); GFR NON AFRICAN-AMERICAN 49.2 ml/min; MAGNESIUM 1.7 mg/dL (1.9-2.7); PHOSPHOROUS 3.2 mg/dL (2.5-5.0); POTASSIUM SERUM 4.4 mEq/L (3.5-5.1); TOTAL PROTEIN,SERUM 5.9 gm/dL (6.0-8.3); URIC ACID 7.6 mg/dL (4.4-7.6)
[2018-05-21] MEDS: Sodium Chloride 0.45% 1,000 ML IV SCH ×3 (05:31→20:14)
[2018-05-21] MEDS: HYDROmorphone 2 mg/mL 1mL Vial IVP PRN ×3 (05:55→20:32)
--- NOTE | 2018-05-21 06:26 | Consultation ---
DATE OF CONSULTATION: 05/20/2018 REASON FOR CONSULTATION: Worsening kidney function, electrolyte imbalance, and fluid management. HISTORY OF PRESENT ILLNESS: This is a 68-year-old male with past medical history of outlet obstruction secondary to BPH, status post TURP, who came in because of gross hematuria. Two days prior to admission, the patient underwent successful TURP. Two days prior to admission, he developed gross hematuria and was readmitted. He underwent bladder irrigation. His hemoglobin/hematocrit remained stable at 9.2/28.2. He was admitted with a BUN/creatinine of 28/1.2. His BUN/creatinine today were 29/1.9. He has no history of nausea and vomiting as well as diarrhea. PAST MEDICAL HISTORY: 1. Chronic kidney disease. 2. Essential hypertension. 3. Degenerative joint disease. 4. Gouty arthritis. 5. Dyslipidemia. 6. CAD. 7. GERD. 8. Type 2 diabetes mellitus. 9. Diabetic neuropathy. 10. Bilateral renal calculi. CURRENT MEDICATIONS: He is currently on acetaminophen, albuterol/ipratropium, Zyloprim, amlodipine, atorvastatin, bisacodyl, carvedilol, diphenhydramine, docusate sodium, famotidine, gabapentin, hydromorphone, aspart, lisinopril, loperamide, multivitamins, oxybutynin, Metamucil, Ambien. ALLERGIES: ASPIRIN. SOCIAL HISTORY: No history of alcohol or tobacco use. FAMILY HISTORY: Noncontributory to present illness. REVIEW OF SYSTEMS: CONSTITUTIONAL: Denies any fever or chills, fair appetite. No headaches. HEENT: Occasional headaches, no dizziness. Vision is poor due to age. CARDIORESPIRATORY: No shortness of breath, chest pain, palpitations, diaphoresis, or cough. He does have essential hypertension and CAD. GASTROINTESTINAL: No nausea, vomiting, abdominal pain, cramping, hematemesis, melena, hematochezia, or diarrhea. ENDOCRINE: He does have a history of diabetes, no thyroid abnormalities. Has dyslipidemia. MUSCULOSKELETAL: History of degenerative joint disease as well as gout. GENITOURINARY: History of chronic kidney disease with bilateral renal calculi and BPH. HEMATOLOGIC: History of anemia of chronic kidney disease. NEUROPSYCH: Has a history of diabetic neuropathy, but no seizure activity nor syncopal episode. PHYSICAL EXAMINATION: GENERAL: The patient is alert, verbal, comfortable. VITAL SIGNS: Blood pressure is 117/59, pulse 69, and temperature 98.6 degrees. SKIN: Poor turgor, warm, no rash, no jaundice appreciated. HEENT: Head normocephalic, atraumatic. Eyes: Extraocular muscles intact. Pupils equal, round, reactive to light and accommodates. Anicteric sclerae. Pale conjunctivae. Nose, midline nasal septum. Mouth, dry mucosa with good dentition. NECK: Supple, no adenopathy, no thyromegaly, no bruits. Trachea palpated in the midline. CHEST AND CARDIOVASCULAR: S1, S2. No rub, murmur, no gallop appreciated. Point of maximal impulse fifth intercostal space, left midclavicular line. No abdominal or femoral bruits appreciated. LUNGS: Equal expansion. No use of accessory muscles. No supraclavicular retractions. Decreased breath sounds, but clear to auscultation without any wheeze. ABDOMEN: Mildly globular, soft. Positive for bowel sounds. No bruits either diastolic or systolic. RECTAL: The patient refused. GENITOURINARY: Normal appearing male genitalia with indwelling Javier catheter, dark david urine output. EXTREMITIES: No evidence of any edema, cyanosis, nor clubbing. NEUROLOGIC: The patient is alert, verbal, motor is 5/5. Cranial nerves III through XII intact. Sensory intact. LABORATORY DATA AND STUDIES: Did reveal white count 9.3, hemoglobin 9.3, hematocrit 28.2, sodium 138, potassium 4.6, chloride 108, bicarbonate 24, BUN 29, creatinine 1.9, and calcium 8.7. IMPRESSION: 1. Acute kidney injury on chronic kidney disease, MDRD of 37 mL per minute, stage III. The patient's chronic kidney disease secondary to diabetic nephropathy with longstanding history of diabetes as well as hypertensive nephrosclerosis and the possibility also of chronic obstructive uropathy with history of benign prostatic hypertrophy. Acute kidney injury is possibly due to prerenal in the form of postobstructive diuresis without adequate replacement of fluid loss; however, also need to consider obstructive uropathy secondary to development of clots. 2. Gross hematuria secondary to TURP. 3. Benign prostatic hypertrophy, status post TURP. 4. Bilateral renal calculi. 5. Essential hypertension. 6. Degenerative joint disease. 7. Gout. 8. Dyslipidemia. 9. Coronary artery disease. 10. Gastroesophageal reflux disease. 11. Type 2 diabetes mellitus. 12. Diabetic neuropathy. 13. Bilateral renal calculi. PLAN: 1. Continue with IV hydration. 2. Follow up electrolytes. 3. Follow up CBC. 4. Hold irrigation for now since urine color has improved to a dark david yellow. JOB# [id number]
--- NOTE | 2018-05-21 08:45 | Diagnostic Imaging Report ---
Renal ultrasound HISTORY: Acute renal failure. COMPARISON: CT abdomen and pelvis on 05/05/2018 ultrasound abdomen on 05/04/2018 Technique: Sonography of the kidneys and urinary bladder was performed in multiple planes. FINDINGS: Exam is limited due to body habitus and bowel gas. The right kidney measures 12.9 x 7.2 cm demonstrates severe hydronephrosis with cortical thinning. No discrete focal lesions. The left kidney measures 12.9 x 7.5 cm demonstrating severe hydronephrosis and cortical thinning. There is a 1.8 cm echogenic focus of the superior pole. The urinary bladder contains a Javier catheter. There is echogenic area along the superior aspect of the urinary bladder, indeterminate and possibly a calcification. This measures 2.1 cm. Post void residual bladder volume is 21 mL's. IMPRESSION: Severe bilateral hydronephrosis. A Javier catheter is noted within the urinary bladder. No evidence of elevated postvoid residual bladder volumes. 1.8 cm echogenic focus of the left superior kidney possibly a renal stone, when compared to previous CT exam. Nonspecific 2.1 cm echogenic focus within or adjacent to the urinary bladder and possibly a calcification.
[2018-05-21] MEDS: Multivitamin Tab PO SCH (08:53)
--- NOTE | 2018-05-21 08:53 | Infectious Disease Prog Note ---
Infectious Disease Subjective - Review of Systems Service Date: 05/21/18 Subjective: no new change, no fever, Infectious Disease Objective - Results Result Diagrams: 05/21/18 04:20 05/21/18 04:20 Recent Labs: Laboratory Last Values WBC 7.4 Th/cmm (4.8-10.8) 05/21/18 04:20 RBC 2.97 Mil/cmm (3.80-5.80) L 05/21/18 04:20 Hgb 8.8 gm/dL (12-16) L 05/21/18 04:20 Hct 27.0 % (41.0-60) L 05/21/18 04:20 MCV 90.9 fl (80-99) 05/21/18 04:20 MCH 29.7 pg (27.0-31.0) 05/21/18 04:20 MCHC Differential 32.7 pg (28.0-36.0) 05/21/18 04:20 RDW 13.3 % (11.5-20.0) 05/21/18 04:20 Plt Count 228 Th/cmm (150-400) 05/21/18 04:20 MPV 10.2 fl 05/21/18 04:20 Neutrophils % 61.7 % (40.0-80.0) 05/21/18 04:20 Lymphocytes % 23.3 % (20.0-50.0) 05/21/18 04:20 Monocytes % 8.8 % (2.0-10.0) 05/21/18 04:20 Eosinophils % 5.5 % (0.0-5.0) H 05/21/18 04:20 Basophils % 0.7 % (0.0-2.0) 05/21/18 04:20 Eos Smear Source URINE 05/20/18 15:10 Eos Smear Total Cells NONE SEEN (NONE SEEN) 05/20/18 15:10 PT 10.9 SECONDS (9.5-11.5) 05/17/18 08:30 INR 1.05 (0.5-1.4) 05/17/18 08:30 PTT (Actin FS) 24.7 SECONDS (26.0-38.0) L 05/17/18 08:30 Sodium 136 mEq/L (136-145) 05/21/18 04:20 Potassium 4.4 mEq/L (3.5-5.1) 05/21/18 04:20 Chloride 106 mEq/L (98-107) 05/21/18 04:20 Carbon Dioxide 24.2 mEq/L (21.0-31.0) 05/21/18 04:20 Anion Gap 10.2 (7.0-16.0) 05/21/18 04:20 BUN 31 mg/dL (7-25) H 05/21/18 04:20 Creatinine 1.5 mg/dL (0.7-1.3) H 05/21/18 04:20 Est GFR ( Amer) 59.5 ml/min (>90) 05/21/18 04:20 Est GFR (Non-Af Amer) 49.2 ml/min 05/21/18 04:20 BUN/Creatinine Ratio 20.7 05/21/18 04:20 Glucose 153 mg/dL (70-105) H 05/21/18 04:20 POC Glucose 139 MG/DL (70 - 105) H 05/21/18 06:02 Uric Acid 7.6 mg/dL (4.4-7.6) 05/21/18 04:20 Calcium 8.6 mg/dL (8.6-10.3) 05/21/18 04:20 Phosphorus 3.2 mg/dL (2.5-5.0) 05/21/18 04:20 Magnesium 1.7 mg/dL (1.9-2.7) L 05/21/18 04:20 Total Bilirubin 0.3 mg/dL (0.3-1.0) 05/21/18 04:20 AST 19 U/L (13-39) 05/21/18 04:20 ALT 39 U/L (7-52) 05/21/18 04:20 Alkaline Phosphatase 82 U/L (34-104) 05/21/18 04:20 Total Protein 5.9 gm/dL (6.0-8.3) L 05/21/18 04:20 Albumin 2.7 gm/dL (4.2-5.5) L 05/21/18 04:20 Globulin 3.2 gm/dL 05/21/18 04:20 Albumin/Globulin Ratio 0.8 (1.0-1.8) L 05/21/18 04:20 Urine Source HUYNH [place] 05/20/18 15:10 Urine Color BROWN 05/20/18 15:10 Urine Clarity HAZY (CLEAR) 05/20/18 15:10 Urine pH 6.0 (4.6 - 8.0) 05/20/18 15:10 Ur Specific [place] 1.015 (1.005-1.030) 05/20/18 15:10 Urine Protein 100 mg/dL (NEGATIVE) H 05/20/18 15:10 Urine Glucose (UA) NEGATIVE mg/dL (NEGATIVE) 05/20/18 15:10 Urine Ketones NEGATIVE mg/dL (NEGATIVE) 05/20/18 15:10 Urine Blood LARGE (NEGATIVE) H 05/20/18 15:10 Urine Nitrate NEGATIVE (NEGATIVE) 05/20/18 15:10 Urine Bilirubin NEGATIVE (NEGATIVE) 05/20/18 15:10 Urine Urobilinogen 0.2 E.U./dL (0.2 - 1.0) 05/20/18 15:10 Ur Leukocyte Esterase MODERATE (NEGATIVE) H 05/20/18 15:10 Urine RBC 25-50 /hpf (0-5) H 05/20/18 15:10 Urine WBC 6-10 /hpf (0-5) 05/20/18 15:10 Ur Epithelial Cells NONE SEEN /lpf (FEW) 05/20/18 15:10 Urine Bacteria NONE SEEN /hpf (NONE SEEN) 05/20/18 15:10 Ur Random Sodium 66 mmol/L 05/20/18 15:10 Urine Creatinine 61.0 mg/dl (39.0-259.0) 05/20/18 15:10 - Physical Exam Vitals and I&O: Vital Signs Temp 98.0 F 05/21/18 07:58 Pulse 64 05/21/18 07:58 Resp 18 05/21/18 07:58 BP 125/62 05/21/18 07:58 Pulse Ox 95 05/21/18 07:58 Intake & Output 05/20/18 05/21/18 05/21/18 18:59 06:59 18:59 Intake Total 500 2000 Output Total 1200 Balance -700 2000 Weight (lbs) 99.337 kg Intake: Intake, IV Amount 2000 Sodium Chloride 0.45% 1, 1999 000 ml @ 125 mls/hr IV . Q8H [facility] Rx#:[id number] Oral 500 Output: Urine 1200 Other: # Bowel Movements 1 Stool Characteristics Soft Soft Formed Formed Weight Source Bedscale Active Medications: Current Medications Acetaminophen (Tylenol) 650 mg PO Q4HR PRN PRN Reason: Pain or Fever >101 Stop: 07/16/18 07:50 Last Admin: 05/19/18 05:52 Dose: 650 mg Acetaminophen/Codeine Phosphate (Tylenol W/Codeine #3) 1 tab PO Q8H PRN PRN Reason: FOR PAIN IF TYLENOL INEFFECTIV Stop: 07/16/18 07:50 Last Admin: 05/20/18 13:41 Dose: 1 tab Albuterol/Ipratropium (Duoneb Neb) 3 ml HHN Q2H PRN PRN Reason: Wheezing Stop: 07/16/18 12:32 Last Admin: 05/17/18 12:39 Dose: 3 ml Allopurinol (Zyloprim) 100 mg PO DAILY ST[facility]O Stop: 07/16/18 08:59 Last Admin: 05/20/18 08:14 Dose: 100 mg Amlodipine Besylate (Norvasc) 10 mg PO DAILY ST[facility]ANO Stop: 07/16/18 08:59 Last Admin: 05/20/18 08:13 Dose: 10 mg Atorvastatin Calcium (Lipitor) 40 mg PO HS [facility] Stop: 07/16/18 20:59 Last Admin: 05/20/18 20:53 Dose: 40 mg Bisacodyl (Dulcolax 10 Mg Supp) 10 mg RC DAILY PRN PRN Reason: IF MOM INEFFECTIVE Stop: 07/16/18 07:50 Carvedilol (Coreg) 12.5 mg PO BID [facility] Stop: 07/16/18 08:59 Last Admin: 05/20/18 16:12 Dose: 12.5 mg Diphenhydramine HCl (Benadryl) 25 mg PO Q8HR [facility] Stop: 07/16/18 14:59 Last Admin: 05/21/18 05:29 Dose: 25 mg Docusate Sodium (Colace) 100 mg PO BID [facility] Stop: 07/16/18 08:59 Last Admin: 05/20/18 16:21 Dose: Not Given Famotidine (Pepcid) 20 mg PO BID [facility] Stop: 07/16/18 08:59 Last Admin: 05/20/18 16:12 Dose: 20 mg Gabapentin (Neurontin) 300 mg PO DAILY [facility] Stop: 07/16/18 08:59 Last Admin: 05/20/18 08:14 Dose: 300 mg Guaifenesin/Dextromethorphan (Robitussin Dm) 10 ml PO Q6HR PRN PRN Reason: Cough Stop: 07/16/18 07:50 Last Admin: 05/17/18 20:30 Dose: 10 ml Hydromorphone HCl (Dilaudid) 2 mg IVP Q4HR PRN PRN Reason: Pain (Severe) Stop: 07/16/18 14:51 Last Admin: 05/21/18 05:55 Dose: 2 mg Sodium Chloride (Nacl 0.45%) 1,000 mls @ 125 mls/hr IV .Q8H [facility] Stop: 07/19/18 11:29 Last Admin: 05/21/18 05:31 Dose: 125 mls/hr Insulin Aspart (Novolog Insulin Sliding Scale) 0 units SUBQ Q6HR [facility]; Protocol Stop: 07/16/18 11:59 Last Admin: 05/21/18 06:03 Dose: Not Given Lisinopril (Zestril) 5 mg PO DAILY [facility] Stop: 07/16/18 08:59 Last Admin: 05/20/18 08:13 Dose: 5 mg Loperamide HCl (Imodium) 2 mg PO Q6H PRN PRN Reason: Diarrhea Stop: 07/16/18 07:50 Magnesium Hydroxide (Milk Of Magnesia) 30 ml PO HS PRN PRN Reason: Constipation Stop: 07/16/18 07:50 Last Admin: 05/19/18 09:13 Dose: 30 ml Multivitamins/Vitamin C (Theragran) 1 tab PO DAILY [facility] Stop: 07/16/18 08:59 Last Admin: 05/20/18 08:16 Dose: 1 tab Ondansetron HCl (Zofran) 4 mg IV Q6H PRN PRN Reason: Nausea / Vomiting Stop: 07/16/18 08:06 Oxybutynin Chloride (Ditropan) 5 mg PO BID [facility] Stop: 07/16/18 08:59 Last Admin: 05/20/18 16:12 Dose: 5 mg Psyllium Hydrophilic Mucilloid (Metamucil) 1 pkt PO DAILY PRN PRN Reason: BOWEL MANAGEMENT Stop: 07/16/18 07:50 Sodium Phosphate (Fleet Enema) 135 ml RC Q48H PRN PRN Reason: IF DULCOLAX INEFFECTIVE Stop: 07/16/18 07:50 Zolpidem Tartrate (Ambien) 5 mg PO HS PRN PRN Reason: Insomnia Stop: 07/16/18 07:50 Last Admin: 05/19/18 20:43 Dose: 5 mg General: no acute distress, well developed, well nourished HEENT: atraumatic, normocephalic, PERRLA, EOMI Neck: supple, no thyromegaly Cardiovascular: S1S2, regular Lungs: clear to auscultation bilaterally, clear to percussion Abdomen: soft, other (huynh with clear urine.), no tender, no distended, no mass Extremities: no cyanosis, no clubbing, no edema Neurological: awake, alert, oriented Skin: intact - Procedures Procedures: Procedures Procedure Code Date EXCISION OF CECUM, ENDO [id number] 05/03/18 EXCISION OF ESOPHAGUS, ENDO, DIAGN [id number] 05/03/18 EXCISION OF RECTUM, ENDO [id number] 05/03/18 EXCISION OF STOMACH, ENDO, DIAGN [id number] 05/03/18 EXTIRPATION OF MATTER FROM BLADDER, ENDO [id number] 05/03/18 RESECTION OF PROSTATE, ENDO [id number] 05/17/18 Infectious Disease Assmt/Plan - Assessment Assessment: BPH. Hematuria 2/2 surgery - Plan Plan: No need of antibiotics.
--- NOTE | 2018-05-21 13:40 | General Progress Note ---
Subjective - Review of Systems Service Date: 05/21/18 Subjective: alert, better spirits today Objective - Results Result Diagrams: 05/21/18 04:20 05/21/18 04:20 Recent Labs: Laboratory Last Values WBC 7.4 Th/cmm (4.8-10.8) 05/21/18 04:20 RBC 2.97 Mil/cmm (3.80-5.80) L 05/21/18 04:20 Hgb 8.8 gm/dL (12-16) L 05/21/18 04:20 Hct 27.0 % (41.0-60) L 05/21/18 04:20 MCV 90.9 fl (80-99) 05/21/18 04:20 MCH 29.7 pg (27.0-31.0) 05/21/18 04:20 MCHC Differential 32.7 pg (28.0-36.0) 05/21/18 04:20 RDW 13.3 % (11.5-20.0) 05/21/18 04:20 Plt Count 228 Th/cmm (150-400) 05/21/18 04:20 MPV 10.2 fl 05/21/18 04:20 Neutrophils % 61.7 % (40.0-80.0) 05/21/18 04:20 Lymphocytes % 23.3 % (20.0-50.0) 05/21/18 04:20 Monocytes % 8.8 % (2.0-10.0) 05/21/18 04:20 Eosinophils % 5.5 % (0.0-5.0) H 05/21/18 04:20 Basophils % 0.7 % (0.0-2.0) 05/21/18 04:20 Eos Smear Source URINE 05/20/18 15:10 Eos Smear Total Cells NONE SEEN (NONE SEEN) 05/20/18 15:10 PT 10.9 SECONDS (9.5-11.5) 05/17/18 08:30 INR 1.05 (0.5-1.4) 05/17/18 08:30 PTT (Actin FS) 24.7 SECONDS (26.0-38.0) L 05/17/18 08:30 Sodium 136 mEq/L (136-145) 05/21/18 04:20 Potassium 4.4 mEq/L (3.5-5.1) 05/21/18 04:20 Chloride 106 mEq/L (98-107) 05/21/18 04:20 Carbon Dioxide 24.2 mEq/L (21.0-31.0) 05/21/18 04:20 Anion Gap 10.2 (7.0-16.0) 05/21/18 04:20 BUN 31 mg/dL (7-25) H 05/21/18 04:20 Creatinine 1.5 mg/dL (0.7-1.3) H 05/21/18 04:20 Est GFR ( Amer) 59.5 ml/min (>90) 05/21/18 04:20 Est GFR (Non-Af Amer) 49.2 ml/min 05/21/18 04:20 BUN/Creatinine Ratio 20.7 05/21/18 04:20 Glucose 153 mg/dL (70-105) H 05/21/18 04:20 POC Glucose 197 MG/DL (70 - 105) H 05/21/18 11:08 Uric Acid 7.6 mg/dL (4.4-7.6) 05/21/18 04:20 Calcium 8.6 mg/dL (8.6-10.3) 05/21/18 04:20 Phosphorus 3.2 mg/dL (2.5-5.0) 05/21/18 04:20 Magnesium 1.7 mg/dL (1.9-2.7) L 05/21/18 04:20 Total Bilirubin 0.3 mg/dL (0.3-1.0) 05/21/18 04:20 AST 19 U/L (13-39) 05/21/18 04:20 ALT 39 U/L (7-52) 05/21/18 04:20 Alkaline Phosphatase 82 U/L (34-104) 05/21/18 04:20 Total Protein 5.9 gm/dL (6.0-8.3) L 05/21/18 04:20 Albumin 2.7 gm/dL (4.2-5.5) L 05/21/18 04:20 Globulin 3.2 gm/dL 05/21/18 04:20 Albumin/Globulin Ratio 0.8 (1.0-1.8) L 05/21/18 04:20 Urine Source [place] 05/20/18 15:10 Urine Color BROWN 05/20/18 15:10 Urine Clarity HAZY (CLEAR) 05/20/18 15:10 Urine pH 6.0 (4.6 - 8.0) 05/20/18 15:10 Ur Specific [place] 1.015 (1.005-1.030) 05/20/18 15:10 Urine Protein 100 mg/dL (NEGATIVE) H 05/20/18 15:10 Urine Glucose (UA) NEGATIVE mg/dL (NEGATIVE) 05/20/18 15:10 Urine Ketones NEGATIVE mg/dL (NEGATIVE) 05/20/18 15:10 Urine Blood LARGE (NEGATIVE) H 05/20/18 15:10 Urine Nitrate NEGATIVE (NEGATIVE) 05/20/18 15:10 Urine Bilirubin NEGATIVE (NEGATIVE) 05/20/18 15:10 Urine Urobilinogen 0.2 E.U./dL (0.2 - 1.0) 05/20/18 15:10 Ur Leukocyte Esterase MODERATE (NEGATIVE) H 05/20/18 15:10 Urine RBC 25-50 /hpf (0-5) H 05/20/18 15:10 Urine WBC 6-10 /hpf (0-5) 05/20/18 15:10 Ur Epithelial Cells NONE SEEN /lpf (FEW) 05/20/18 15:10 Urine Bacteria NONE SEEN /hpf (NONE SEEN) 05/20/18 15:10 Ur Random Sodium 66 mmol/L 05/20/18 15:10 Urine Creatinine 61.0 mg/dl (39.0-259.0) 05/20/18 15:10 - Physical Exam Vitals and I&O: Vital Signs Temp 96.0 F 05/21/18 12:00 Pulse 64 05/21/18 12:00 Resp 18 05/21/18 12:00 BP 123/60 05/21/18 12:00 Pulse Ox 95 05/21/18 12:00 Intake & Output 05/20/18 05/21/18 05/21/18 18:59 06:59 18:59 Intake Total 500 1999 839.583 Output Total 1200 Balance -700 1999 839.583 Weight (lbs) 99.337 kg Intake: Intake, IV Amount 1999 839.583 Sodium Chloride 0.45% 1999 839.583 000 ml @ 125 mls/hr IV . Q8H [facility] Rx#:[id number] Oral 500 Output: Urine 1200 Other: # Bowel Movements 1 Stool Characteristics Soft Soft Soft Formed Formed Formed Weight Source Bedscale Active Medications: Current Medications Acetaminophen (Tylenol) 650 mg PO Q4HR PRN PRN Reason: Pain or Fever >101 Stop: 07/16/18 07:50 Last Admin: 05/19/18 05:52 Dose: 650 mg Acetaminophen/Codeine Phosphate (Tylenol W/Codeine #3) 1 tab PO Q8H PRN PRN Reason: FOR PAIN IF TYLENOL INEFFECTIV Stop: 07/16/18 07:50 Last Admin: 05/20/18 13:41 Dose: 1 tab Albuterol/Ipratropium (Duoneb Neb) 3 ml HHN Q2H PRN PRN Reason: Wheezing Stop: 07/16/18 12:32 Last Admin: 05/17/18 12:39 Dose: 3 ml Allopurinol (Zyloprim) 100 mg PO DAILY [facility] Stop: 07/16/18 08:59 Last Admin: 05/21/18 08:50 Dose: 100 mg Amlodipine Besylate (Norvasc) 10 mg PO DAILY [facility] Stop: 07/16/18 08:59 Last Admin: 05/21/18 08:53 Dose: 10 mg Atorvastatin Calcium (Lipitor) 40 mg PO HS [facility] Stop: 07/16/18 20:59 Last Admin: 05/20/18 20:53 Dose: 40 mg Bisacodyl (Dulcolax 10 Mg Supp) 10 mg RC DAILY PRN PRN Reason: IF MOM INEFFECTIVE Stop: 07/16/18 07:50 Carvedilol (Coreg) 12.5 mg PO BID [facility] Stop: 07/16/18 08:59 Last Admin: 05/21/18 08:53 Dose: 12.5 mg Diphenhydramine HCl (Benadryl) 25 mg PO Q8HR [facility] Stop: 07/16/18 14:59 Last Admin: 05/21/18 12:20 Dose: Not Given Docusate Sodium (Colace) 100 mg PO BID [facility] Stop: 07/16/18 08:59 Last Admin: 05/21/18 08:50 Dose: Not Given Famotidine (Pepcid) 20 mg PO BID [facility] Stop: 07/16/18 08:59 Last Admin: 05/21/18 08:49 Dose: 20 mg Gabapentin (Neurontin) 300 mg PO DAILY [facility] Stop: 07/16/18 08:59 Last Admin: 05/21/18 08:53 Dose: 300 mg Guaifenesin/Dextromethorphan (Robitussin Dm) 10 ml PO Q6HR PRN PRN Reason: Cough Stop: 07/16/18 07:50 Last Admin: 05/17/18 20:30 Dose: 10 ml Hydromorphone HCl (Dilaudid) 2 mg IVP Q4HR PRN PRN Reason: Pain (Severe) Stop: 07/16/18 14:51 Last Admin: 05/21/18 13:01 Dose: 2 mg Sodium Chloride (Nacl 0.45%) 1,000 mls @ 125 mls/hr IV .Q8H [facility] Stop: 07/19/18 11:29 Last Admin: 05/21/18 12:14 Dose: 125 mls/hr Insulin Aspart (Novolog Insulin Sliding Scale) 0 units SUBQ Q6HR [facility]; Protocol Stop: 07/16/18 11:59 Last Admin: 05/21/18 12:13 Dose: 2 units Lisinopril (Zestril) 5 mg PO DAILY [facility] Stop: 07/16/18 08:59 Last Admin: 05/21/18 08:50 Dose: 5 mg Loperamide HCl (Imodium) 2 mg PO Q6H PRN PRN Reason: Diarrhea Stop: 07/16/18 07:50 Magnesium Hydroxide (Milk Of Magnesia) 30 ml PO HS PRN PRN Reason: Constipation Stop: 07/16/18 07:50 Last Admin: 05/19/18 09:13 Dose: 30 ml Multivitamins/Vitamin C (Theragran) 1 tab PO DAILY [facility] Stop: 07/16/18 08:59 Last Admin: 05/21/18 08:53 Dose: 1 tab Ondansetron HCl (Zofran) 4 mg IV Q6H PRN PRN Reason: Nausea / Vomiting Stop: 07/16/18 08:06 Oxybutynin Chloride (Ditropan) 5 mg PO BID [facility] Stop: 07/16/18 08:59 Last Admin: 05/21/18 08:53 Dose: 5 mg Psyllium Hydrophilic Mucilloid (Metamucil) 1 pkt PO DAILY PRN PRN Reason: BOWEL MANAGEMENT Stop: 07/16/18 07:50 Sodium Phosphate (Fleet Enema) 135 ml RC Q48H PRN PRN Reason: IF DULCOLAX INEFFECTIVE Stop: 07/16/18 07:50 Zolpidem Tartrate (Ambien) 5 mg PO HS PRN PRN Reason: Insomnia Stop: 07/16/18 07:50 Last Admin: 05/19/18 20:43 Dose: 5 mg General: Alert, No acute distress HEENT: Atraumatic Neck: Supple, +2 carotid pulse wo bruit Cardiovascular: Regular rate, Normal S1, Normal S2 Lungs: Clear to auscultation Abdomen: Bowel sounds, Soft Extremities: no Edema Neurological: Normal tone, Sensation intact Skin: no Rash Psych/Mental Status: Mood NL - Procedures Procedures: Procedures Procedure Code Date EXCISION OF CECUM, ENDO [id number] 05/03/18 EXCISION OF ESOPHAGUS, ENDO, DIAGN [id number] 05/03/18 EXCISION OF RECTUM, ENDO [id number] 05/03/18 EXCISION OF STOMACH, ENDO, DIAGN [id number] 05/03/18 EXTIRPATION OF MATTER FROM BLADDER, ENDO [id number] 05/03/18 RESECTION OF PROSTATE, ENDO [id number] 05/17/18 Assessment/Plan - Assessment Assessment: ZAIRE on CKD Gross Hematuria 2/2 TURP BPH w/ Obst Uropathy S/P TURP B/L Calculi DJD T2DM w/ CKD Ess Htn w/ CKD Dyslipidemia - Plan Plan: Lab - Result Diagrams 05/21/18 04:20 05/21/18 04:20 Current Medications Acetaminophen (Tylenol) 650 mg PO Q4HR PRN PRN Reason: Pain or Fever >101 Stop: 07/16/18 07:50 Last Admin: 05/19/18 05:52 Dose: 650 mg Acetaminophen/Codeine Phosphate (Tylenol W/Codeine #3) 1 tab PO Q8H PRN PRN Reason: FOR PAIN IF TYLENOL INEFFECTIV Stop: 07/16/18 07:50 Last Admin: 05/20/18 13:41 Dose: 1 tab Albuterol/Ipratropium (Duoneb Neb) 3 ml HHN Q2H PRN PRN Reason: Wheezing Stop: 07/16/18 12:32 Last Admin: 05/17/18 12:39 Dose: 3 ml Allopurinol (Zyloprim) 100 mg PO DAILY [facility] Stop: 07/16/18 08:59 Last Admin: 05/21/18 08:50 Dose: 100 mg Amlodipine Besylate (Norvasc) 10 mg PO DAILY [facility] Stop: 07/16/18 08:59 Last Admin: 05/21/18 08:53 Dose: 10 mg Atorvastatin Calcium (Lipitor) 40 mg PO HS [facility] Stop: 07/16/18 20:59 Last Admin: 05/20/18 20:53 Dose: 40 mg Bisacodyl (Dulcolax 10 Mg Supp) 10 mg RC DAILY PRN PRN Reason: IF MOM INEFFECTIVE Stop: 07/16/18 07:50 Carvedilol (Coreg) 12.5 mg PO BID [facility] Stop: 07/16/18 08:59 Last Admin: 05/21/18 08:53 Dose: 12.5 mg Diphenhydramine HCl (Benadryl) 25 mg PO Q8HR [facility] Stop: 07/16/18 14:59 Last Admin: 05/21/18 12:20 Dose: Not Given Docusate Sodium (Colace) 100 mg PO BID [facility] Stop: 07/16/18 08:59 Last Admin: 05/21/18 08:50 Dose: Not Given Famotidine (Pepcid) 20 mg PO BID [facility] Stop: 07/16/18 08:59 Last Admin: 05/21/18 08:49 Dose: 20 mg Gabapentin (Neurontin) 300 mg PO DAILY [facility] Stop: 07/16/18 08:59 Last Admin: 05/21/18 08:53 Dose: 300 mg Guaifenesin/Dextromethorphan (Robitussin Dm) 10 ml PO Q6HR PRN PRN Reason: Cough Stop: 07/16/18 07:50 Last Admin: 05/17/18 20:30 Dose: 10 ml Hydromorphone HCl (Dilaudid) 2 mg IVP Q4HR PRN PRN Reason: Pain (Severe) Stop: 07/16/18 14:51 Last Admin: 05/21/18 13:01 Dose: 2 mg Sodium Chloride (Nacl 0.45%) 1,000 mls @ 125 mls/hr IV .Q8H [facility] Stop: 07/19/18 11:29 Last Admin: 05/21/18 12:14 Dose: 125 mls/hr Insulin Aspart (Novolog Insulin Sliding Scale) 0 units SUBQ Q6HR [facility]; Protocol Stop: 07/16/18 11:59 Last Admin: 05/21/18 12:13 Dose: 2 units Lisinopril (Zestril) 5 mg PO DAILY [facility] Stop: 07/16/18 08:59 Last Admin: 05/21/18 08:50 Dose: 5 mg Loperamide HCl (Imodium) 2 mg PO Q6H PRN PRN Reason: Diarrhea Stop: 07/16/18 07:50 Magnesium Hydroxide (Milk Of Magnesia) 30 ml PO HS PRN PRN Reason: Constipation Stop: 07/16/18 07:50 Last Admin: 05/19/18 09:13 Dose: 30 ml Multivitamins/Vitamin C (Theragran) 1 tab PO DAILY [facility] Stop: 07/16/18 08:59 Last Admin: 05/21/18 08:53 Dose: 1 tab Ondansetron HCl (Zofran) 4 mg IV Q6H PRN PRN Reason: Nausea / Vomiting Stop: 07/16/18 08:06 Oxybutynin Chloride (Ditropan) 5 mg PO BID [facility] Stop: 07/16/18 08:59 Last Admin: 05/21/18 08:53 Dose: 5 mg Psyllium Hydrophilic Mucilloid (Metamucil) 1 pkt PO DAILY PRN PRN Reason: BOWEL MANAGEMENT Stop: 07/16/18 07:50 Sodium Phosphate (Fleet Enema) 135 ml RC Q48H PRN PRN Reason: IF DULCOLAX INEFFECTIVE Stop: 07/16/18 07:50 Zolpidem Tartrate (Ambien) 5 mg PO HS PRN PRN Reason: Insomnia Stop: 07/16/18 07:50 Last Admin: 05/19/18 20:43 Dose: 5 mg Lab - Result Diagrams 05/21/18 04:20 05/21/18 04:20 Kidney fnc improved w/ BUN/CR of 31/1.5 Hgb/Hct dipped a bit @ 8.8/27 f/u electrolytes & CBC continue IVF
--- NOTE | 2018-05-21 14:45 | Pathology Report ---
[id number] Collection Date: 05/17/2018 Surgeon: Dr. Malena Armendariz Specimen Description: Prostate TUR. Gross Description: Received in formalin are multiple irregular, rubbery, damon-marrero soft tissue fragments, ranging from 0.5 to 1.6 cm in greatest dimension and aggregating to an area 2.8 x 1.8 x 0.3 cm. The specimen is totally submitted in three cassettes labeled A1 to A3. Microscopic Description: The histologic sections show benign prostate tissue with a small amount of urethra also identified. There is chronic inflammation present consisting of increased numbers of lymphocytes and plasma cells. Benign hyperplastic glandular changes are appreciated. There is no evidence for atypia. Diagnosis: Benign prostate tissue showing chronic inflammation consistent with chronic prostatitis (prostate TUR). [facility]# [id number] MTDD
--- NOTE | 2018-05-21 22:22 | Infectious Disease Prog Note ---
Infectious Disease Subjective - Review of Systems Service Date: 05/21/18 Subjective: no new change, no fever, Infectious Disease Objective - Results Result Diagrams: 05/21/18 04:20 05/21/18 04:20 Recent Labs: Laboratory Last Values WBC 7.4 Th/cmm (4.8-10.8) 05/21/18 04:20 RBC 2.97 Mil/cmm (3.80-5.80) L 05/21/18 04:20 Hgb 8.8 gm/dL (12-16) L 05/21/18 04:20 Hct 27.0 % (41.0-60) L 05/21/18 04:20 MCV 90.9 fl (80-99) 05/21/18 04:20 MCH 29.7 pg (27.0-31.0) 05/21/18 04:20 MCHC Differential 32.7 pg (28.0-36.0) 05/21/18 04:20 RDW 13.3 % (11.5-20.0) 05/21/18 04:20 Plt Count 228 Th/cmm (150-400) 05/21/18 04:20 MPV 10.2 fl 05/21/18 04:20 Neutrophils % 61.7 % (40.0-80.0) 05/21/18 04:20 Lymphocytes % 23.3 % (20.0-50.0) 05/21/18 04:20 Monocytes % 8.8 % (2.0-10.0) 05/21/18 04:20 Eosinophils % 5.5 % (0.0-5.0) H 05/21/18 04:20 Basophils % 0.7 % (0.0-2.0) 05/21/18 04:20 Eos Smear Source URINE 05/20/18 15:10 Eos Smear Total Cells NONE SEEN (NONE SEEN) 05/20/18 15:10 PT 10.9 SECONDS (9.5-11.5) 05/17/18 08:30 INR 1.05 (0.5-1.4) 05/17/18 08:30 PTT (Actin FS) 24.7 SECONDS (26.0-38.0) L 05/17/18 08:30 Sodium 136 mEq/L (136-145) 05/21/18 04:20 Potassium 4.4 mEq/L (3.5-5.1) 05/21/18 04:20 Chloride 106 mEq/L (98-107) 05/21/18 04:20 Carbon Dioxide 24.2 mEq/L (21.0-31.0) 05/21/18 04:20 Anion Gap 10.2 (7.0-16.0) 05/21/18 04:20 BUN 31 mg/dL (7-25) H 05/21/18 04:20 Creatinine 1.5 mg/dL (0.7-1.3) H 05/21/18 04:20 Est GFR ( Amer) 59.5 ml/min (>90) 05/21/18 04:20 Est GFR (Non-Af Amer) 49.2 ml/min 05/21/18 04:20 BUN/Creatinine Ratio 20.7 05/21/18 04:20 Glucose 153 mg/dL (70-105) H 05/21/18 04:20 POC Glucose 188 MG/DL (70 - 105) H 05/21/18 16:48 Uric Acid 7.6 mg/dL (4.4-7.6) 05/21/18 04:20 Calcium 8.6 mg/dL (8.6-10.3) 05/21/18 04:20 Phosphorus 3.2 mg/dL (2.5-5.0) 05/21/18 04:20 Magnesium 1.7 mg/dL (1.9-2.7) L 05/21/18 04:20 Total Bilirubin 0.3 mg/dL (0.3-1.0) 05/21/18 04:20 AST 19 U/L (13-39) 05/21/18 04:20 ALT 39 U/L (7-52) 05/21/18 04:20 Alkaline Phosphatase 82 U/L (34-104) 05/21/18 04:20 Total Protein 5.9 gm/dL (6.0-8.3) L 05/21/18 04:20 Albumin 2.7 gm/dL (4.2-5.5) L 05/21/18 04:20 Globulin 3.2 gm/dL 05/21/18 04:20 Albumin/Globulin Ratio 0.8 (1.0-1.8) L 05/21/18 04:20 Urine Source [place] 05/20/18 15:10 Urine Color BROWN 05/20/18 15:10 Urine Clarity HAZY (CLEAR) 05/20/18 15:10 Urine pH 6.0 (4.6 - 8.0) 05/20/18 15:10 Ur Specific [place] 1.015 (1.005-1.030) 05/20/18 15:10 Urine Protein 100 mg/dL (NEGATIVE) H 05/20/18 15:10 Urine Glucose (UA) NEGATIVE mg/dL (NEGATIVE) 05/20/18 15:10 Urine Ketones NEGATIVE mg/dL (NEGATIVE) 05/20/18 15:10 Urine Blood LARGE (NEGATIVE) H 05/20/18 15:10 Urine Nitrate NEGATIVE (NEGATIVE) 05/20/18 15:10 Urine Bilirubin NEGATIVE (NEGATIVE) 05/20/18 15:10 Urine Urobilinogen 0.2 E.U./dL (0.2 - 1.0) 05/20/18 15:10 Ur Leukocyte Esterase MODERATE (NEGATIVE) H 05/20/18 15:10 Urine RBC 25-50 /hpf (0-5) H 05/20/18 15:10 Urine WBC 6-10 /hpf (0-5) 05/20/18 15:10 Ur Epithelial Cells NONE SEEN /lpf (FEW) 05/20/18 15:10 Urine Bacteria NONE SEEN /hpf (NONE SEEN) 05/20/18 15:10 Ur Random Sodium 66 mmol/L 05/20/18 15:10 Urine Creatinine 61.0 mg/dl (39.0-259.0) 05/20/18 15:10 - Physical Exam Vitals and I&O: Vital Signs Temp 98.3 F 05/21/18 15:30 Pulse 60 05/21/18 16:16 Resp 18 05/21/18 15:30 BP 99/54 05/21/18 16:16 Pulse Ox 95 05/21/18 15:30 Intake & Output 05/21/18 05/21/18 05/22/18 06:59 18:59 06:59 Intake Total 1999 1389.583 300 Output Total 1700 800 Balance 1999 -310.417 -500 Weight (lbs) 99.337 kg 99.337 kg Intake: Intake, IV Amount 1999 839.583 Sodium Chloride 0.45% 1999 839.583 000 ml @ 125 mls/hr IV . Q8H [facility] Rx#:[id number] Oral 550 300 Output: Urine 1700 800 Other: # Bowel Movements 0 Stool Characteristics Soft Soft Soft Formed Formed Formed Weight Source Bedscale Bedscale Active Medications: Current Medications Acetaminophen (Tylenol) 650 mg PO Q4HR PRN PRN Reason: Pain or Fever >101 Stop: 07/16/18 07:50 Last Admin: 05/19/18 05:52 Dose: 650 mg Acetaminophen/Codeine Phosphate (Tylenol W/Codeine #3) 1 tab PO Q8H PRN PRN Reason: FOR PAIN IF TYLENOL INEFFECTIV Stop: 07/16/18 07:50 Last Admin: 05/20/18 13:41 Dose: 1 tab Albuterol/Ipratropium (Duoneb Neb) 3 ml HHN Q2H PRN PRN Reason: Wheezing Stop: 07/16/18 12:32 Last Admin: 05/17/18 12:39 Dose: 3 ml Allopurinol (Zyloprim) 100 mg PO DAILY [facility] Stop: 07/16/18 08:59 Last Admin: 05/21/18 08:50 Dose: 100 mg Amlodipine Besylate (Norvasc) 10 mg PO DAILY [facility] Stop: 07/16/18 08:59 Last Admin: 05/21/18 08:53 Dose: 10 mg Atorvastatin Calcium (Lipitor) 40 mg PO HS [facility] Stop: 07/16/18 20:59 Last Admin: 05/21/18 20:20 Dose: 40 mg Bisacodyl (Dulcolax 10 Mg Supp) 10 mg RC DAILY PRN PRN Reason: IF MOM INEFFECTIVE Stop: 07/16/18 07:50 Carvedilol (Coreg) 12.5 mg PO BID [facility] Stop: 07/16/18 08:59 Last Admin: 05/21/18 16:16 Dose: Not Given Diphenhydramine HCl (Benadryl) 25 mg PO Q8HR [facility] Stop: 07/16/18 14:59 Last Admin: 05/21/18 20:20 Dose: 25 mg Docusate Sodium (Colace) 100 mg PO BID [facility] Stop: 07/16/18 08:59 Last Admin: 05/21/18 16:10 Dose: 100 mg Famotidine (Pepcid) 20 mg PO BID [facility] Stop: 07/16/18 08:59 Last Admin: 05/21/18 16:10 Dose: 20 mg Gabapentin (Neurontin) 300 mg PO DAILY [facility] Stop: 07/16/18 08:59 Last Admin: 05/21/18 08:53 Dose: 300 mg Guaifenesin/Dextromethorphan (Robitussin Dm) 10 ml PO Q6HR PRN PRN Reason: Cough Stop: 07/16/18 07:50 Last Admin: 05/17/18 20:30 Dose: 10 ml Hydromorphone HCl (Dilaudid) 2 mg IVP Q4HR PRN PRN Reason: Pain (Severe) Stop: 07/16/18 14:51 Last Admin: 05/21/18 20:32 Dose: 2 mg Sodium Chloride (Nacl 0.45%) 1,000 mls @ 125 mls/hr IV .Q8H [facility] Stop: 07/19/18 11:29 Last Admin: 05/21/18 12:14 Dose: 125 mls/hr Insulin Aspart (Novolog Insulin Sliding Scale) 0 units SUBQ Q6HR [facility]; Protocol Stop: 07/16/18 11:59 Last Admin: 05/21/18 17:34 Dose: 2 units Lisinopril (Zestril) 5 mg PO DAILY [facility] Stop: 07/16/18 08:59 Last Admin: 05/21/18 08:50 Dose: 5 mg Loperamide HCl (Imodium) 2 mg PO Q6H PRN PRN Reason: Diarrhea Stop: 07/16/18 07:50 Magnesium Hydroxide (Milk Of Magnesia) 30 ml PO HS PRN PRN Reason: Constipation Stop: 07/16/18 07:50 Last Admin: 05/19/18 09:13 Dose: 30 ml Multivitamins/Vitamin C (Theragran) 1 tab PO DAILY [facility] Stop: 07/16/18 08:59 Last Admin: 05/21/18 08:53 Dose: 1 tab Ondansetron HCl (Zofran) 4 mg IV Q6H PRN PRN Reason: Nausea / Vomiting Stop: 07/16/18 08:06 Oxybutynin Chloride (Ditropan) 5 mg PO BID [facility] Stop: 07/16/18 08:59 Last Admin: 05/21/18 16:11 Dose: 5 mg Psyllium Hydrophilic Mucilloid (Metamucil) 1 pkt PO DAILY PRN PRN Reason: BOWEL MANAGEMENT Stop: 07/16/18 07:50 Sodium Phosphate (Fleet Enema) 135 ml RC Q48H PRN PRN Reason: IF DULCOLAX INEFFECTIVE Stop: 07/16/18 07:50 Zolpidem Tartrate (Ambien) 5 mg PO HS PRN PRN Reason: Insomnia Stop: 07/16/18 07:50 Last Admin: 05/19/18 20:43 Dose: 5 mg General: no acute distress, well developed, well nourished HEENT: atraumatic, normocephalic, PERRLA, EOMI, moist mucous membrane Neck: supple, no thyromegaly, no lymphadenopathy, no rigid Cardiovascular: S1S2, regular Lungs: clear to auscultation bilaterally, clear to percussion Abdomen: soft, no tender, no distended, no hepatomegaly Extremities: no cyanosis, no clubbing, no edema Neurological: awake, alert, oriented, CN 2-12 intact Skin: intact - Procedures Procedures: Procedures Procedure Code Date EXCISION OF CECUM, ENDO [id number] 05/03/18 EXCISION OF ESOPHAGUS, ENDO, DIAGN [id number] 05/03/18 EXCISION OF RECTUM, ENDO [id number] 05/03/18 EXCISION OF STOMACH, ENDO, DIAGN [id number] 05/03/18 EXTIRPATION OF MATTER FROM BLADDER, ENDO [id number] 05/03/18 RESECTION OF PROSTATE, ENDO [id number] 05/17/18 Infectious Disease Assmt/Plan - Assessment Assessment: BPH. Hematuria 2/2 surgery - Plan Plan: No need of antibiotics. Nutritional Asmnt/Malnutr-PDOC - Dietary Evaluation Malnutrition Findings (Please click <Entered> for more info): Nutritional Asmnt/Malnutrition Start: 05/21/18 16: 48 Text: Status: Complete Freq: Protocol: Document 05/21/18 16:48 DANNIE (Rec: 05/21/18 17:02 DANNIE [email or web address]) Nutritional Asmnt/Malnutrition Patient General Information Nutritional Screening Moderate Risk Diagnosis GERD Pertinent Medical Hx/Surgical Hx BPH, DM, gout, hyperlipidemia, HTn, CAD, OA Subjective Information Pt seen lying in bed at time of visit, awake and alert. Pt stated appetite not as good as usual. Per EMR, PO itnake 75- 100%. Current Diet Order/ Nutrition Support 1800 ADA Pertinent Medications colace, novolog, theragran, nacl 0.45% Pertinent Labs 05/21 BUN 31, Cr 1.5, glucose 153, POC 121-197 Nutritional Hx/Data Height 1.65 m Height (Calculated Centimeters) 165.1 Current Weight (lbs) 99.337 kg Weight (Calculated Kilograms) 99.3 Weight (Calculated Grams) 57725.7 [place] Body Weight 136 Body Mass Index (BMI) 36.4 Weight Status Approriate GI Symptoms GI Symptoms None Last BM 05/20 Difficult in: None Skin Integrity/Comment: reddened to perinal Current %PO Good (75-100%) Estimated Nutritional Goals BEE in Kcals: Adj wt of IBW Calories/Kcals/Kg 25-30 Kcals Calculated 8200-9367 Protein: Adj wt of IBW Protein g/k Protein Calculated 71 Fluid: ml 1775-2130ml (1ml/kcal) Nutritional Problem 1. Problem Problem altered nutrition related lab Etiology renal dysfunction, hx of DM Signs/Symptoms: BUN 31, Cr 1.5, glucose 153, POC 121-197 Malnutrition Alert Is there a minimum of two criteria No selected? Query Text:Check all the applicable criteria. A minimum of two criteria are recommended for diagnosis of either severe or non-severe malnutrition. Malnutrition Related to Morbid Obesity Malnutrition related to morbid obesity No Intervention/Recommendation Comments 1. Continue with current diet as ordered. If BUN/Crea continue high, will consider adding low protein diet. 2. Monitor PO intake, wt, labs and skin integrity 3. F/U as moderate risk in 3-5 days, 05/24-05/26 Expected Outcomes/Goals Expected Outcomes/Goals 1. PO intake to meet at least 75% of nutritional needs. 2. Wt stability, skin to remain intact, labs to approach WNL.
--- NOTE | 2018-05-21 23:55 | Progress Notes ---
DATE: UROLOGY PROGRESS NOTE SUBJECTIVE: The patient did dwell after the TURP with resolution of the hematuria and good drainage from the Javier catheter. However, he was noted to have mildly rising creatinine 2 days ago, which initiated a Nephrology workup and the creatinine reached a peak of 1.9 at which point, ultrasound was ordered and showed severe bilateral hydronephrosis. Meanwhile, his urine output recorded in the last few days was 1200, 1875, and 2800. On exam, he is awake, alert, oriented. Has no pain except in the perianal area from an unrelated problem. Temperature 98.3. He has remained afebrile postoperatively. Heart rate 60 and blood pressure 99/54, somewhat lower than his baseline. Abdomen is massively obese, but soft. Javier catheter is draining concentrated urine and there is no pedal edema. LABORATORY DATA: Postoperatively white count has remained stable, currently 7.4 and hemoglobin 8.8, small drift downward after the procedure. Creatinine started at 1.2, went up to 1.4 and again 1.3 and then jumped to 1.9, but fortunately has come back down to 1.5 today. Glucoses have been fairly well controlled. Reviewing his past CT scan from last month, this also showed bilateral hydronephrosis, which I thought could resolve after the Javier was placed and similarly after the TURP. It is unclear why this has not improved and is somewhat worrisome for either injury or compromise of the ureteral orifices or from hyperreflexic neurogenic noncompliant bladder causing constant reflux into the upper tracts. Recommend check creatinine tomorrow, if not improved, then consider a nephrostomy on the right side first and then on the left side with antegrade pyelograms to rule out obstruction in the ureters. There was mention of a 2 mm possible stone in the right lower ureter in April, therefore, we will start with the right side first if nephrostomy has to be placed. I explained this to the patient, who understands and agrees with the plan. JOB# [id number]
[2018-05-22] MEDS: Sodium Chloride 0.45% 1,000 ML IV SCH ×2 (04:01→12:25)
[2018-05-22] MEDS: HYDROmorphone 2 mg/mL 1mL Vial IVP PRN ×2 (04:04→20:36)
[2018-05-22] MEDS: INSULIN ASPART SLIDING SCALE 100 UNITS/ML UNIT SUBQ SCH ×3 (06:05→18:02)
[2018-05-22] MEDS: Multivitamin Tab PO SCH (08:51)
[2018-05-22 11:46] LABS: ANION GAP 10.4 (7.0-16.0); BUN - UREA NITROGEN 27 mg/dL (7-25); CARBON DIOXIDE 24.3 mEq/L (21.0-31.0); CHLORIDE 105 mEq/L (98-107); CREATININE - SERUM 1.3 mg/dL (0.7-1.3); GFR AFRICAN-AMERICAN > 60.0 ml/min (>90); GLUCOSE 160 mg/dL (70-105); POTASSIUM SERUM 4.7 mEq/L (3.5-5.1); SODIUM SERUM 135 mEq/L (136-145)
--- NOTE | 2018-05-22 13:49 | General Progress Note ---
Subjective - Review of Systems Service Date: 05/22/18 Subjective: alert, better spirits today Objective - Results Result Diagrams: 05/21/18 04:20 05/22/18 11:20 Recent Labs: Laboratory Last Values WBC 7.4 Th/cmm (4.8-10.8) 05/21/18 04:20 RBC 2.97 Mil/cmm (3.80-5.80) L 05/21/18 04:20 Hgb 8.8 gm/dL (12-16) L 05/21/18 04:20 Hct 27.0 % (41.0-60) L 05/21/18 04:20 MCV 90.9 fl (80-99) 05/21/18 04:20 MCH 29.7 pg (27.0-31.0) 05/21/18 04:20 MCHC Differential 32.7 pg (28.0-36.0) 05/21/18 04:20 RDW 13.3 % (11.5-20.0) 05/21/18 04:20 Plt Count 228 Th/cmm (150-400) 05/21/18 04:20 MPV 10.2 fl 05/21/18 04:20 Neutrophils % 61.7 % (40.0-80.0) 05/21/18 04:20 Lymphocytes % 23.3 % (20.0-50.0) 05/21/18 04:20 Monocytes % 8.8 % (2.0-10.0) 05/21/18 04:20 Eosinophils % 5.5 % (0.0-5.0) H 05/21/18 04:20 Basophils % 0.7 % (0.0-2.0) 05/21/18 04:20 Eos Smear Source URINE 05/20/18 15:10 Eos Smear Total Cells NONE SEEN (NONE SEEN) 05/20/18 15:10 PT 10.9 SECONDS (9.5-11.5) 05/17/18 08:30 INR 1.05 (0.5-1.4) 05/17/18 08:30 PTT (Actin FS) 24.7 SECONDS (26.0-38.0) L 05/17/18 08:30 Sodium 135 mEq/L (136-145) L 05/22/18 11:20 Potassium 4.7 mEq/L (3.5-5.1) 05/22/18 11:20 Chloride 105 mEq/L (98-107) 05/22/18 11:20 Carbon Dioxide 24.3 mEq/L (21.0-31.0) 05/22/18 11:20 Anion Gap 10.4 (7.0-16.0) 05/22/18 11:20 BUN 27 mg/dL (7-25) H 05/22/18 11:20 Creatinine 1.3 mg/dL (0.7-1.3) 05/22/18 11:20 Est GFR ( Amer) > 60.0 ml/min (>90) 05/22/18 11:20 Est GFR (Non-Af Amer) 58.0 ml/min 05/22/18 11:20 BUN/Creatinine Ratio 20.8 05/22/18 11:20 Glucose 160 mg/dL (70-105) H 05/22/18 11:20 POC Glucose 166 MG/DL (70 - 105) H 05/22/18 11:30 Uric Acid 7.6 mg/dL (4.4-7.6) 05/21/18 04:20 Calcium 9.0 mg/dL (8.6-10.3) 05/22/18 11:20 Phosphorus 3.2 mg/dL (2.5-5.0) 05/21/18 04:20 Magnesium 1.7 mg/dL (1.9-2.7) L 05/21/18 04:20 Total Bilirubin 0.3 mg/dL (0.3-1.0) 05/21/18 04:20 AST 19 U/L (13-39) 05/21/18 04:20 ALT 39 U/L (7-52) 05/21/18 04:20 Alkaline Phosphatase 82 U/L (34-104) 05/21/18 04:20 Total Protein 5.9 gm/dL (6.0-8.3) L 05/21/18 04:20 Albumin 2.7 gm/dL (4.2-5.5) L 05/21/18 04:20 Globulin 3.2 gm/dL 05/21/18 04:20 Albumin/Globulin Ratio 0.8 (1.0-1.8) L 05/21/18 04:20 Urine Source [place] 05/20/18 15:10 Urine Color BROWN 05/20/18 15:10 Urine Clarity HAZY (CLEAR) 05/20/18 15:10 Urine pH 6.0 (4.6 - 8.0) 05/20/18 15:10 Ur Specific [place] 1.015 (1.005-1.030) 05/20/18 15:10 Urine Protein 100 mg/dL (NEGATIVE) H 05/20/18 15:10 Urine Glucose (UA) NEGATIVE mg/dL (NEGATIVE) 05/20/18 15:10 Urine Ketones NEGATIVE mg/dL (NEGATIVE) 05/20/18 15:10 Urine Blood LARGE (NEGATIVE) H 05/20/18 15:10 Urine Nitrate NEGATIVE (NEGATIVE) 05/20/18 15:10 Urine Bilirubin NEGATIVE (NEGATIVE) 05/20/18 15:10 Urine Urobilinogen 0.2 E.U./dL (0.2 - 1.0) 05/20/18 15:10 Ur Leukocyte Esterase MODERATE (NEGATIVE) H 05/20/18 15:10 Urine RBC 25-50 /hpf (0-5) H 05/20/18 15:10 Urine WBC 6-10 /hpf (0-5) 05/20/18 15:10 Ur Epithelial Cells NONE SEEN /lpf (FEW) 05/20/18 15:10 Urine Bacteria NONE SEEN /hpf (NONE SEEN) 05/20/18 15:10 Ur Random Sodium 66 mmol/L 05/20/18 15:10 Urine Creatinine 61.0 mg/dl (39.0-259.0) 05/20/18 15:10 - Physical Exam Vitals and I&O: Vital Signs Temp 96.9 F 05/22/18 11:42 Pulse 90 05/22/18 11:42 Resp 18 05/22/18 11:42 BP 130/69 05/22/18 11:42 Pulse Ox 98 05/22/18 11:42 Intake & Output 05/21/18 05/22/18 05/22/18 18:59 06:59 18:59 Intake Total 8262.054 5298.917 1000 Output Total 1700 2600 Balance -310.417 482.705 8913 Weight (lbs) 99.337 kg 99.337 kg Intake: Intake, IV Amount 666.692 7008.917 1000 Sodium Chloride 0.45% 1, 868.209 6336.917 1000 000 ml @ 125 mls/hr IV . Q8H [facility] Rx#:[id number] Oral 550 800 Output: Urine 1700 2600 Other: # Bowel Movements 0 Stool Characteristics Soft Soft Formed Formed Weight Source Bedscale Bedscale Active Medications: Current Medications Acetaminophen (Tylenol) 650 mg PO Q4HR PRN PRN Reason: Pain or Fever >101 Stop: 07/16/18 07:50 Last Admin: 05/19/18 05:52 Dose: 650 mg Acetaminophen/Codeine Phosphate (Tylenol W/Codeine #3) 1 tab PO Q8H PRN PRN Reason: FOR PAIN IF TYLENOL INEFFECTIV Stop: 07/16/18 07:50 Last Admin: 05/20/18 13:41 Dose: 1 tab Albuterol/Ipratropium (Duoneb Neb) 3 ml HHN Q2H PRN PRN Reason: Wheezing Stop: 07/16/18 12:32 Last Admin: 05/17/18 12:39 Dose: 3 ml Allopurinol (Zyloprim) 100 mg PO DAILY [facility] Stop: 07/16/18 08:59 Last Admin: 05/22/18 08:52 Dose: 100 mg Amlodipine Besylate (Norvasc) 10 mg PO DAILY [facility] Stop: 07/16/18 08:59 Last Admin: 05/22/18 08:52 Dose: 10 mg Atorvastatin Calcium (Lipitor) 40 mg PO HS [facility] Stop: 07/16/18 20:59 Last Admin: 05/21/18 20:20 Dose: 40 mg Bisacodyl (Dulcolax 10 Mg Supp) 10 mg RC DAILY PRN PRN Reason: IF MOM INEFFECTIVE Stop: 07/16/18 07:50 Carvedilol (Coreg) 12.5 mg PO BID [facility] Stop: 07/16/18 08:59 Last Admin: 05/22/18 08:56 Dose: Not Given Diphenhydramine HCl (Benadryl) 25 mg PO Q8HR [facility] Stop: 07/16/18 14:59 Last Admin: 05/22/18 12:26 Dose: 25 mg Docusate Sodium (Colace) 100 mg PO BID [facility] Stop: 07/16/18 08:59 Last Admin: 05/22/18 08:52 Dose: 100 mg Famotidine (Pepcid) 20 mg PO BID [facility] Stop: 07/16/18 08:59 Last Admin: 05/22/18 08:52 Dose: 20 mg Gabapentin (Neurontin) 300 mg PO DAILY [facility] Stop: 07/16/18 08:59 Last Admin: 05/22/18 08:51 Dose: 300 mg Guaifenesin/Dextromethorphan (Robitussin Dm) 10 ml PO Q6HR PRN PRN Reason: Cough Stop: 07/16/18 07:50 Last Admin: 05/17/18 20:30 Dose: 10 ml Hydromorphone HCl (Dilaudid) 2 mg IVP Q4HR PRN PRN Reason: Pain (Severe) Stop: 07/16/18 14:51 Last Admin: 05/22/18 04:04 Dose: 2 mg Sodium Chloride (Nacl 0.45%) 1,000 mls @ 125 mls/hr IV .Q8H [facility] Stop: 07/19/18 11:29 Last Admin: 05/22/18 12:25 Dose: 125 mls/hr Insulin Aspart (Novolog Insulin Sliding Scale) 0 units SUBQ Q6HR [facility]; Protocol Stop: 07/16/18 11:59 Last Admin: 05/22/18 12:26 Dose: 2 units Lisinopril (Zestril) 5 mg PO DAILY [facility] Stop: 07/16/18 08:59 Last Admin: 05/22/18 08:52 Dose: 5 mg Loperamide HCl (Imodium) 2 mg PO Q6H PRN PRN Reason: Diarrhea Stop: 07/16/18 07:50 Magnesium Hydroxide (Milk Of Magnesia) 30 ml PO HS PRN PRN Reason: Constipation Stop: 07/16/18 07:50 Last Admin: 05/19/18 09:13 Dose: 30 ml Multivitamins/Vitamin C (Theragran) 1 tab PO DAILY [facility] Stop: 07/16/18 08:59 Last Admin: 05/22/18 08:51 Dose: 1 tab Ondansetron HCl (Zofran) 4 mg IV Q6H PRN PRN Reason: Nausea / Vomiting Stop: 07/16/18 08:06 Oxybutynin Chloride (Ditropan) 5 mg PO BID [facility] Stop: 07/16/18 08:59 Last Admin: 05/22/18 08:52 Dose: 5 mg Psyllium Hydrophilic Mucilloid (Metamucil) 1 pkt PO DAILY PRN PRN Reason: BOWEL MANAGEMENT Stop: 07/16/18 07:50 Sodium Phosphate (Fleet Enema) 135 ml RC Q48H PRN PRN Reason: IF DULCOLAX INEFFECTIVE Stop: 07/16/18 07:50 Zolpidem Tartrate (Ambien) 5 mg PO HS PRN PRN Reason: Insomnia Stop: 07/16/18 07:50 Last Admin: 05/19/18 20:43 Dose: 5 mg General: Alert, No acute distress HEENT: Atraumatic Neck: Supple, +2 carotid pulse wo bruit Cardiovascular: Regular rate, Normal S1, Normal S2 Lungs: Clear to auscultation Abdomen: Bowel sounds, Soft Extremities: no Edema Neurological: Normal tone, Sensation intact Skin: no Rash Psych/Mental Status: Mood NL - Procedures Procedures: Procedures Procedure Code Date EXCISION OF CECUM, ENDO [id number] 05/03/18 EXCISION OF ESOPHAGUS, ENDO, DIAGN [id number] 05/03/18 EXCISION OF RECTUM, ENDO [id number] 05/03/18 EXCISION OF STOMACH, ENDO, DIAGN [id number] 05/03/18 EXTIRPATION OF MATTER FROM BLADDER, ENDO [id number] 05/03/18 RESECTION OF PROSTATE, ENDO [id number] 05/17/18 Assessment/Plan - Assessment Assessment: ZAIRE on CKD Gross Hematuria 2/2 TURP BPH w/ Obst Uropathy S/P TURP B/L Calculi w/ Hydronephrosis DJD T2DM w/ CKD Ess Htn w/ CKD Dyslipidemia - Plan Plan: Lab - Result Diagrams 05/21/18 04:20 05/21/18 04:20 Current Medications Acetaminophen (Tylenol) 650 mg PO Q4HR PRN PRN Reason: Pain or Fever >101 Stop: 07/16/18 07:50 Last Admin: 05/19/18 05:52 Dose: 650 mg Acetaminophen/Codeine Phosphate (Tylenol W/Codeine #3) 1 tab PO Q8H PRN PRN Reason: FOR PAIN IF TYLENOL INEFFECTIV Stop: 07/16/18 07:50 Last Admin: 05/20/18 13:41 Dose: 1 tab Albuterol/Ipratropium (Duoneb Neb) 3 ml HHN Q2H PRN PRN Reason: Wheezing Stop: 07/16/18 12:32 Last Admin: 05/17/18 12:39 Dose: 3 ml Allopurinol (Zyloprim) 100 mg PO DAILY [facility] Stop: 07/16/18 08:59 Last Admin: 05/21/18 08:50 Dose: 100 mg Amlodipine Besylate (Norvasc) 10 mg PO DAILY [facility] Stop: 07/16/18 08:59 Last Admin: 05/21/18 08:53 Dose: 10 mg Atorvastatin Calcium (Lipitor) 40 mg PO HS [facility] Stop: 07/16/18 20:59 Last Admin: 05/20/18 20:53 Dose: 40 mg Bisacodyl (Dulcolax 10 Mg Supp) 10 mg RC DAILY PRN PRN Reason: IF MOM INEFFECTIVE Stop: 07/16/18 07:50 Carvedilol (Coreg) 12.5 mg PO BID [facility] Stop: 07/16/18 08:59 Last Admin: 05/21/18 08:53 Dose: 12.5 mg Diphenhydramine HCl (Benadryl) 25 mg PO Q8HR [facility] Stop: 07/16/18 14:59 Last Admin: 05/21/18 12:20 Dose: Not Given Docusate Sodium (Colace) 100 mg PO BID [facility] Stop: 07/16/18 08:59 Last Admin: 05/21/18 08:50 Dose: Not Given Famotidine (Pepcid) 20 mg PO BID [facility] Stop: 07/16/18 08:59 Last Admin: 05/21/18 08:49 Dose: 20 mg Gabapentin (Neurontin) 300 mg PO DAILY [facility] Stop: 07/16/18 08:59 Last Admin: 05/21/18 08:53 Dose: 300 mg Guaifenesin/Dextromethorphan (Robitussin Dm) 10 ml PO Q6HR PRN PRN Reason: Cough Stop: 07/16/18 07:50 Last Admin: 05/17/18 20:30 Dose: 10 ml Hydromorphone HCl (Dilaudid) 2 mg IVP Q4HR PRN PRN Reason: Pain (Severe) Stop: 07/16/18 14:51 Last Admin: 05/21/18 13:01 Dose: 2 mg Sodium Chloride (Nacl 0.45%) 1,000 mls @ 125 mls/hr IV .Q8H [facility] Stop: 07/19/18 11:29 Last Admin: 05/21/18 12:14 Dose: 125 mls/hr Insulin Aspart (Novolog Insulin Sliding Scale) 0 units SUBQ Q6HR [facility]; Protocol Stop: 07/16/18 11:59 Last Admin: 05/21/18 12:13 Dose: 2 units Lisinopril (Zestril) 5 mg PO DAILY [facility] Stop: 07/16/18 08:59 Last Admin: 05/21/18 08:50 Dose: 5 mg Loperamide HCl (Imodium) 2 mg PO Q6H PRN PRN Reason: Diarrhea Stop: 07/16/18 07:50 Magnesium Hydroxide (Milk Of Magnesia) 30 ml PO HS PRN PRN Reason: Constipation Stop: 07/16/18 07:50 Last Admin: 05/19/18 09:13 Dose: 30 ml Multivitamins/Vitamin C (Theragran) 1 tab PO DAILY [facility] Stop: 07/16/18 08:59 Last Admin: 05/21/18 08:53 Dose: 1 tab Ondansetron HCl (Zofran) 4 mg IV Q6H PRN PRN Reason: Nausea / Vomiting Stop: 07/16/18 08:06 Oxybutynin Chloride (Ditropan) 5 mg PO BID [facility] Stop: 07/16/18 08:59 Last Admin: 05/21/18 08:53 Dose: 5 mg Psyllium Hydrophilic Mucilloid (Metamucil) 1 pkt PO DAILY PRN PRN Reason: BOWEL MANAGEMENT Stop: 07/16/18 07:50 Sodium Phosphate (Fleet Enema) 135 ml RC Q48H PRN PRN Reason: IF DULCOLAX INEFFECTIVE Stop: 07/16/18 07:50 Zolpidem Tartrate (Ambien) 5 mg PO HS PRN PRN Reason: Insomnia Stop: 07/16/18 07:50 Last Admin: 05/19/18 20:43 Dose: 5 mg Lab - Result Diagrams 05/21/18 04:20 05/22/18 11:20 Kidney fnc improved w/ BUN/CR of 27/1.3. Hgb/Hct dipped a bit @ 8.8/27 f/u electrolytes & CBC continue IVF Renal US revealed persistent B/L hydronephrosis Abd US 05/04 & Renal US 05/20 revealed Left calculi 2.2 cm & 1.8 cm respectively Abd/Pelvic CT 05/04 showed right 2 mm calculus However Cr. down to 1.3 w/ postobstructive diuresis, urine now is yellow consider to just monitor closely Nutritional Asmnt/Malnutr-PDOC - Dietary Evaluation Malnutrition Findings (Please click <Entered> for more info): Nutritional Asmnt/Malnutrition Start: 05/21/18 16: 48 Text: Status: Complete Freq: Protocol: Document 05/21/18 16:48 [email or web address] (Rec: 05/21/18 17:02 [email or web address] [id number]) Nutritional Asmnt/Malnutrition Patient General Information Nutritional Screening Moderate Risk Diagnosis GERD Pertinent Medical Hx/Surgical Hx BPH, DM, gout, hyperlipidemia, HTn, CAD, OA Subjective Information Pt seen lying in bed at time of visit, awake and alert. Pt stated appetite not as good as usual. Per EMR, PO itnake 75- 100%. Current Diet Order/ Nutrition Support 1800 ADA Pertinent Medications colace, novolog, theragran, nacl 0.45% Pertinent Labs 05/21 BUN 31, Cr 1.5, glucose 153, POC 121-197 Nutritional Hx/Data Height 1.65 m Height (Calculated Centimeters) 165.1 Current Weight (lbs) 99.337 kg Weight (Calculated Kilograms) 99.3 Weight (Calculated Grams) 48891.7 [place] Body Weight 136 Body Mass Index (BMI) 36.4 Weight Status Approriate GI Symptoms GI Symptoms None Last BM 05/20 Difficult in: None Skin Integrity/Comment: reddened to perinal Current %PO Good (75-100%) Estimated Nutritional Goals BEE in Kcals: Adj wt of IBW Calories/Kcals/Kg 25-30 Kcals Calculated 0577-8368 Protein: Adj wt of IBW Protein g/k Protein Calculated 71 Fluid: ml 1775-2130ml (1ml/kcal) Nutritional Problem 1. Problem Problem altered nutrition related lab Etiology renal dysfunction, hx of DM Signs/Symptoms: BUN 31, Cr 1.5, glucose 153, POC 121-197 Malnutrition Alert Is there a minimum of two criteria No selected? Query Text:Check all the applicable criteria. A minimum of two criteria are recommended for diagnosis of either severe or non-severe malnutrition. Malnutrition Related to Morbid Obesity Malnutrition related to morbid obesity No Intervention/Recommendation Comments 1. Continue with current diet as ordered. If BUN/Crea continue high, will consider adding low protein diet. 2. Monitor PO intake, wt, labs and skin integrity 3. F/U as moderate risk in 3-5 days, 05/24-05/26 Expected Outcomes/Goals Expected Outcomes/Goals 1. PO intake to meet at least 75% of nutritional needs. 2. Wt stability, skin to remain intact, labs to approach WNL.
--- NOTE | 2018-05-22 15:29 | General Progress Note ---
Subjective - Review of Systems Events since last encounter: patient awake alert doing better Objective - Results Result Diagrams: 05/21/18 04:20 05/22/18 11:20 Recent Labs: Laboratory Last Values WBC 7.4 Th/cmm (4.8-10.8) 05/21/18 04:20 RBC 2.97 Mil/cmm (3.80-5.80) L 05/21/18 04:20 Hgb 8.8 gm/dL (12-16) L 05/21/18 04:20 Hct 27.0 % (41.0-60) L 05/21/18 04:20 MCV 90.9 fl (80-99) 05/21/18 04:20 MCH 29.7 pg (27.0-31.0) 05/21/18 04:20 MCHC Differential 32.7 pg (28.0-36.0) 05/21/18 04:20 RDW 13.3 % (11.5-20.0) 05/21/18 04:20 Plt Count 228 Th/cmm (150-400) 05/21/18 04:20 MPV 10.2 fl 05/21/18 04:20 Neutrophils % 61.7 % (40.0-80.0) 05/21/18 04:20 Lymphocytes % 23.3 % (20.0-50.0) 05/21/18 04:20 Monocytes % 8.8 % (2.0-10.0) 05/21/18 04:20 Eosinophils % 5.5 % (0.0-5.0) H 05/21/18 04:20 Basophils % 0.7 % (0.0-2.0) 05/21/18 04:20 Eos Smear Source URINE 05/20/18 15:10 Eos Smear Total Cells NONE SEEN (NONE SEEN) 05/20/18 15:10 PT 10.9 SECONDS (9.5-11.5) 05/17/18 08:30 INR 1.05 (0.5-1.4) 05/17/18 08:30 PTT (Actin FS) 24.7 SECONDS (26.0-38.0) L 05/17/18 08:30 Sodium 135 mEq/L (136-145) L 05/22/18 11:20 Potassium 4.7 mEq/L (3.5-5.1) 05/22/18 11:20 Chloride 105 mEq/L (98-107) 05/22/18 11:20 Carbon Dioxide 24.3 mEq/L (21.0-31.0) 05/22/18 11:20 Anion Gap 10.4 (7.0-16.0) 05/22/18 11:20 BUN 27 mg/dL (7-25) H 05/22/18 11:20 Creatinine 1.3 mg/dL (0.7-1.3) 05/22/18 11:20 Est GFR ( Amer) > 60.0 ml/min (>90) 05/22/18 11:20 Est GFR (Non-Af Amer) 58.0 ml/min 05/22/18 11:20 BUN/Creatinine Ratio 20.8 05/22/18 11:20 Glucose 160 mg/dL (70-105) H 05/22/18 11:20 POC Glucose 166 MG/DL (70 - 105) H 05/22/18 11:30 Uric Acid 7.6 mg/dL (4.4-7.6) 05/21/18 04:20 Calcium 9.0 mg/dL (8.6-10.3) 05/22/18 11:20 Phosphorus 3.2 mg/dL (2.5-5.0) 05/21/18 04:20 Magnesium 1.7 mg/dL (1.9-2.7) L 05/21/18 04:20 Total Bilirubin 0.3 mg/dL (0.3-1.0) 05/21/18 04:20 AST 19 U/L (13-39) 05/21/18 04:20 ALT 39 U/L (7-52) 05/21/18 04:20 Alkaline Phosphatase 82 U/L (34-104) 05/21/18 04:20 Total Protein 5.9 gm/dL (6.0-8.3) L 05/21/18 04:20 Albumin 2.7 gm/dL (4.2-5.5) L 05/21/18 04:20 Globulin 3.2 gm/dL 05/21/18 04:20 Albumin/Globulin Ratio 0.8 (1.0-1.8) L 05/21/18 04:20 Urine Source SARABIA PORT 05/20/18 15:10 Urine Color BROWN 05/20/18 15:10 Urine Clarity HAZY (CLEAR) 05/20/18 15:10 Urine pH 6.0 (4.6 - 8.0) 05/20/18 15:10 Ur Specific [place] 1.015 (1.005-1.030) 05/20/18 15:10 Urine Protein 100 mg/dL (NEGATIVE) H 05/20/18 15:10 Urine Glucose (UA) NEGATIVE mg/dL (NEGATIVE) 05/20/18 15:10 Urine Ketones NEGATIVE mg/dL (NEGATIVE) 05/20/18 15:10 Urine Blood LARGE (NEGATIVE) H 05/20/18 15:10 Urine Nitrate NEGATIVE (NEGATIVE) 05/20/18 15:10 Urine Bilirubin NEGATIVE (NEGATIVE) 05/20/18 15:10 Urine Urobilinogen 0.2 E.U./dL (0.2 - 1.0) 05/20/18 15:10 Ur Leukocyte Esterase MODERATE (NEGATIVE) H 05/20/18 15:10 Urine RBC 25-50 /hpf (0-5) H 05/20/18 15:10 Urine WBC 6-10 /hpf (0-5) 05/20/18 15:10 Ur Epithelial Cells NONE SEEN /lpf (FEW) 05/20/18 15:10 Urine Bacteria NONE SEEN /hpf (NONE SEEN) 05/20/18 15:10 Ur Random Sodium 66 mmol/L 05/20/18 15:10 Urine Creatinine 61.0 mg/dl (39.0-259.0) 05/20/18 15:10 - Physical Exam Vitals and I&O: Vital Signs Temp 96.9 F 05/22/18 11:42 Pulse 90 05/22/18 11:42 Resp 18 05/22/18 11:42 BP 130/69 05/22/18 11:42 Pulse Ox 98 05/22/18 11:42 Intake & Output 05/21/18 05/22/18 05/22/18 18:59 06:59 18:59 Intake Total 3951.587 6034.917 1000 Output Total 1700 2600 Balance -310.417 703.165 7087 Weight (lbs) 99.337 kg 99.337 kg Intake: Intake, IV Amount 315.014 3919.917 1000 Sodium Chloride 0.45% 1, 286.318 4910.917 1000 000 ml @ 125 mls/hr IV . Q8H [facility] Rx#:[id number] Oral 550 800 Output: Urine 1700 2600 Other: # Bowel Movements 0 Stool Characteristics Soft Soft Formed Formed Weight Source Bedscale Bedscale Active Medications: Current Medications Acetaminophen (Tylenol) 650 mg PO Q4HR PRN PRN Reason: Pain or Fever >101 Stop: 07/16/18 07:50 Last Admin: 05/19/18 05:52 Dose: 650 mg Acetaminophen/Codeine Phosphate (Tylenol W/Codeine #3) 1 tab PO Q8H PRN PRN Reason: FOR PAIN IF TYLENOL INEFFECTIV Stop: 07/16/18 07:50 Last Admin: 05/20/18 13:41 Dose: 1 tab Albuterol/Ipratropium (Duoneb Neb) 3 ml HHN Q2H PRN PRN Reason: Wheezing Stop: 07/16/18 12:32 Last Admin: 05/17/18 12:39 Dose: 3 ml Allopurinol (Zyloprim) 100 mg PO DAILY [facility] Stop: 07/16/18 08:59 Last Admin: 05/22/18 08:52 Dose: 100 mg Amlodipine Besylate (Norvasc) 10 mg PO DAILY [facility] Stop: 07/16/18 08:59 Last Admin: 05/22/18 08:52 Dose: 10 mg Atorvastatin Calcium (Lipitor) 40 mg PO HS [facility] Stop: 07/16/18 20:59 Last Admin: 05/21/18 20:20 Dose: 40 mg Bisacodyl (Dulcolax 10 Mg Supp) 10 mg RC DAILY PRN PRN Reason: IF MOM INEFFECTIVE Stop: 07/16/18 07:50 Last Admin: 05/22/18 13:55 Dose: 10 mg Carvedilol (Coreg) 12.5 mg PO BID [facility] Stop: 07/16/18 08:59 Last Admin: 05/22/18 08:56 Dose: Not Given Diphenhydramine HCl (Benadryl) 25 mg PO Q8HR [facility] Stop: 07/16/18 14:59 Last Admin: 05/22/18 12:26 Dose: 25 mg Docusate Sodium (Colace) 100 mg PO BID [facility] Stop: 07/16/18 08:59 Last Admin: 05/22/18 08:52 Dose: 100 mg Famotidine (Pepcid) 20 mg PO BID [facility] Stop: 07/16/18 08:59 Last Admin: 05/22/18 08:52 Dose: 20 mg Gabapentin (Neurontin) 300 mg PO DAILY [facility] Stop: 07/16/18 08:59 Last Admin: 05/22/18 08:51 Dose: 300 mg Guaifenesin/Dextromethorphan (Robitussin Dm) 10 ml PO Q6HR PRN PRN Reason: Cough Stop: 07/16/18 07:50 Last Admin: 05/17/18 20:30 Dose: 10 ml Hydromorphone HCl (Dilaudid) 2 mg IVP Q4HR PRN PRN Reason: Pain (Severe) Stop: 07/16/18 14:51 Last Admin: 05/22/18 04:04 Dose: 2 mg Sodium Chloride (Nacl 0.45%) 1,000 mls @ 125 mls/hr IV .Q8H [facility] Stop: 07/19/18 11:29 Last Admin: 05/22/18 12:25 Dose: 125 mls/hr Insulin Aspart (Novolog Insulin Sliding Scale) 0 units SUBQ Q6HR [facility]; Protocol Stop: 07/16/18 11:59 Last Admin: 05/22/18 12:26 Dose: 2 units Lisinopril (Zestril) 5 mg PO DAILY [facility] Stop: 07/16/18 08:59 Last Admin: 05/22/18 08:52 Dose: 5 mg Loperamide HCl (Imodium) 2 mg PO Q6H PRN PRN Reason: Diarrhea Stop: 07/16/18 07:50 Magnesium Hydroxide (Milk Of Magnesia) 30 ml PO HS PRN PRN Reason: Constipation Stop: 07/16/18 07:50 Last Admin: 05/19/18 09:13 Dose: 30 ml Multivitamins/Vitamin C (Theragran) 1 tab PO DAILY [facility] Stop: 07/16/18 08:59 Last Admin: 05/22/18 08:51 Dose: 1 tab Ondansetron HCl (Zofran) 4 mg IV Q6H PRN PRN Reason: Nausea / Vomiting Stop: 07/16/18 08:06 Oxybutynin Chloride (Ditropan) 5 mg PO BID [facility] Stop: 07/16/18 08:59 Last Admin: 05/22/18 08:52 Dose: 5 mg Psyllium Hydrophilic Mucilloid (Metamucil) 1 pkt PO DAILY PRN PRN Reason: BOWEL MANAGEMENT Stop: 07/16/18 07:50 Sodium Phosphate (Fleet Enema) 135 ml RC Q48H PRN PRN Reason: IF DULCOLAX INEFFECTIVE Stop: 07/16/18 07:50 Zolpidem Tartrate (Ambien) 5 mg PO HS PRN PRN Reason: Insomnia Stop: 07/16/18 07:50 Last Admin: 05/19/18 20:43 Dose: 5 mg General: Alert, No acute distress HEENT: Atraumatic Neck: Supple, +2 carotid pulse wo bruit Cardiovascular: Regular rate, Normal S1, Normal S2 Lungs: Clear to auscultation Abdomen: Bowel sounds, Soft Extremities: no Edema Neurological: Normal tone, Sensation intact Skin: no Rash Psych/Mental Status: Mood NL - Procedures Procedures: Procedures Procedure Code Date EXCISION OF CECUM, ENDO [id number] 05/03/18 EXCISION OF ESOPHAGUS, ENDO, DIAGN [id number] 05/03/18 EXCISION OF RECTUM, ENDO [id number] 05/03/18 EXCISION OF STOMACH, ENDO, DIAGN [id number] 05/03/18 EXTIRPATION OF MATTER FROM BLADDER, ENDO [id number] 05/03/18 RESECTION OF PROSTATE, ENDO [id number] 05/17/18 Assessment/Plan - Plan Plan: cpm Nutritional Asmnt/Malnutr-PDOC - Dietary Evaluation Malnutrition Findings (Please click <Entered> for more info): Nutritional Asmnt/Malnutrition Start: 05/21/18 16: 48 Text: Status: Complete Freq: Protocol: Document 05/21/18 16:48 LCHENG (Rec: 05/21/18 17:02 [email or web address] [id number]) Nutritional Asmnt/Malnutrition Patient General Information Nutritional Screening Moderate Risk Diagnosis GERD Pertinent Medical Hx/Surgical Hx BPH, DM, gout, hyperlipidemia, HTn, CAD, OA Subjective Information Pt seen lying in bed at time of visit, awake and alert. Pt stated appetite not as good as usual. Per EMR, PO itnake 75- 100%. Current Diet Order/ Nutrition Support 1800 ADA Pertinent Medications colace, novolog, theragran, nacl 0.45% Pertinent Labs 05/21 BUN 31, Cr 1.5, glucose 153, POC 121-197 Nutritional Hx/Data Height 1.65 m Height (Calculated Centimeters) 165.1 Current Weight (lbs) 99.337 kg Weight (Calculated Kilograms) 99.3 Weight (Calculated Grams) 36094.7 [place] Body Weight 136 Body Mass Index (BMI) 36.4 Weight Status Approriate GI Symptoms GI Symptoms None Last BM 05/20 Difficult in: None Skin Integrity/Comment: reddened to perinal Current %PO Good (75-100%) Estimated Nutritional Goals BEE in Kcals: Adj wt of IBW Calories/Kcals/Kg 25-30 Kcals Calculated 0546-0303 Protein: Adj wt of IBW Protein g/k Protein Calculated 71 Fluid: ml 1775-2130ml (1ml/kcal) Nutritional Problem 1. Problem Problem altered nutrition related lab Etiology renal dysfunction, hx of DM Signs/Symptoms: BUN 31, Cr 1.5, glucose 153, POC 121-197 Malnutrition Alert Is there a minimum of two criteria No selected? Query Text:Check all the applicable criteria. A minimum of two criteria are recommended for diagnosis of either severe or non-severe malnutrition. Malnutrition Related to Morbid Obesity Malnutrition related to morbid obesity No Intervention/Recommendation Comments 1. Continue with current diet as ordered. If BUN/Crea continue high, will consider adding low protein diet. 2. Monitor PO intake, wt, labs and skin integrity 3. F/U as moderate risk in 3-5 days, 05/24-05/26 Expected Outcomes/Goals Expected Outcomes/Goals 1. PO intake to meet at least 75% of nutritional needs. 2. Wt stability, skin to remain intact, labs to approach WNL.
--- NOTE | 2018-05-22 17:15 | Progress Notes ---
DATE: 05/22/2018 UROLOGY PROGRESS NOTE SUBJECTIVE: The patient is doing well with no blood in the urine. No pain in the kidneys or bladder and creatinine falling further to 1.3. The bilateral hydronephrosis is difficult to explain in the presence of normal creatinine or baseline creatinine; therefore, I ordered a cystogram to rule out a chronic reflux from a hyperactive or hyperreflexic bladder. I discussed this with the radiologist who understood the reasoning and was willing to do it tomorrow. Soon after I got a call from the nurses saying the patient needs to be discharged today because of some issue with the beds in the shelter. I told them that they could discharge him as long as he gets a cystogram as an outpatient to follow up on the hydronephrosis. Meanwhile, the Javier catheter will have to be kept in to complete the study after which the catheter can be removed for a trial of voiding. JOB# [id number]
== END 2018-05-22 20:45 | DRG 713 ==
LOC: MSI 06:50 → ICU 14:00 → MSI 05-18 16:31
PROVIDERS: ADMIT Internal Medicine; ATTEND Internal Medicine
PROC: 0VT08ZZ Resection of Prostate, Via Natural or Artificial Opening Endoscopic (ICD-10-PCS; principal; 2018-05-17)
DX: N40.1 Benign prostatic hyperplasia with lower urinary tract symptoms (principal); E41 Nutritional marasmus; N17.9 Acute kidney failure, unspecified; M10.9 Gout, unspecified; E78.5 Hyperlipidemia, unspecified; I25.10 Atherosclerotic heart disease of native coronary artery without angina pectoris; M19.90 Unspecified osteoarthritis, unspecified site; Z68.36 Body mass index [BMI] 36.0-36.9, adult; R33.8 Other retention of urine; Z88.6 Allergy status to analgesic agent; K21.9 Gastro-esophageal reflux disease without esophagitis; N13.9 Obstructive and reflux uropathy, unspecified; I12.9 Hypertensive chronic kidney disease with stage 1 through stage 4 chronic kidney disease, or unspecified chronic kidney disease; E11.22 Type 2 diabetes mellitus with diabetic chronic kidney disease; N18.9 Chronic kidney disease, unspecified; E11.40 Type 2 diabetes mellitus with diabetic neuropathy, unspecified; N20.0 Calculus of kidney; R31.0 Gross hematuria
CPT/HCPCS: 36415-UA; 71045-TC; 76770-TC; 80048-TC; 80053-TC; 81001-TC; 81015-TC; 82570-TC; 82948-90; 83735-TC; 84100-TC; 84300-TC; 84550-TC; 85025-TC; 85610-TC; 88305-90; 88312-90; 88313-90; 93005; 94640; 94760; 96372; 97530; A4217; J0696; J1170; J1815; J2405; J2704; J2710; J3010; J7030; J7040; V2790; X3904; X6026; X6258; X7704; Z7610